=== PATIENT | female | born 1945 | race Caucasian/White ===

== ENCOUNTER 2017-03-15 13:25 | Inpatient (IN) | payer MEDICARE ==
[2017-03-15] MEDS ORDERED: Nitroglycerin 2% Ointment 1 INCH/1 GM Packet ONE (14:14)
[2017-03-15 14:21] LABS: #Basophils 0.1 thou/uL (0.0-0.2); #Eosinphils 0.1 thou/uL (0.0-0.7); #Lymphocytes 0.7 thou/uL (1.20-3.40); #Monocytes 0.4 thou/uL (0.11-0.59); %Basophils 0.6 % (0.0-1.0); %Eosinophils 0.8 % (0.0-10.0); %Lymphocytes 7.5 % (21.0-51.0); %Monocytes 4.7 % (0.0-10.0); Mean Platelet Volume 6.9 fL (7.4-10.4); Red Blood Cell (RBC) Count 4.78 mill/uL (4.20-5.40); White Blood Cell (WBC) Count 9.2 thou/uL (4.8-10.8)
--- NOTE | 2017-03-15 14:35 | RAD ---
PORTABLE CHEST ONE VIEW: 03/15/2017 2:24 p.m. HISTORY: Chest pain. Shortness of breath. COMPARISON: 06/27/2015 FINDINGS: The heart is enlarged. The aorta is tortuous. No confluent areas of consolidation, pneumothorax, f rank pulmonary edema, or pleural effusions are seen. IMPRESSION: No acute process. POS: [facility]
[2017-03-15 14:37] LABS: ALT (SGPT) 18 U/L (8-55); AST (SGOT) 21 U/L (5-34); Alkaline Phosphatase 69 U/L (40-150); Anion Gap 17 mmol/L (10-20); BUN (Urea Nitrogen) 24 mg/dL (9.8-20.1); Bilirubin, Total 0.5 mg/dL (0.2-1.2); Calc. Creatinine Clearance 0 mL/min (70-130); Calcium 10.5 mg/dL (7.8-10.44); Carbon Dioxide 23 mmol/L (23-31); Chloride 104 mmol/L (98-107); Estimated GFR-MDRD 56; Globulin 2.4 g/dL (2.4-3.5); Lipase 8 U/L (8-78); Protein, Total 5.9 g/dL (6.0-8.3)
[2017-03-15 14:38] LABS: Troponin I 0.015 ng/mL (< 0.028)
[2017-03-15 18:01] LABS: Oxyhemoglobin 95.1 % (94.0-97.0); Sodium 140 mmol/L (135-148)
[2017-03-15 18:02] LABS: Mode 4L NC; Modified Allen's Test POSITIVE; Vent NO
[2017-03-15 18:41] LABS: Troponin I 0.011 ng/mL (< 0.028)
[2017-03-15] MEDS ORDERED: Azithromycin 500 MG in Sodium Chloride 0.9% 250 ML 250 ML IVPB SCH (18:45)
[2017-03-15] MEDS ORDERED: cefTRIAXone\\ROCEPHIN 1 GM in Sodium Chloride 0.9% 100 ML IVPB SCH (18:45)
[2017-03-15] MEDS ORDERED: Acetaminophen 325 MG TAB PO PRN (18:48)
[2017-03-15] MEDS ORDERED: Ondansetron HCl/PF 4 MG/2 ML Vial IVP PRN (18:49)
[2017-03-15] MEDS ORDERED: Zolpidem Tartrate 5 MG TAB PO PRN (18:49)
[2017-03-15 19:26] VITALS: BMI 26.5
--- NOTE | 2017-03-15 20:40 | RAD ---
PA AND LATERAL CHEST: Date: 03-15-17 History: Acute respiratory failure. Comparison: 03-15-17 FINDINGS: Cardiac silhouette is enlarged. Pulmonary vasculature is within normal limits. There are increased b ibasilar interstitial densities as well as mild increased interstitial densities in the right midlun g zone. There is suggested blunting of the left lateral costophrenic angle which may represent a sma ll left pleural effusion and atelectasis. Vascular calcification seen in the thoracic aorta. There i s left glenohumeral osteoarthropathy. Right convex curvature of the thoracolumbar spine is present. No other interval change. IMPRESSION: 1. Bibasilar increased interstitial opacities which may be related to developing bibasilar infectiou s process. Follow up to complete resolution is recommended. 2. Mild cardiomegaly. POS: [facility]
[2017-03-15] MEDS ORDERED: Gabapentin 300 MG CAP PO SCH ×2 (21:00→21:30)
[2017-03-15] MEDS ORDERED: Folic Acid 1 MG TAB PO SCH ×2 (21:00→21:30)
--- NOTE | 2017-03-15 21:06 | HP ---
PRIMARY CARE PHYSICIAN: Stas Rain M.D. GRID CASTER: Dr. Shrestha The patient was referred to the [facility] from the Emergency Department after pro matthews was referred to the ER by Dr. Rain. HISTORY OF PRESENT ILLNESS: The patient states she is short of breath, has been unable to take a de ep breath for 7 days. She has marked dyspnea on exertion at a few steps, some tightness in her ches t with exertion that goes away with 10 minutes rest. She does not give any history of orthopnea or paroxysmal nocturnal dyspnea. Does not give any history of fever, sweats or chills. She does have a history of rheumatoid arthritis, vasculitis. PAST MEDICAL HISTORY: Rheumatoid arthritis, vasculitis in 2015, hypertension, dyslipidemia. CURRENT MEDICATIONS: Gabapentin 300 mg 3 times a day, Ziac 10 two tablets a day, hydrochlorothiazid e 12.5 one a day, Mobic 15 mg a day, folic acid 1 mg a day, prednisone 20 mg a day, Zocor 10 mg a da y, ramipril unknown dose daily, aspirin 81 mg a day. ALLERGIES: No known drug allergies. PAST MEDICAL HISTORY: Methotrexate by injection weekly, Rituxan by injection. PAST SURGICAL HISTORY: Right total hip replacement, bilateral carpal tunnel surgery, bilateral cynthia ract surgery with implants. FAMILY HISTORY: Mother with Alzheimer's and breast cancer. Father with prostate cancer, one sister alive and well. SOCIAL HISTORY: , is surrogate decision maker. Cigarettes, quit almost 2 years ago. Alcohol occasionally. CODE STATUS: FULL code status. REVIEW OF SYSTEMS: General: Some minimal ataxia, walks with a walker. No dizziness or fainting. Eyes: No double vis ion, blurred vision, flashing lights. ENT: No ear pain or drainage. No nasal bleeding. No troubl e swallowing. Cardiac: See present illness. Respirations: No history of asthma or wheezing. She has had a dry cough in the past. Gastrointestinal: No nausea, vomiting, diarrhea or constipation. No abdominal pain. Genitourinary: History of frequency, no dysuria or hematuria. Musculoskeleta l: Pain in her feet, she relates to her vasculitis. No swelling in her legs. No true muscle pains . Neurologic: No strokes, seizures or focal weakness. Psychiatric: No anxiety or depression. Sk in: She has had erosions on her legs, has seen Dr. Mitchell in Wound Care. Currently receiving home care for a residual wound on her left heel. Heme/Lymph: No tender or swollen lymph nodes in axill a, inguinal or cervical area. PHYSICAL EXAMINATION: GENERAL: She is alert, mildly short of breath, cooperative, pleasant lady. VITAL SIGNS: Blood pressure 145/79, pulse ox 80-85% on room air, has required 4 liters to get up to 92, respirations 18-22, pulse 60. HEENT: Pupils equal, round with implants. Extraocular movements are intact, sclerae white. Tympan ic membranes clear. Nose clear. Throat is clear. CHEST: Clear to percussion. Clear anteriorly. She has coarse rales over the bottom one-third of h er chest bilaterally posteriorly. HEART: Regular rate and rhythm, no murmurs, no gallops were appreciated. First and second heart so unds were clear. ABDOMEN: Soft, bowel sounds are normal. There is no hepatosplenomegaly, no mass, no rebound. EXTREMITIES: Reveal no cyanosis, clubbing or edema. PULSES: Carotid, radial, and femoral pulses intact. Right pedal pulse was brisk. Left pedal pulse was difficultly palpable. SKIN: Warm and dry. She has a bandaged erosion on her left heel. HEME/LYMPH: No tender or swollen lymph nodes were palpable in axilla, inguinal or cervical area. NEUROLOGICAL: Cranial nerves II-XII are intact. Moves all extremities. Deep tendon reflexes symme tric. LABORATORY AND X-RAY FINDINGS: Chest x-ray done in the emergency room is remarkably under penetrate d and inadequate. EKG: Regular sinus rhythm, ST-T depression in the lateral limb leads, T-wave rosey nges with ST abnormality in the inferior leads, in the lateral leads. Left axis deviation, possible left ventricular hypertrophy reviewed by me. The computer system is currently down and I cannot ge t into her laboratory. ASSESSMENT: 1. Acute respiratory failure with hypoxemia, chest pain, vasculitis, hypertension, dyslipidemia. PLAN: Stat PA and lateral chest x-ray for better view, stat arterial blood gases. As the computer is down now, I tended to get troponins x2 three hours apart. The patient does have pressure-like ch est pain; however, before ordering any other studies for chest pain, I need to make a definitive rolo gnosis for her acute respiratory failure which is in progress. Her care at this point is being hamp ered by the fact that our computer system is down.
[2017-03-15] MEDS ORDERED: Atorvastatin Calcium 10 MG TAB PO SCH (21:30)
[2017-03-15] MEDS: cefTRIAXone\\ROCEPHIN 1 GM in Sodium Chloride 0.9% 100 ML IVPB SCH (21:30)
[2017-03-15 21:33] LABS: Troponin I Less than 0.010 ng/mL (< 0.028)
[2017-03-15] MEDS: Azithromycin 500 MG in Sodium Chloride 0.9% 250 ML 250 ML IVPB SCH (22:04)
[2017-03-15] MEDS ORDERED: Nitroglycerin 2% Ointment 1 INCH/1 GM Packet TOP SCH (23:59)
--- NOTE | 2017-03-16 | PDOC.EVN ---
Event Note - Event Note Event Note: dX: CHEST PAIN,PROBABLE pna,VASCULITIS
[2017-03-16] MEDS ORDERED: predniSONE 20 MG TAB PO SCH (08:00)
--- NOTE | 2017-03-16 08:01 | PDOC.PN ---
- Subjective Encounter Start Date: 03/16/17 Encounter Start Time: 07:59 Subjective: SOB stable -: Pleuritic chest pain improving -: No fevers this AM - Objective MAR Reviewed: Yes Vital Signs & Weight: Vital Signs (12 hours) Temp Pulse Resp BP Pulse Ox 03/16/17 03:55 98.1 F 55 L 18 138/78 97 03/16/17 00:15 55 L 18 96/55 L 94 L 03/15/17 20:00 97.7 F 61 19 130/65 96 I&O: 03/15/17 03/16/17 03/17/17 06:59 06:59 06:59 Intake Total 590 Output Total 600 Balance -10 Result Diagrams: 03/15/17 14:14 03/15/17 14:14 Phys Exam - Physical Examination Constitutional: NAD HEENT: moist MMs, sclera anicteric Neck: no nodes, no JVD Respiratory: no wheezing, no rales bibasilar crackles Cardiovascular: no significant murmur, no rub Gastrointestinal: soft, non-tender, no distention, positive bowel sounds Neurological: non-focal, moves all 4 limbs Psychiatric: normal affect Skin: no rash, normal turgor Dx/Plan (1) Pneumonia Code(s): J18.9 - PNEUMONIA, UNSPECIFIED ORGANISM Status: Acute - Plan Bibasilar Community Acquired PNA * resulting in Fever (at home of 102), Pleuritic CP and SOB * serial cardiac enzymes normal, thus ACS ruled out * check ECHO to rule out sytolic/diastolic dysfunction in the setting of elevated BNP (will give 20mg IV lasix now) * Blood cxs: NGTD * Emperic Abx: Ceftriaxone and Azithromycin * O2 prn * monitor pulse ox * check labs in AM Dispo: Continue tele monitoring.
[2017-03-16] MEDS: Gabapentin 300 MG CAP PO SCH ×4 (08:48→21:43)
[2017-03-16] MEDS: predniSONE 20 MG TAB PO SCH (08:48)
[2017-03-16] MEDS: Meloxicam 15 MG TAB PO SCH (08:48)
[2017-03-16] MEDS ORDERED: Bisoprolol Fumarate/HCTZ 10 mg/6.25 mg Tablet PO SCH (09:00)
[2017-03-16] MEDS ORDERED: Meloxicam 15 MG TAB PO SCH (09:00)
[2017-03-16] MEDS: Bisoprolol Fumarate/HCTZ 10 mg/6.25 mg Tablet PO SCH (09:52)
[2017-03-16] MEDS ORDERED: Furosemide 20 MG/2 ML VIAL SLOW IVP SCH (11:30)
[2017-03-16] MEDS ORDERED: Atorvastatin Calcium 10 MG TAB PO SCH (21:00)
[2017-03-16] MEDS: Simvastatin 20 MG TAB PO SCH (21:43)
[2017-03-16] MEDS: Folic Acid 1 MG TAB PO SCH (21:43)
[2017-03-16] MEDS: cefTRIAXone\\ROCEPHIN 1 GM in Sodium Chloride 0.9% 100 ML IVPB SCH (21:43)
[2017-03-16] MEDS: Azithromycin 500 MG in Sodium Chloride 0.9% 250 ML 250 ML IVPB SCH (22:18)
[2017-03-17 06:55] LABS: #Eosinphils 0.2 thou/uL (0.0-0.7); #Lymphocytes 1.6 thou/uL (1.20-3.40); #Monocytes 0.7 thou/uL (0.11-0.59); %Basophils 0.4 % (0.0-1.0); %Eosinophils 2.5 % (0.0-10.0); %Monocytes 9.8 % (0.0-10.0); Hematocrit 42.5 % (36.0-47.0); Mean Platelet Volume 7.4 fL (7.4-10.4); Red Blood Cell (RBC) Count 4.57 mill/uL (4.20-5.40); White Blood Cell (WBC) Count 7.5 thou/uL (4.8-10.8)
[2017-03-17 07:16] LABS: Anion Gap 12 mmol/L (10-20); BUN (Urea Nitrogen) 26 mg/dL (9.8-20.1); Calc. Creatinine Clearance 55 mL/min (70-130); Calcium 9.7 mg/dL (7.8-10.44); Carbon Dioxide 30 mmol/L (23-31); Chloride 102 mmol/L (98-107); Estimated GFR-MDRD 53; Magnesium 1.8 mg/dL (1.6-2.6)
--- NOTE | 2017-03-17 09:38 | PDOC.PN ---
- Subjective Encounter Start Date: 03/17/17 Encounter Start Time: 09:36 Subjective: SOB stable -: no f/c -: no n/v - Objective MAR Reviewed: Yes Vital Signs & Weight: Vital Signs (12 hours) Temp Pulse Resp BP Pulse Ox 03/17/17 04:00 97.6 F 59 L 20 121/58 L 96 03/16/17 21:40 97.6 F 59 L 20 Weight Admit Weight 150 lb Weight 150 lb I&O: 03/16/17 03/17/17 03/18/17 06:59 06:59 06:59 Intake Total 590 1930 Output Total 600 2400 Balance -10 470 Result Diagrams: 03/17/17 06:40 03/17/17 06:40 Phys Exam - Physical Examination Constitutional: NAD HEENT: moist MMs, sclera anicteric Neck: no nodes, no JVD Respiratory: no wheezing, no rhonchi diminished at bases Gastrointestinal: soft, non-tender, positive bowel sounds Neurological: non-focal, moves all 4 limbs Psychiatric: normal affect Skin: no rash, normal turgor Dx/Plan (1) Pneumonia Code(s): J18.9 - PNEUMONIA, UNSPECIFIED ORGANISM Status: Acute - Plan Bibasilar Community Acquired PNA * resulting in Fever (at home of 102), Pleuritic CP and SOB * serial cardiac enzymes normal, thus ACS ruled out * s/p 1 dose of IV lasix on 03-16-17 * ECHO: EF 55-60% * Blood cxs: NGTD * Emperic Abx: Ceftriaxone and Azithromycin * O2 prn - wean as tolerated * monitor pulse ox * check labs in AM Dispo: Continue tele monitoring.
[2017-03-17] MEDS: predniSONE 20 MG TAB PO SCH (09:54)
[2017-03-17] MEDS: Gabapentin 300 MG CAP PO SCH ×4 (09:55→21:22)
[2017-03-17] MEDS: Bisoprolol Fumarate/HCTZ 10 mg/6.25 mg Tablet PO SCH (09:55)
[2017-03-17] MEDS: Meloxicam 15 MG TAB PO SCH (09:55)
[2017-03-17] MEDS: cefTRIAXone\\ROCEPHIN 1 GM in Sodium Chloride 0.9% 100 ML IVPB SCH (21:21)
[2017-03-17] MEDS: Simvastatin 20 MG TAB PO SCH (21:22)
[2017-03-17] MEDS: Folic Acid 1 MG TAB PO SCH (21:22)
[2017-03-17] MEDS: Azithromycin 500 MG in Sodium Chloride 0.9% 250 ML 250 ML IVPB SCH (21:40)
[2017-03-18 06:03] LABS: #Eosinphils 0.1 thou/uL (0.0-0.7); #Lymphocytes 1.8 thou/uL (1.20-3.40); #Monocytes 0.9 thou/uL (0.11-0.59); #Neutrophils 6.4 thou/uL (1.40-6.50); %Basophils 0.3 % (0.0-1.0); %Eosinophils 1.4 % (0.0-10.0); %Lymphocytes 19.5 % (21.0-51.0); %Monocytes 9.6 % (0.0-10.0); Mean Platelet Volume 7.3 fL (7.4-10.4); Red Blood Cell (RBC) Count 4.73 mill/uL (4.20-5.40); White Blood Cell (WBC) Count 9.3 thou/uL (4.8-10.8)
[2017-03-18 06:27] LABS: Anion Gap 13 mmol/L (10-20); BUN (Urea Nitrogen) 25 mg/dL (9.8-20.1); Calc. Creatinine Clearance 53 mL/min (70-130); Calcium 9.9 mg/dL (7.8-10.44); Carbon Dioxide 28 mmol/L (23-31); Chloride 106 mmol/L (98-107); Estimated GFR-MDRD 51
[2017-03-18 07:29] VITALS: BP 140/82; TEMP 98.2
[2017-03-18] MEDS: predniSONE 20 MG TAB PO SCH (07:33)
[2017-03-18] MEDS: Gabapentin 300 MG CAP PO SCH (07:34)
[2017-03-18] MEDS: Bisoprolol Fumarate/HCTZ 10 mg/6.25 mg Tablet PO SCH (07:34)
[2017-03-18] MEDS: Meloxicam 15 MG TAB PO SCH (07:35)
--- NOTE | 2017-03-18 08:25 | PDOC.PN ---
- Subjective Encounter Start Date: 03/18/17 Encounter Start Time: 08:25 Subjective: SOB improved again today -: No cp -: No chill/n/v - Objective MAR Reviewed: Yes Vital Signs & Weight: Vital Signs (12 hours) Temp Pulse Resp BP Pulse Ox 03/18/17 07:29 98.2 F 61 18 140/82 91 L 03/18/17 04:00 97.8 F 53 L 18 135/77 94 L 03/17/17 21:25 98.5 F 64 18 93 L 03/17/17 21:23 98.5 F 64 18 124/68 93 L Weight Admit Weight 150 lb Weight 150 lb I&O: 03/17/17 03/18/17 03/19/17 06:59 06:59 06:59 Intake Total 1930 1590 Output Total 2400 1500 Balance -470 90 Result Diagrams: 03/18/17 05:45 03/18/17 05:45 Phys Exam - Physical Examination Constitutional: NAD HEENT: moist MMs, sclera anicteric Neck: no nodes, no JVD Respiratory: no wheezing symmetric chest expansion Cardiovascular: no significant murmur, no rub Gastrointestinal: soft, non-tender, positive bowel sounds Neurological: non-focal Psychiatric: normal affect Skin: no rash, normal turgor Dx/Plan (1) Pneumonia Code(s): J18.9 - PNEUMONIA, UNSPECIFIED ORGANISM Status: Acute - Plan Bibasilar Community Acquired PNA * resulting in Fever (at home of 102), Pleuritic CP and SOB * serial cardiac enzymes normal, thus ACS ruled out * s/p 1 dose of IV lasix on 03-16-17 * ECHO: EF 55-60% * Blood cxs: NGTD * Emperic Abx: Ceftriaxone and Azithromycin - will discharge home on PO levaquin today. * O2 weaned off Discharge Home today. Discharge Summary: [id number]
--- NOTE | 2017-03-18 09:30 | DIS ---
DATE OF ADMISSION: 03/15/2017 DATE OF DISCHARGE: 03/18/2017 PRIMARY DISCHARGE DIAGNOSES: 1. Bibasilar community-acquired pneumonia. 2. Acute hypoxemic respiratory failure. HOSPITAL COURSE SUMMARY: This is a very pleasant 71-year-old female who presented with shortness of breath and initially some pleuritic chest pain. As a result of the pleuritic chest pain, the patie nt was initially admitted for chest pain rule out; however, given her chest x-ray with bibasilar inf iltrate, fever at home of 102 and pleurisy. She was diagnosed with bibasilar community-acquired p[facility] and treated with ceftriaxone and azithromycin. She was placed on oxygen and this has been no w weaned off. Her echocardiogram revealed an ejection fraction of 55%-60% and was checked as a resu lt of mild fluid overload on her chest x-ray and has responded well to single dose of IV Lasix on . Her shortness of breath had significantly wheezing improved and again she is off oxygen r equesting to go home today. For discharge physical examination, labs and imaging, please refer to my progress note from earlier today. DISCHARGE MEDICATIONS: Reviewed and reconciled. Please refer to chart for details. New medication includes Levaquin. DISCHARGE PLAN/DISPOSITION. 1. Discharged home today. 2. PCP followup in 1 week. 3. New medications will include Levaquin to complete a one-week course of antibiotics for community -acquired pneumonia. 4. Activity as tolerated. The patient has been told to avoid strenuous activity and if she feels s hort of breath or has pleuritic chest pain, she is to sit down or lie down immediately. I do not wa nt her over exerting herself, then she understands the significance of this. 5. Discharge diet, resume home diet.
== END 2017-03-18 10:51 | disposition home or self-care (01) | DRG 193 ==
LOC: SCSER 13:25 → 2SW 15:22 → OBSVTOIN 18:17 → 2NO 03-16 14:33
PROVIDERS: ADMIT Internal Medicine; ATTEND Internal Medicine
DX: J18.9 Pneumonia, unspecified organism (principal); J96.01 Acute respiratory failure with hypoxia; I10 Essential (primary) hypertension; E78.5 Hyperlipidemia, unspecified; Z87.891 Personal history of nicotine dependence; E87.70 Fluid overload, unspecified; M05.272 Rheumatoid vasculitis with rheumatoid arthritis of left ankle and foot; S91.302D Unspecified open wound, left foot, subsequent encounter
CPT/HCPCS: 36415; 71010; 71020; 80048; 80053; 82553; 82805; 83690; 83735; 83880; 84484; 85025; 87040; 93005; 93306; A4216; J0456; J0696; J1940; J7050; J7506

== ENCOUNTER 2017-06-23 12:46 | Outpatient (CLI) | payer MEDICARE ==
[~2017-06-23 12:46] MED LIST: Gadobenate Dimeglumine 529 MG/1 ML (20ML VIAL) ONE
--- NOTE | 2017-06-23 15:01 | MRI ---
MRI LEFT ANKLE WITH AND WITHOUT CONTRAST: HISTORY: L97.326 (nonpressure chronic ulcer). History of osteomyelitis. COMPARISON: Ankle MRI from 2016. FINDINGS: There is an open wound of the lateral malleolus, which extends to the cortex and medullary canal of t he distal fibula. There is abnormal loss of T1 signal osseous destruction, as well as a peripherally enhancing collection. The marrow signal of the talus and calcaneus is maintained. There is hindfoot varus. Chronic thickening of ATFL and syndesmotic ligaments. IMPRESSION: 1. Soft tissue defect of the lateral malleolus with fibular osteomyelitis. There is cortical and me dullary destruction with a sinus tract extending from the medullary canal to the skin. A peripherall y enhancing phlegmonous collection is present, likely representing intraosseous abscess formation. 2. Longitudinal split tear of peroneus brevis tendon, above and below the level of the lateral malle olus, with hindfoot varus. 3. Likely infectious myositis of the flexor and extensor muscles. 4. Severe superficial and deep soft tissue edema. 5. Tendinosis of the Achilles tendon with paratenonitis. POS: [facility]
== END 2017-06-23 12:47 | disposition home or self-care (01) ==
LOC: MRI 12:46
DX: L97.326 Non-pressure chronic ulcer of left ankle with bone involvement without evidence of necrosis (principal); M86.8X7 Other osteomyelitis, ankle and foot; S96.812A Strain of other specified muscles and tendons at ankle and foot level, left foot, initial encounter; M21.172 Varus deformity, not elsewhere classified, left ankle; M76.62 Achilles tendinitis, left leg
CPT/HCPCS: 82565; A9579

== ENCOUNTER 2018-06-30 11:20 | Outpatient (CLI) | payer MEDICARE ==
--- NOTE | 2018-06-30 15:17 | PRG ---
DATE OF SERVICE: 06/30/2018 HISTORY: Ms. Mary Kay Gannon is a very pleasant 73-year-old who presents to the Wound Center for evaluation of her left ewnhk-ubh-hslt amputation stump. The patient states that since she was last seen in the Wound Center on 11/11/2016, she was seen by Orthopedic Surgery and ultimately decided to proceed with left rnaad-xaj-udif amputation after several surgical procedures involving her ankle. Prior to undergoing encgd-mvt-mnfl amputation, the patient states that she was also found to have significant arterial insufficiency of the left lower extremity. The patient states she is presently receiving dressing changes of Santyl for the ulceration of her left rdfzx-wrw-ihfc amputation stump. She states she received dressing changes 3 times per week with the assistance of Home Health. PHYSICAL EXAMINATION: VITAL SIGNS: Temperature 97.8, pulse 46, respirations 16, blood pressure 179/83. EXTREMITIES: An ulceration of the left zernl-umf-glyn amputation stump is present, which measures approximately 3.5 x 6.3 cm. Hypergranulation is present within the wound margins. No purulent drainage is associated with the wound. No maceration of the skin of the periwound is noted. No significant edema of the left fodta-atz-hbqw amputation stump is present on exam today. Significant irritation of the skin surrounding the wound is present, which the patient attributes to adhesive from paper tape. ASSESSMENT AND PLAN: 1. Ulceration of left niwed-egv-fauk amputation stump as described above. Dressing changes of Santyl, 4x4s and Kerlix will be continued 3 times per week after cleansing and irrigation with the assistance of Home Health. The patient will also have Calmoseptine applied to the periwound at the time of dressing changes. I will see Ms. Gannon again in 2 weeks. 2. Hypertension. 3. Osteoarthritis. 4. History of broken fifth toe. Job ID: [id number]
[2018-06-30] MEDS ORDERED: Sodium Chloride 0.9% 15 ML NEB ONE (17:44)
== END 2018-06-30 11:21 | disposition home or self-care (01) ==
LOC: WCC 11:20
PROVIDERS: ATTEND Family Medicine
DX: T87.89 Other complications of amputation stump (principal); L97.929 Non-pressure chronic ulcer of unspecified part of left lower leg with unspecified severity; I10 Essential (primary) hypertension; M19.90 Unspecified osteoarthritis, unspecified site
CPT/HCPCS: A4218

== ENCOUNTER 2018-07-14 11:32 | Outpatient (CLI) | payer MEDICARE ==
--- NOTE | 2018-07-14 13:13 | PRG ---
DATE OF SERVICE: 07/14/2018 SUBJECTIVE: Ms. Mary Kay Gannon is a very pleasant 73-year-old, who presents to the Wound Center for evaluation of a wound of her left axalr-soa-fhye amputation stump. At the time of the patient's last visit, Ms. Gannon stated that after her visit to the Wound Center on 11/11/2016, she had been seen by Orthopedic Surgery and ultimately decided to proceed with left pacdy-dze-itby amputation after several surgical procedures involving her ankle. Prior to undergoing imewa-gcl-lqdl amputation, the patient states she was found to have significant arterial insufficiency of the left lower extremity. The patient is currently receiving dressing changes of Santyl for the ulceration of her left pakoj-fnh-muca amputation stump three times per week after cleansing and irrigation with the assistance of Home Health. PHYSICAL EXAMINATION: VITAL SIGNS: Temperature 97.4, pulse 51, respirations are 17, and blood pressure 181/82. EXTREMITIES: An ulceration of the left kobuf-cor-cngl amputation stump is present, which measures approximately 5.8 x 3.3 cm. The dimensions of the wound at the time of the patient's last visit were approximately 3.5 x 6.3 cm. Necrotic and nonviable tissue present within the wound margins was debrided with an excisional full-thickness debridement with the use of a curette. Hypergranulation at the periphery of the wound was treated with the application of silver nitrate. No purulent drainage is associated with the wound. No erythema of the skin surrounding the wound is present. No maceration of the skin of the periwound is noted. A popliteal pulse is palpable on the left. No significant edema of the left xxlmo-hxg-ycyh amputation stump is present on exam today. ASSESSMENT AND PLAN: 1. Ulceration of left fxhnz-vol-toqg amputation stump as described above. Dressing changes of Santyl, 4x4s, and Kerlix will be continued 3 times per week after cleansing and irrigation with the assistance of Home Health. The patient will also continue to have Calmoseptine applied to the periwound at the time of dressing changes. I will see Ms. Gannon again in 2 weeks. 2. Hypertension. 3. Osteoarthritis. Job ID: [id number]
[2018-07-14] MEDS ORDERED: Sodium Chloride 0.9% 15 ML NEB ONE ×2 (15:57→19:55)
== END 2018-07-14 11:33 | disposition home or self-care (01) ==
LOC: WCC 11:32
PROVIDERS: ATTEND Family Medicine
DX: T87.89 Other complications of amputation stump (principal); I10 Essential (primary) hypertension; M19.90 Unspecified osteoarthritis, unspecified site; Z89.512 Acquired absence of left leg below knee
CPT/HCPCS: A4218

== ENCOUNTER 2018-07-28 11:16 | Outpatient (CLI) | payer MEDICARE ==
[~2018-07-28 11:16] MED LIST changes: -Gadobenate Dimeglumine 529 MG/1 ML (20ML VIAL) ONE; +Lidocaine 2% PF 100 mg/5 ml Syringe ONE; +Sodium Chloride 0.9% 15 ML NEB ONE
--- NOTE | 2018-07-28 13:12 | PRG ---
DATE OF SERVICE: 07/28/2018 HISTORY: Ms. Mary Kay Gannon is a very pleasant 73-year-old, who presents to the Wound Center for evaluation of a wound of her left muxvy-vyh-ajij amputation stump. The patient previously stated that after her visit to the Wound Center on 11/11/2016, she had been seen by Orthopedic Surgery, and ultimately decided to proceed with left ejjdl-nua-fljp amputation after several surgical procedures involving her ankle. Prior to undergoing uqbtp-wwz-wlaq amputation, the patient states she was found to have significant arterial insufficiency of the left lower extremity. The patient is presently receiving dressing changes of Santyl for the ulceration of her left pnlpv-ibp-fqqe amputation stump 3 times per week after cleansing and irrigation with the assistance of Home Health. PHYSICAL EXAMINATION: VITAL SIGNS: Temperature 97.9, pulse 48, blood pressure 149/70. EXTREMITIES: An ulceration of the left ycasw-jch-vasn amputation stump is present, which measures approximately 4.8 x 2.7 cm. The dimensions of the wound at the time of the patient's last visit were approximately 5.8 x 3.3 cm. Necrotic and nonviable tissue present within the wound margins was debrided with an excisional full-thickness debridement with the use of a curette. Hypergranulation at the periphery of the wound was treated with the application of silver nitrate. No purulent drainage is associated with the wound. No erythema of the skin surrounding the wound is present. No maceration of the skin of the periwound is noted. No significant edema of the left ekyha-cfj-fuwg amputation stump is present on exam today. ASSESSMENT AND PLAN: 1. Ulceration of left twspv-eja-ddlx amputation stump as described above. Dressing changes of Santyl will be continued 3 times per week after cleansing and irrigation with the assistance of Home Health. The patient will also continue to have Calmoseptine applied to the periwound at the time of dressing changes. I will see Ms. Gannon again in 2 weeks. 2. Hypertension. 3. Osteoarthritis. Job ID: [id number]
== END 2018-07-28 11:17 | disposition home or self-care (01) ==
LOC: WCC 11:16
PROVIDERS: ATTEND Family Medicine
DX: T87.89 Other complications of amputation stump (principal); L97.829 Non-pressure chronic ulcer of other part of left lower leg with unspecified severity; I10 Essential (primary) hypertension; M19.90 Unspecified osteoarthritis, unspecified site
CPT/HCPCS: 11042; A4218; J2001

== ENCOUNTER 2018-08-11 11:27 | Outpatient (CLI) | payer MEDICARE ==
--- NOTE | 2018-08-11 12:53 | PRG ---
DATE OF SERVICE: 08/11/2018 HISTORY: Ms. Mary Kay Gannon is a very pleasant 73-year-old, who presents to the Wound Center for evaluation of a wound of her left isuez-aab-pcet amputation stump. The patient previously stated that after her visit to the Wound Center on 11/11/2016, she had been seen by Orthopedic Surgery and ultimately decided to proceed with a left jbqcf-fas-tojz amputation after several surgical procedures involving her ankle. Prior to undergoing snodx-bnt-hvxm amputation, the patient stated, she was found to have significant arterial insufficiency of the left lower extremity. The patient is currently receiving dressing changes of Santyl for the ulceration of her left krrxv-fjk-rcso amputation stump 3 times per week after cleansing and irrigation with the assistance of Home Health. PHYSICAL EXAMINATION: VITAL SIGNS: Temperature 97.8, pulse 45, blood pressure 177/79. EXTREMITIES: An ulceration of the left jromd-jbq-xebv amputation stump is present, which measures approximately 4.0 x 2.1 cm. The dimensions of the wound at the time of the patient's last visit were approximately 4.8 x 2.7 cm. Necrotic and nonviable tissue present within the wound margins was debrided with an excisional full-thickness debridement with the use of a curette. Hypergranulation within the wound margins was treated with the application of silver nitrate. No purulent drainage is associated with the wound. No erythema of the skin surrounding the wound is present. No maceration of the skin of the periwound is noted. No significant edema of the left tggav-hau-hakr amputation stump is present on exam today. ASSESSMENT AND PLAN: 1. Ulceration of left dmufn-ufb-yejf amputation stump as described above. Dressing changes of Santyl will be continued 3 times per week after cleansing and irrigation with the assistance of Home Health. The patient will also continue to have Calmoseptine applied to the periwound at the time of dressing changes. I will see Ms. Gannon again on 09/08/2018 at 10:00 a.m. At this time, she will also be seen by the water meter mechanic. The patient has been told that she may utilize Xeroform gauze or Medihoney in lieu of Santyl. 2. Hypertension. 3. Osteoarthritis. Job ID: [id number]
[2018-08-11] MEDS ORDERED: Sodium Chloride 0.9% 15 ML NEB ONE (19:04)
[2018-08-11] MEDS ORDERED: Lidocaine 2% 11 ML SYR ONE (19:04)
== END 2018-08-11 11:28 | disposition home or self-care (01) ==
LOC: WCC 11:27
PROVIDERS: ATTEND Family Medicine
DX: T87.89 Other complications of amputation stump (principal); L97.929 Non-pressure chronic ulcer of unspecified part of left lower leg with unspecified severity; I10 Essential (primary) hypertension; M19.90 Unspecified osteoarthritis, unspecified site
CPT/HCPCS: A4218

== ENCOUNTER 2018-09-08 10:20 | Outpatient (CLI) | payer MEDICARE ==
--- NOTE | 2018-09-08 12:06 | PRG ---
DATE OF SERVICE: 09/08/2018 HISTORY: Ms. Mary Kay Gannon is a very pleasant 73 years old, who presents to the Wound Center for evaluation of a wound of her left bxgip-esi-ekpc amputation stump. The patient previously stated that after her visit to the Wound Center on 11/11/2016, she had been seen by Orthopedic Surgery and ultimately decided to proceed with a left batnl-pew-mbwa amputation after several surgical procedures involving her ankle. Prior to undergoing qtlkr-crz-frwl amputation, the patient stated she was found to have significant arterial insufficiency of the left lower extremity. The patient is presently receiving dressing changes of Santyl for her ulceration of her left imycy-csx-kitb amputation stump 3 times per week after cleansing and irrigation with the assistance of Home Health. PHYSICAL EXAMINATION: VITAL SIGNS: Temperature 98.1, pulse 48, respirations 15, blood pressure 165/77. EXTREMITIES: An ulceration of the left vggqs-pbn-wcvk amputation stump is present, which measures approximately 4.0 x 1.8 cm. The dimensions of the wound at the time of the patient's last visit were approximately 4.0 x 2.1 cm. Necrotic and nonviable tissue present within the wound margins was debrided with an excisional full-thickness debridement. No purulent drainage is associated with the wound. No erythema of the skin surrounding the wound is present. No maceration of the skin of the periwound is noted. No significant edema of the left hleuu-vii-kuml amputation stump is present on exam today. ASSESSMENT AND PLAN: 1. Ulceration of left glvya-wqh-bcbx amputation stump as described above. Dressing changes of Santyl or Medihoney are to be performed 3 times per week after cleansing and irrigation with the assistance of Home Health. The patient will also continue to have Calmoseptine applied to the periwound at the time of dressing changes. I will see Ms. Gannon again in 3 weeks. The patient has been seen by the hydraulic lift driver today. The patient has also been told that she may utilize Xeroform gauze in lieu of Santyl or Medihoney. 2. Hypertension. 3. Osteoarthritis. Job ID: [id number]
[2018-09-08] MEDS ORDERED: Sodium Chloride 0.9% 15 ML NEB ONE (19:55)
== END 2018-09-08 10:21 | disposition home or self-care (01) ==
LOC: WCC 10:20
PROVIDERS: ATTEND Family Medicine
DX: T87.89 Other complications of amputation stump (principal); L97.829 Non-pressure chronic ulcer of other part of left lower leg with unspecified severity; I10 Essential (primary) hypertension; M19.90 Unspecified osteoarthritis, unspecified site
CPT/HCPCS: 11042; A4218

== ENCOUNTER 2018-10-03 11:29 | Outpatient (CLI) | payer MEDICARE ==
--- NOTE | 2018-10-03 12:20 | PRG ---
DATE OF SERVICE: 10/03/2018 HISTORY: Ms. Mary Kay Gannon is a very pleasant 73-year-old, who presents to the wound center for evaluation of a wound of her left unocy-rjy-dbky amputation stump. Previously, the patient stated that after her visit to the wound center on 11/11/2016 she had been seen by Orthopedic Surgery and ultimately decided to proceed with a left dygay-zio-pynx amputation after several surgical procedures involving her ankle. Prior to undergoing zkvuf-alm-trxu amputation, the patient stated she was found to have significant arterial insufficiency of the left lower extremity. The patient states that she continues to receive dressing changes with the assistance of Home Health. PHYSICAL EXAMINATION: VITAL SIGNS: Temperature 98.0, pulse 63, respirations 16, and blood pressure 183/105. EXTREMITIES: A full-thickness ulceration of the left jfmfl-tsu-sdrz amputation stump is present,which measures approximately 4.4 x 1.6 cm. The dimensions of the wound at the time of the patient's last visit were approximately 4.0 x 1.8 cm. Granulation tissue is present within the wound margins. Necrotic and nonviable tissue present within the wound margins was debrided with an excisional full-thickness debridement with the use of a curette. Moderate serous drainage is associated with the wound. No purulent drainage is associated with the wound. Erythema ofthe skin surrounding the wound is present and appears to be secondary to irritationfrom the secondary dressing. No maceration of the skin of the periwound is noted.No significant edema of the left jwaba-ofe-yhqm amputation stump is present on examtoday. Hypergranulation within the wound margins was treated with the application of silver nitrate. ASSESSMENT AND PLAN: 1. Ulceration of left chgsa-qau-mlrp amputation stump as described above. Dressing changes of Xeroform gauze and Mepilex Border are to be performed 3 times per week after cleansing and irrigation. Home Health will be discontinued as per the patient's request. The patient will also continue to have Calmoseptine applied to the periwound at the time of dressing changes. I will see Ms. Gannon again in 2 weeks. 2. Hypertension. 3. Osteoarthritis. Job ID: [id number] MTDD
[2018-10-03] MEDS ORDERED: Lidocaine 2% 11 ML SYR ONE (21:51)
[2018-10-03] MEDS ORDERED: Sodium Chloride 0.9% 15 ML NEB ONE (21:51)
== END 2018-10-03 11:30 | disposition home or self-care (01) ==
LOC: WCC 11:29
PROVIDERS: ATTEND Family Medicine
DX: T87.89 Other complications of amputation stump (principal); L97.929 Non-pressure chronic ulcer of unspecified part of left lower leg with unspecified severity; I10 Essential (primary) hypertension; M19.90 Unspecified osteoarthritis, unspecified site
CPT/HCPCS: 11042; A4218

== ENCOUNTER 2018-10-17 14:00 | Outpatient (CLI) | payer MEDICARE ==
--- NOTE | 2018-10-17 14:23 | PRG ---
DATE OF SERVICE: 10/17/2018 HISTORY: Ms. Mary Kay Gannon is a very pleasant 73-year-old, who presents to the Wound Center for evaluation of a wound of her left gdljr-ynz-wdmc amputation stump. The patient previously stated that after her visit to the Wound Center on 11/11/2016, she had been seen by Orthopedic Surgery and ultimately decided to proceed with a left wppvl-ehp-drll amputation after several surgical procedures involving her ankle. Prior to undergoing qbpka-kns-oxzy amputation, the patient stated she was found to have significant arterial insufficiency of the left lower extremity. Since the patient's last visit, Ms. Gannon has been receiving dressing changes of Xeroform and bordered gauze 3 times per week after cleansing and irrigation. PHYSICAL EXAMINATION: VITAL SIGNS: Temperature 97.6, pulse 47, respirations 18, blood pressure 165/80. EXTREMITIES: An ulceration of the left yigsw-hdr-xeoz amputation stump is present, which measures approximately 3.7 x 1.4 cm. The dimensions of the wound at the time of the patient's last visit were approximately 4.4 x 1.6 cm. Granulation tissue is present within the wound margins. Necrotic and nonviable tissue present within the wound margins was debrided with an excisional full-thickness debridement with the use of a curette. No purulent drainage is associated with the wound. Erythema of the skin surrounding the wound is still present and appears to be secondary to irritation from the secondary dressing. No maceration of the skin of the periwound is noted. No significant edema of the left nfige-txr-pnpg amputation stump is present on exam today. Hypergranulation within the wound margins was treated with the application of silver nitrate. ASSESSMENT AND PLAN: 1. Ulceration of left wzavy-dea-nwmx amputation stump as described above. Dressing changes of Xeroform gauze and Mepilex Border are to be performed 3 times per week after cleansing and irrigation. The patient will continue to have Calmoseptine applied to the periwound at the time of dressing changes. I will see Ms. Gannon again in 2 weeks. 2. Hypertension. 3. Osteoarthritis. Job ID: [id number]
[2018-10-17] MEDS ORDERED: Lidocaine 2% 11 ML SYR ONE (19:08)
[2018-10-17] MEDS ORDERED: Sodium Chloride 0.9% 15 ML NEB ONE (19:08)
== END 2018-10-17 14:01 | disposition home or self-care (01) ==
LOC: WCC 14:00
PROVIDERS: ATTEND Family Medicine
DX: T87.89 Other complications of amputation stump (principal); I10 Essential (primary) hypertension; M19.90 Unspecified osteoarthritis, unspecified site
CPT/HCPCS: 11042; A4218

== ENCOUNTER 2018-10-31 15:00 | Outpatient (CLI) | payer MEDICARE ==
--- NOTE | 2018-10-31 15:03 | PRG ---
DATE OF SERVICE: 10/31/2018 SUBJECTIVE: Mary Kay Urban is a very pleasant 73-year-old, who presents to the Wound Center for evaluation of a wound of her left wwtgm-rir-htus amputation stump. Previously, the patient stated that after her visit to the Wound Center on 11/11/2016, she had been seen by Orthopedic Surgery and ultimately decided to proceed with a left youiw-rmv-krnd amputation after several surgical procedures involving her ankle. Prior to undergoing dzagf-wzc-leiq amputation, the patient stated she was found to have significant arterial insufficiency of the left lower extremity. Since the patient's last visit, Ms. Gannon has been receiving dressing changes of Xeroform gauze and Mepilex Border 3 times per week after cleansing and irrigation. PHYSICAL EXAMINATION: VITAL SIGNS: Temperature 97.9, pulse 80, respirations 18, blood pressure 166/85. EXTREMITIES: An ulceration of the left hemal-swg-hhuv amputation stump is present, which measures approximately 3.5 x 1.4 x 0.1 cm. The dimensions of the wound at the time of the patient's last visit were approximately 3.7 x 1.4 cm. Granulation tissue was present within the wound margins. Hypergranulation within the wound margins was treated with the application of silver nitrate. Moderate drainage is associated with the wound, serosanguineous. Erythema of the skin surrounding the wound is still present and again appears to be secondary to irritation from the secondary dressing. No maceration of the skin of the periwound is noted. No significant edema of the left ivwgg-uvb-oxou amputation stump is present on exam today. ASSESSMENT AND PLAN: 1. Ulceration of left rbiyc-tmi-bmzj amputation stump as described above. Dressing changes of Xeroform gauze and ABD followed by the patient's compression garment are to be performed on a daily basis after cleansing and irrigation. The patient will continue to have Calmoseptine applied to the periwound at the time of dressing changes. I will see Ms. Gannon again in 2 weeks. 2. Hypertension. 3. Osteoarthritis. Job ID: [id number]
[2018-10-31] MEDS ORDERED: Sodium Chloride 0.9% 15 ML NEB ONE (18:00)
== END 2018-10-31 15:01 | disposition home or self-care (01) ==
LOC: WCC 15:00
PROVIDERS: ATTEND Family Medicine
DX: T87.89 Other complications of amputation stump (principal); I10 Essential (primary) hypertension; M19.90 Unspecified osteoarthritis, unspecified site; Z89.512 Acquired absence of left leg below knee
CPT/HCPCS: A4218

== ENCOUNTER 2018-11-16 16:27 | Outpatient (CLI) | payer MEDICARE ==
--- NOTE | 2018-11-16 14:18 | PRG ---
DATE OF SERVICE: 11/16/2018 HISTORY: Ms. Mary Kay Gannon is a very pleasant 73-year-old, who presents to the Wound Center for evaluation of a wound of her left xhzwm-xxl-vlmu amputation stump. The patient previously stated that after her visit to the Wound Center on 11/11/2017, she had been seen by Orthopedic Surgery and ultimately decided to proceed with a left dakfs-nay-ydtb amputation after several surgical procedures involving her ankle. Prior to undergoing zlxiz-zpy-xkhd amputation, the patient stated she was found to have significant arterial insufficiency of the left lower extremity. Since the patient's last visit, Ms. Gannon has been receiving dressing changes of Xeroform gauze for her left hnelz-gdo-gely amputation stump wound. PHYSICAL EXAMINATION: VITAL SIGNS: Temperature 97.5, pulse 43, respirations 18, blood pressure 151/93. EXTREMITIES: An ulceration of the left wliwb-prp-nzym amputation stump is present, which measures approximately 1.0 x 3.0 cm. Granulation tissue is present within the wound margins. No purulent drainage is associated with the wound. Erythema of the skin surrounding the wound is present and again appears to be secondary to irritation from a secondary dressing. No maceration of the skin of the periwound is noted. No significant edema of the left jovgj-qhe-fcsz amputation stump is present on exam today. ASSESSMENT AND PLAN: 1. Ulceration of left rsdvg-wtz-tbiz amputation stump as described above. Dressing changes of Xeroform gauze will be continued on a daily basis after cleansing and irrigation. The patient will continue to have Calmoseptine applied to the periwound as needed at the time of dressing changes. I will see Ms. Gannon again in 3 weeks. The patient is now being seen by a rubber compounder formulator. 2. Hypertension. 3. Osteoarthritis. Job ID: [id number]
[2018-11-16] MEDS ORDERED: Sodium Chloride 0.9% 15 ML NEB ONE (18:00)
== END 2018-11-16 16:28 | disposition home or self-care (01) ==
LOC: WCC 16:27
PROVIDERS: ATTEND Family Medicine
DX: T87.89 Other complications of amputation stump (principal); L97.829 Non-pressure chronic ulcer of other part of left lower leg with unspecified severity; I10 Essential (primary) hypertension; M19.90 Unspecified osteoarthritis, unspecified site
CPT/HCPCS: 97602; A4218

== ENCOUNTER 2018-11-30 12:53 | Outpatient (CLI) | payer MEDICARE ==
--- NOTE | 2018-11-30 13:53 | BD ---
DEXA BONE SCAN: HISTORY: Age-related osteoporosis. DEXA bone scan was performed using H[employer] bone mineral density unit. Comparison made to previous exam from 04/01/2017. Lumbar spine:. L1 0.86 T score -1.2 Z score 0.8 L2 0.88 T score -1.3 Z score 0.8 L3 1.12 T score 0.3 Z score 2.6 L4 1.12 T score 0.5 Z score 2.9 Composite 1.01 T score -0.4 Z score 1.8 Findings compatible with normal bone mineral density. Left hip: Femoral neck 0.62 T score -2.1 Z score -0.2 Composite 0.74 T score -1.7 Z score -0.1 Findings compatible with osteopenia. IMPRESSION: Findings suggesting osteopenia. The patient has mild increased risk of osteoporotic fractures. Transcribed Date/Time: 11/30/2018 2:12 PM
--- NOTE | 2018-11-30 14:26 | MMO ---
Bilateral MAMMO Bilat Screen [facility]. CLINICAL HISTORY: Patient is 73 years old and is seen for screening. The patient has the following family history of breast cancer: mother, at age 80. The patient has no personal history of cancer. VIEWS: The views performed were: bilateral craniocaudal with tomosynthesis and bilateral mediolateral oblique with tomosynthesis. FILMS COMPARED: The present examination has been compared to a prior imaging study performed at [facility] on 02/11/2017. MAMMOGRAM FINDINGS: The breasts are heterogeneously dense, which could obscure a lesion on mammography. There are stable benign appearing calcifications seen in both breasts. There are no suspicious masses, suspicious calcifications, or new areas of architectural distortion. IMPRESSION: THERE IS NO MAMMOGRAPHIC EVIDENCE OF MALIGNANCY. A ROUTINE FOLLOW-UP MAMMOGRAM IN 1 YEAR IS RECOMMENDED. THE RESULTS OF THIS EXAM WERE SENT TO THE PATIENT. ACR BI-RADS Category 2 - Benign finding MAMMOGRAPHY NOTE: 1. A negative mammogram report should not delay a biopsy if a dominant of clinically suspicious mass is present. 2. Approximately 10% to 15% of breast cancers are not detected by mammography. 3. Adenosis and dense breasts may obscure an underlying neoplasm.
== END 2018-11-30 12:54 | disposition home or self-care (01) ==
LOC: BICMAMMO 12:53
PROVIDERS: ATTEND Family Medicine
DX: Z12.31 Encounter for screening mammogram for malignant neoplasm of breast (principal); Z13.820 Encounter for screening for osteoporosis; Z78.0 Asymptomatic menopausal state; Z80.3 Family history of malignant neoplasm of breast
CPT/HCPCS: 77063; 77067; 77080

== ENCOUNTER 2018-12-07 13:20 | Outpatient (CLI) | payer MEDICARE ==
--- NOTE | 2018-12-07 14:21 | PRG ---
DATE OF SERVICE: 12/07/2018 HISTORY: Ms. Mary Kay Gannon is a very pleasant 73-year-old, who presents to the Wound Center for evaluation of a wound of her left dnjud-zsu-nowy amputation stump. The patient previously stated that after her visit to the Wound Center on 11/11/2017, she had been seen by Orthopedic Surgery and ultimately decided to proceed with a left lmaae-kla-xues amputation after several surgical procedures involving her ankle. Prior to undergoing left kaskf-yne-yxaw amputation, the patient stated she was found to have significant arterial insufficiency of the left lower extremity. Since the patient's last visit, Ms. Gannon has been receiving dressing changes of Xeroform gauze for her left eyixo-kij-jzaa amputation stump wound. Calmoseptine is applied to the periwound at the time of dressing changes. PHYSICAL EXAMINATION: VITAL SIGNS: Temperature 97.7, pulse 49, respirations 17, and blood pressure 137/87. EXTREMITIES: An ulceration of the left sisyw-qrd-zxie amputation stump is present, which measures approximately 2.5 x 0.9 cm. The dimensions of the wound at the time of the patient's visit on 11/16/2018 were approximately 1.0 x 3.0 cm. Granulation tissue is present within the wound margins. No purulent drainage is associated with the wound. No cellulitis of the left mhbbj-ykz-mohl amputation stump is appreciated. No maceration of the skin of the periwound is noted. No significant edema of the left jkuau-rcn-ikph amputation stump is present on today's exam. ASSESSMENT AND PLAN: 1. Ulceration of left dwtkk-smv-cqfu amputation stump as described above. Dressing changes of Xeroform gauze will be continued 3 times per week after cleansing and irrigation. Calmoseptine to the periwound will be continued as needed at the time of dressing changes. I will see Ms. Gannon again in 3 weeks. 2. Hypertension. 3. Osteoarthritis. Job ID: [id number]
[2018-12-07] MEDS ORDERED: Sodium Chloride 0.9% 15 ML NEB ONE (15:00)
[2018-12-07] MEDS ORDERED: Lidocaine 2% PF 100 mg/5 ml Syringe ONE (15:00)
== END 2018-12-07 13:21 | disposition home or self-care (01) ==
LOC: WCC 13:20
PROVIDERS: ATTEND Family Medicine
DX: T87.89 Other complications of amputation stump (principal); L97.929 Non-pressure chronic ulcer of unspecified part of left lower leg with unspecified severity; I10 Essential (primary) hypertension; M19.90 Unspecified osteoarthritis, unspecified site
CPT/HCPCS: 97602; A4218; J2001

== ENCOUNTER 2018-12-28 13:27 | Outpatient (CLI) | payer MEDICARE ==
--- NOTE | 2018-12-28 12:00 | PRG ---
DATE OF SERVICE: 12/28/2018 SUBJECTIVE: Ms. Rosa Gannon is a very pleasant 73-year-old, who presents to the Wound Center for evaluation of a wound of her left ijkgh-ooi-rzyy amputation stump. The patient previously stated that after her visit to the Wound Center on 11/11/2017, she had been seen by Orthopedic Surgery and ultimately decided to proceed with a left hfaya-uqb-lfci amputation after several surgical procedures involving her ankle. Prior to undergoing left zavar-erw-wawe amputation, the patient stated she was found to have significant arterial insufficiency of the left lower extremity. Since the patient's last visit, Ms. Gannon has been receiving dressing changes of Xeroform gauze for her left ejibu-hqe-wvdz amputation stump wound. Calmoseptine is applied to the periwound at the time of dressing changes. PHYSICAL EXAMINATION: VITAL SIGNS: Temperature 98.0, pulse 55, respirations 18, blood pressure 149/78. EXTREMITIES: An ulceration of the left qwfuu-cfz-aiss amputation stump is present, which measures approximately 2.2 x 0.8 cm. The dimensions of the wound at the time of the patient's visit on 12/07/2018 were approximately 2.5 x 0.9 cm. Granulation tissue is present within the wound margins. No purulent drainage is associated with the wound. No cellulitis of the left wfaax-blm-vsoi amputation stump is appreciated. No maceration of the skin of the periwound is noted. No significant edema of the left iqeoj-qob-fuyl amputation stump is present on today's exam. ASSESSMENT AND PLAN: 1. Ulceration of left iqlux-lfo-jgum amputation stump as described above. Dressing changes of Xeroform gauze will be continued 3 times per week after cleansing and irrigation. Calmoseptine to the periwound will be continued as needed at the time of dressing changes. I have asked the patient to return to clinic in 2 weeks. 2. Hypertension. 3. Osteoarthritis. Job ID: [id number]
[2018-12-28] MEDS ORDERED: Sodium Chloride 0.9% 15 ML NEB ONE (18:00)
== END 2018-12-28 13:28 | disposition home or self-care (01) ==
LOC: WCC 13:27
PROVIDERS: ATTEND Family Medicine
DX: T81.89XD Other complications of procedures, not elsewhere classified, subsequent encounter (principal); I10 Essential (primary) hypertension; M19.90 Unspecified osteoarthritis, unspecified site; Z89.512 Acquired absence of left leg below knee
CPT/HCPCS: 97602; A4218

== ENCOUNTER 2019-03-30 10:07 | Inpatient (IN) | payer MEDICARE ==
[2019-03-30 11:26] LABS: Bilirubin Negative (Negative); Blood, Urine Large (Negative); Glucose, Urine (Dipstick) Negative (Negative); Leukocyte Negative (Negative); Nitrite Negative (Negative); Protein, Urine (Dipstick) 100 mg/dL (Neg-Trace); Urobilinogen 0.2 mg/dL (Less than 2)
[2019-03-30 11:28] LABS: Clarity Clear (Clear)
--- NOTE | 2019-03-30 11:31 | RAD ---
Exam: Chest one view HISTORY:Decreased appetite x2 weeks Comparison: 03/15/1970 FINDINGS: Cardiac silhouette: Normal Aorta: Atherosclerosis of the aortic knob Pulmonary vessels: Normal Costophrenic angles: Clear LUNGS: Patchy interstitial opacities in the lung bases may represent atelectasis, aspiration or infil trate. Pneumothorax: None Osseous abnormalities: None IMPRESSION: 1. Patchy interstitial opacities lung bases may represent atelectasis, pneumonia or aspiration. 2. Atherosclerosis of the aortic knob
[2019-03-30 11:32] LABS: Bacteria/HPF 2+ HPF (None Seen); RBC/HPF Greater than 50 HPF (0-3); Squamous Epithelial 0-3 HPF (0-3); WBC/HPF 0-3 HPF (0-3)
--- NOTE | 2019-03-30 11:45 | CT ---
CT BRAIN WITHOUT CONTRAST: Date: 03/30/19 HISTORY: Fall, headache. FINDINGS: There are changes of cortical atrophy and chronic small vessel ischemic disease. The ventricular size is appropriate and the basilar cisterns are patent. No evidence of acute infarct, hemorrhage, midlin e shift, or abnormal extra-axial fluid collections are seen. The bony calvarium is intact. The visual ized paranasal sinuses and mastoid air cells are well aerated. IMPRESSION: No CT evidence of acute intracranial process. POS: OFF
[2019-03-30 12:15] LABS: #Eosinphils 0.3 thou/uL (0.0-0.7); #Lymphocytes 0.9 thou/uL (1.20-3.40); #Monocytes 0.6 thou/uL (0.11-0.59); %Basophils 0.3 % (0.0-1.0); %Eosinophils 2.1 % (0.0-10.0); %Lymphocytes 6.7 % (21.0-51.0); %Monocytes 4.3 % (0.0-10.0); %Neutrophils 86.7 % (42.0-75.0); Hemoglobin 10.1 g/dL (12.0-16.0); Mean Corpuscular HGB CONC 33.4 g/dL (32.0-36.0); Mean Corpuscular Hemoglobin 27.1 pg (27.0-31.0); Mean Platelet Volume 7.3 fL (7.4-10.4); Platelet Count 326 thou/uL (130-400); RBC Distribution Width 14.1 % (11.5-14.5); Red Blood Cell (RBC) Count 3.72 mill/uL (4.20-5.40); White Blood Cell (WBC) Count 13.9 thou/uL (4.8-10.8)
[2019-03-30 12:36] LABS: ALT (SGPT) 9 U/L (8-55); AST (SGOT) 11 U/L (5-34); Alkaline Phosphatase 140 U/L (40-110); Anion Gap 15 mmol/L (10-20); BUN (Urea Nitrogen) 69 mg/dL (9.8-20.1); Bilirubin, Total 0.5 mg/dL (0.2-1.2); Calc. Creatinine Clearance 0 mL/min (70-130); Calcium 11.1 mg/dL (7.8-10.44); Carbon Dioxide 25 mmol/L (23-31); Chloride 94 mmol/L (98-107); Estimated GFR-MDRD 19; Glucose 124 mg/dL (83-110); Lipase 6 U/L (8-78); Sodium 131 mmol/L (136-145)
[2019-03-30 12:58] LABS: CKMB 0.9 ng/mL (0-6.6)
--- NOTE | 2019-03-30 13:27 | PDOC.FPRHP ---
- History of Present Illness Chief Complaint: decreased appetite and food tolerance History of Present Illness: Historians include patient, , son, and caregiver. Patient is oriented to person ([facility]), place ([facility]), unsure of date or year. Patient's reports progressive confusion over the past few weeks (steep decline that has been evaluated by PCP). Gets worse throughout the day. Decreased appetite with vomiting of solid food and difficulty swallowing solids. Tolerates liquid. Has lost between 10 to 25 lbs. Patient fell 1 month ago which appears to have triggered the decline per family. Trauma to head at that time. Evaluated in [place] at that time. Reports weakness and fatigue. Voice has weakened. Not completing sentences. Difficulty with focusing. Not able to live independently now. Last Wednesday after endoscopy, which diagnosed a gastric ulcer and upper esophagitis, she experienced dark stools and on Wednesday as well. Patient reports occasional abdominal pain. Has Urinary incontinence at baseline but this has worsened. 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 She is usually sharp of mind, finishes sentences without difficulty, and oriented x4. PCP: Briseyda GI: David ED Course: In ED pt received supportive care and workup. Fluids given. - Allergies/Adverse Reactions Allergies Allergy/AdvReac Type Severity Reaction Status Date / Time No Known Allergies Allergy Verified 03/15/17 18:35 - Home Medications Medication Instructions Recorded Confirmed Type Hydrochlorothiazide 12.5 mg PO DAILY 06/11/15 03/30/19 History Meloxicam [Mobic] 15 mg PO DAILY 06/11/15 03/30/19 History Simvastatin [Zocor] 20 mg PO HS 06/11/15 03/30/19 History Bisoprolol Fumarate/HCTZ [Ziac] 2 tab PO DAILY 05/15/16 03/30/19 History Folic Acid 1 mg PO DAILY 05/15/16 03/31/19 History Megestrol Acetate 400 mg PO BID 03/31/19 03/31/19 History - History PMHx: - RA - HTN - HLD - CKD - Vasculitis, dx in 2014 - Gastric ulcer, GERD - Urinary incontinence - Normocytic anemia PSHx: - 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 Mother: Breast cancer. Dementia. Uncle: DM. Social: Tobacco: 50 pack-years (stopped in 2016), social alcohol use, no drug use Retired. Lives with in [place]. Caregiver 5 days per week. Has 2 healthy sons that are . - Review of Systems ROS unobtainable: other (patient distractable, family gave ROS) General: reports: weight/appetite/sleep changes, fatigue. denies: fever/chills , night sweats Eyes: denies: vision changes ENT: denies: nasal congestion Respiratory: denies: cough, congestion, shortness of breath Cardiovascular: denies: chest pain, edema Gastrointestinal: reports: vomiting (no hematemesis), abdominal pain (minimal), GI bleeding (melena), other (no bowel incontinence). denies: diarrhea, constipation Genitourinary: reports: incontinence (worse than at baseline). denies: dysuria , polyuria, discharge Skin: denies: rashes, lesions, itching Musculoskeletal: reports: arthritis/arthralgias. denies: pain, swelling Neurological: reports: weakness. denies: seizure Psychological: denies: anxiety, depression - Vital signs BP: 100/71 HR: 79 RR: 16 Tmax: _ Pox: 95% on RA - Physical Exam Constitutional: NAD, awake, alert and oriented (oriented to person and place, not to time), other (thin body habitus) HEENT: normocephalic and atraumatic, PERRLA, EOMI (distracted and had to be prompted to keep following w/ her eyes), conjunctiva clear, no scleral icterus, grossly normal vision, TM's clear and intact, grossly normal hearing, oropharynx clear -HEENT: mucous membranes dry Neck: supple, trachea midline, no LAD, no thyromegaly Chest: no-tender to palpation, no lesions Heart: RRR, normal S1/S2, no murmurs/rubs/gallops, pulses present, no edema Lungs: CTAB, no respiratory distress, no retractions Abdomen: soft, non-tender, bowel sounds present, no masses/distention, no hernias Musculoskeletal: normal structure, normal tone (L leg amputated below knee, well healed scar over stump, no dehiscence or evidence of infection) Neurological: CN II-XII intact (although had trouble obeying commands) -Neurological: strength 4/5 in hands b/l, strength 3/5 in lower extremities, could not follow commands to assess for pronator drift or asterixis, did not finish sentences, could form words that were logical and made sense Skin: no rash/lesions, no jaundice Heme/Lymphatic: no unusual bruising or bleeding, no purpura, no petechia Psychiatric: intact recent and remote memory FMR H&P: Results - Labs Result Diagrams: 04/02/19 03:53 04/02/19 03:53 Lab results: WBC 13.9 thou/uL (4.8-10.8) H 03/30/19 11:58 Hgb 10.1 g/dL (12.0-16.0) L 03/30/19 11:58 Hct 30.1 % (36.0-47.0) L 03/30/19 11:58 MCV 81.0 fL (78.0-98.0) 03/30/19 11:58 Plt Count 326 thou/uL (130-400) 03/30/19 11:58 Neutrophils % 86.7 % (42.0-75.0) H 03/30/19 11:58 Sodium 131 mmol/L (136-145) L 03/30/19 11:58 Potassium 3.0 mmol/L (3.5-5.1) L 03/30/19 11:58 Chloride 94 mmol/L (98-107) L 03/30/19 11:58 Carbon Dioxide 25 mmol/L (23-31) 03/30/19 11:58 BUN 69 mg/dL (9.8-20.1) H 03/30/19 11:58 Creatinine 2.51 mg/dL (0.6-1.1) H 03/30/19 11:58 Glucose 124 mg/dL (83-110) H 03/30/19 11:58 Calcium 11.1 mg/dL (7.8-10.44) H 03/30/19 11:58 Total Bilirubin 0.5 mg/dL (0.2-1.2) 03/30/19 11:58 AST 11 U/L (5-34) 03/30/19 11:58 ALT 9 U/L (8-55) 03/30/19 11:58 Alkaline Phosphatase 140 U/L (40-110) H 03/30/19 11:58 CK-MB (CK-2) 0.9 ng/mL (0-6.6) 03/30/19 11:58 Serum Total Protein 6.0 g/dL (6.0-8.3) 03/30/19 11:58 Albumin 3.0 g/dL (3.4-4.8) L 03/30/19 11:58 Lipase 6 U/L (8-78) L 03/30/19 11:58 Urine Ketones Negative mg/dL (Negative) 03/30/19 11:08 Urine Blood Large (Negative) A 03/30/19 11:08 Urine Nitrite Negative (Negative) 03/30/19 11:08 Ur Leukocyte Esterase Negative (Negative) 03/30/19 11:08 Urine RBC Greater than 50 HPF (0-3) A 03/30/19 11:08 Urine WBC 0-3 HPF (0-3) 03/30/19 11:08 Ur Squamous Epith Cells 0-3 HPF (0-3) 03/30/19 11:08 Urine Bacteria 2+ HPF (None Seen) A 03/30/19 11:08 - Radiology Interpretation Chest x-ray Status: report reviewed by me (patchy interstitial opacities) CT scan - head Status: report reviewed by me (chronic changes) FMR H&P: A/P - Problem List (1) Acute kidney injury superimposed on chronic kidney disease Current Visit: Yes Status: Acute Code(s): N17.9 - ACUTE KIDNEY FAILURE, UNSPECIFIED; N18.9 - CHRONIC KIDNEY DISEASE, UNSPECIFIED (2) Acute encephalopathy Current Visit: Yes Status: Acute Code(s): G93.40 - ENCEPHALOPATHY, UNSPECIFIED (3) Dyslipidemia Current Visit: No Status: Chronic Code(s): E78.5 - HYPERLIPIDEMIA, UNSPECIFIED (4) Hypertension Current Visit: No Status: Chronic Code(s): I10 - ESSENTIAL (PRIMARY) HYPERTENSION (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 Code(s): M05.20 - RHEUMATOID VASCULITIS WITH RHEUMATOID ARTHRITIS OF [facility] SITE (6) Hypokalemia Current Visit: Yes Status: Acute Code(s): E87.6 - HYPOKALEMIA - Plan 73-year-old relatively healthy female previously, admitted for acute decompensation: Acute encephalopathy S/P fall w/ head trauma - DDx of Etiology includes: UTI, volume depletion, metabolic changes such as Uremia since BUN is high or thyroid problems, hydrocephalus given worsening urinary incontinence, vascular dementia, stroke, neoplasm although not within the brain as head CT was negative for intraparenchymal lesions. Of particular concern are GI cancers given melena. - CT head showing chronic changes - Neuro consulted, appreciate recs - Routine neuro checks UTI CXR indicative of PNA, aspiration vs. infiltrate, vs. atelectasis - treating w/ rocephin, day 1. Will cover common UTI and PNA pathogens - PT/OT/Speech eval and treat - WBC elevated w/ left shift - UA w/ large amounts of blood, >50 per hpf RBC, 100 protein, and 2+ bacteria - urine culture pending. GI bleeding in setting of known gastric ulcer Normocytic anemia - Hgb appears decreased from baseline - FOBT collected and pending - Consulted GI, appreciate recs - May consider repeat colonoscopy as outpatient. Do not believe pt is acutely and actively bleeding at this time. - Consider uremic bleeding, which can present cutaneously or as GI bleeding, in pt's suffering from uremia. - CT scan of abd/pelvis w/ and w/o oral and IV contrast Hypokalemia Hypochloremia - replaced orally, monitor - check Magnesium, phosphorus in AM. FELICIANO on CKD, with Uremia - Cr 2.51 on admission. Baseline appears to be ~1.0. - BUN 69. BUN/Cr = 27. Points more towards prerenal azotemia vs. ATN. Also could be related to the GI bleed of this patient. - Fluid resuscitate w/ NS. - If BUN does not improve with respiratory measures, we will possibly need to consider dialysis. Difficult to assess asterixis in this pt as she was weak and not really able to lift her arms to follow commands. Rheumatoid vasculitis - hold meloxicam - hold other home nephrotoxic medications: ramipril, HCTZ HTN HLD - Give statin - hold HCTZ, give bisoprolol-hctz Code: FULL VTE PPx: heparin 5000 SC TID GI PPx: famotidine bid Fluids: NS 125mL/hr Paula Robert MD PGY1 Disposition/LOS: Admit to stroke inpatient. LOS > 48H anticipated FMR H&P: Upper Level - Plan Date/Time: 03/30/19 1314 PCP: Briseyda HPI: This 72 yo F comes in with 2-3 weeks of overall global decline. She has a PMH including RA, HTN, HLD, and vasculitis resulting in L BKA. The , son, and caregiver are available at the bedside. The patient has not been eating anything but liquids for the last 2-3 weeks, was sent to ED by PCP for evaluation for weight loss and global decline. Patient is AxOx2, she is speaking in short phrases and family says she usually is sharp and speaks in complete sentences. She did have an EGD 6 days days ago which revealed gastric ulcer. Has been having dark stools last 4 days, had colonoscopy 6 years ago which revealed a polyp, she is currently due for repeat. Family does report a fall 1 mo ago but denies hitting head or LOC. Spoke with patients PCP who states patient is usually quite active and this is quite different from her baseline Vitals: T: 98.1 R: 19 BP: 121/75 P:73 Sat: 96% on RA PHYSICAL EXAMINATION: General: NAD, alert and oriented x2, speaking in short phrases, no slurring HEENT: PERRLA, EOMI, normal sclera, oropharynx without erythema or exudate Neck: Supple. Full ROM. Heart/Cardiovascular System: RRR, Cap refill < 3 seconds, no rub, no murmur Lungs/Respiratory System: clear to auscultation bilaterally. No increased work of breathing. Room air. Abdomen/Gastro-Intestinal System: no abdominal tenderness, normal bowel sounds, no masses, no organomegaly Extremities: L BKA. No cyanosis or edema. Neuro: Global weakness appreciated, unable to lift R leg off of the bed. CN 2- 12 grossly intact Psychiatry: Awake, Alert and cooperative with exam Skin: No lesions, rashes, or ulcers Musculoskeletal: Full ROM A/P: # Weight loss r/o cancer source - Hx of smoking, dark stools, r/o cancer - Recent EGD, no reported stricture, small gastric ulcer - CT abd/pelvis to eval for cancerous source - ST consulted, ESR pending # UTI, possible aspiration - Ucx, rocephin - Thickened liquid diet until ST eval # RA - Not reporting pain at the moment, no biologics at this time # FELICIANO - IVF Trend trops, replete K Addendum - Attending - Attending Attestation Date/Time: 03/30/19 7338 I personally evaluated the patient and discussed the management with Dr. Robert and Dr. Hansen I agree with the History, Examination, Assessment and Plan documented above with any addition or exceptions noted below. Admit for workup due to evidence of mild encephalopathy and failure to thrive that has been progressive. Will follow up with PCP to see if previous workup performed. Due to GI symptoms will consult GI inpatient. Hold renal toxic meds to see if renal function will recover. Continue IVFs. Chris
[2019-03-30] MEDS ORDERED: Ondansetron PF 4 MG/2 ML Vial IVP PRN (13:55)
[2019-03-30] MEDS ORDERED: Ondansetron ODT 4 MG TAB PO PRN (13:55)
[2019-03-30] MEDS ORDERED: cefTRIAXone\\ROCEPHIN 1 GM VIAL ONE (14:56)
[2019-03-30 15:50] LABS: Troponin I 0.059 ng/mL (< 0.028)
[2019-03-30 16:34] VITALS: BMI 21.5
[2019-03-30] MEDS: Sodium Chloride 0.9% 1,000 ML IV SCH (16:38)
[2019-03-30] MEDS ORDERED: Potassium Chloride 20 MEQ TAB PO SCH (17:00)
[2019-03-30] MEDS ORDERED: Bisacodyl 5 MG TAB PO PRN (18:00)
[2019-03-30 18:24] LABS: Troponin I 0.047 ng/mL (< 0.028)
[2019-03-30] MEDS ORDERED: Famotidine/PF 20 mg/2ml Vial SLOW IVP SCH (21:00)
--- NOTE | 2019-03-30 21:25 | CON ---
DATE OF CONSULTATION: 03/30/2019 CONSULT PHYSICIAN: [facility]. IMPRESSION: Mild uremic encephalopathy. PLAN: Hydration and nutrition. HISTORY OF PRESENT ILLNESS: Ms. Gannon is a 73-year-old white female, who lives at home with her . She has not been doing very well lately. She has lost her appetite due to chronic nausea when she tried to eat solid food. She was seen by Dr. Hernandez about a week ago. She had an endoscopy done and was found to have a small peptic ulcer. They did see one black stool last week, have not noticed any bleeding since then. She has been on medication for the ulcer. She has continued to have a poor appetite. She reportedly is drinking 3 cans of Ensure a day along with 5 bottles of water. Her noticed that she started having trouble completing sentences. She was losing her train of thought and brought her into the hospital for evaluation. She was noted to be a bit anemic with an H and H of 10 and 30. She is uremic with a BUN of 65 and creatinine of 2.55. She has not run any fever. Her urine was a bit suspicious for an infection. She has not been hallucinating or having any delusional thoughts. She has not been sleeping soundly through the night, but does not have any agitated behavior. PAST MEDICAL HISTORY: Hypertension, hyperlipidemia. MEDICATIONS: Medication list was reviewed. ALLERGIES: NONE REPORTED. SOCIAL HISTORY: No tobacco or alcohol. FAMILY HISTORY: Noncontributory. REVIEW OF SYSTEMS: Ten-system review of systems is otherwise negative. PHYSICAL EXAMINATION: GENERAL: She is a reasonably well-nourished appearing elderly lady, lying in bed, in no distress. VITAL SIGNS: She has been afebrile since admission according to the nurse. HEENT: Pupils are equal and reactive. Conjunctivae are clear. Oropharynx is clear. Cranium, normocephalic and atraumatic. NECK: Supple. No lymphadenopathy. EXTREMITIES: She has a BKA of the right leg. NEUROLOGIC: She is alert and cooperative. She is oriented other than she got the month wrong. She follows commands appropriately. She is a little slow in her response time. Her speech is fluent and clear. Cranial nerves are intact. Motor exam shows good freight forwarder strength bilaterally. There is no tremor or asterixis present. Gait is not tested. Sensation is intact to light touch. IMAGING: CT scan of the brain showed just some age-related changes. SUMMARY: This is an elderly lady with poor intake over the last few weeks with secondary weight loss. She came in uremic. She is a bit anemic as well. CAT scan does not show any acute abnormalities. She has nothing focal on exam. She would appear to have a probable toxic metabolic encephalopathy. Job ID: [id number]
[2019-03-30] MEDS: Heparin 5,000 UNITS/ML VIAL SC SCH (21:27)
[2019-03-30] MEDS: Simvastatin 20 MG TAB PO SCH (21:27)
[2019-03-31] MEDS: Sodium Chloride 0.9% 1,000 ML IV SCH ×4 (00:21→20:43)
--- NOTE | 2019-03-31 06:01 | PDOC.FM ---
- Subjective Subjective: Pt Ax0 x2 today. Somnolent. Denies having any pain. She has been stable. Denies needs or questions. - Objective MAR Reviewed: Yes Vital Signs & Weight: Vital Signs (12 hours) Temp Pulse Resp BP Pulse Ox 03/31/19 04:31 98.1 F 84 16 117/73 95 03/30/19 23:54 98.3 F 86 18 121/84 94 L 03/30/19 20:20 98.1 F 83 16 118/74 95 03/30/19 20:00 93 L Weight Weight 55.111 kg Result Diagrams: 03/31/19 05:36 03/31/19 05:36 Phys Exam - Physical Examination Constitutional: NAD Respiratory: no wheezing, clear to auscultation bilateral Cardiovascular: RRR (possible 2/6 murmur), no rub Gastrointestinal: soft, non-tender, no distention Musculoskeletal: no edema Skin: no rash Dx/Plan (1) Acute kidney injury superimposed on chronic kidney disease Code(s): N17.9 - ACUTE KIDNEY FAILURE, UNSPECIFIED; N18.9 - CHRONIC KIDNEY DISEASE, UNSPECIFIED Status: Acute (2) Acute encephalopathy Code(s): G93.40 - ENCEPHALOPATHY, UNSPECIFIED Status: Acute (3) Dyslipidemia Code(s): E78.5 - HYPERLIPIDEMIA, UNSPECIFIED Status: Chronic (4) Hypertension Code(s): I10 - ESSENTIAL (PRIMARY) HYPERTENSION Status: Chronic (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 - RHEUMATOID VASCULITIS WITH RHEUMATOID ARTHRITIS OF [facility] SITE Status: Chronic (6) Hypokalemia Code(s): E87.6 - HYPOKALEMIA Status: Acute - Plan Plan: 73-year-old relatively healthy female previously, admitted for acute decompensation and rapid decline: Acute encephalopathy S/P fall w/ head trauma 1 month ago - DDx of Etiology includes: UTI, volume depletion, metabolic changes such as Uremia since BUN is high or thyroid problems, hydrocephalus given worsening urinary incontinence, vascular dementia, stroke, neoplasm although not within the brain as head CT was negative for intraparenchymal lesions. Of particular concern are GI cancers given melena. - CT head showing chronic changes - Neuro consulted, appreciate recs - Routine neuro checks FELICIANO on CKD, with Uremia - Cr 2.51 on admission. Baseline appears to be ~1.0. - BUN 69. BUN/Cr = 27. Points more towards prerenal azotemia vs. ATN. Also could be related to the GI bleed of this patient. - Fluid resuscitate w/ NS. - If BUN does not improve with respiratory measures, we will possibly need to consider dialysis. Difficult to assess asterixis in this pt as she was weak and not really able to lift her arms to follow commands. - Nephro consulted, Dr. Ferrer, appreciate recs. UTI CXR indicative of PNA, aspiration vs. infiltrate, vs. atelectasis - treating w/ rocephin, day 2. Will cover common UTI and PNA pathogens - PT/OT/Speech eval and treat - WBC elevated w/ left shift - UA w/ large amounts of blood, >50 per hpf RBC, 100 protein, and 2+ bacteria - urine culture pending. GI bleeding in setting of known gastric ulcer Normocytic anemia - Hgb appears decreased from baseline - FOBT collected and pending - Consulted GI, appreciate recs - May consider repeat colonoscopy as outpatient. Do not believe pt is acutely and actively bleeding at this time. - Consider uremic bleeding, which can present cutaneously or as GI bleeding, in pt's suffering from uremia. - Originially considered obtaining CT scan of abd/pelvis w/ and w/o oral and IV contrast to look for malignancy, however we will wait on nephro recs regarding the uremia Hypokalemia Hypochloremia - replaced orally and IV, monitor - Magnesium, phosphorus WNL Rheumatoid vasculitis - hold meloxicam - hold other home nephrotoxic medications: ramipril, HCTZ HTN HLD - Give statin - hold HCTZ, give bisoprolol-hctz Code: FULL VTE PPx: heparin 5000 SC TID GI PPx: famotidine bid Fluids: NS 125mL/hr Paula Robert MD PGY1 Disposition/LOS: Admit to stroke inpatient. LOS > 48H anticipated
[2019-03-31 06:03] LABS: #Basophils 0.1 thou/uL (0.0-0.2); #Eosinphils 0.4 thou/uL (0.0-0.7); #Monocytes 0.5 thou/uL (0.11-0.59); #Neutrophils 10.2 thou/uL (1.40-6.50); %Basophils 0.4 % (0.0-1.0); %Eosinophils 3.4 % (0.0-10.0); %Lymphocytes 8.3 % (21.0-51.0); %Monocytes 4.4 % (0.0-10.0); %Neutrophils 83.5 % (42.0-75.0); Hemoglobin 8.8 g/dL (12.0-16.0); Mean Corpuscular HGB CONC 33.3 g/dL (32.0-36.0); Mean Corpuscular Hemoglobin 27.2 pg (27.0-31.0); Mean Corpuscular Volume 81.8 fL (78.0-98.0); Mean Platelet Volume 7.4 fL (7.4-10.4); Platelet Count 325 thou/uL (130-400); RBC Distribution Width 14.3 % (11.5-14.5); Red Blood Cell (RBC) Count 3.25 mill/uL (4.20-5.40); White Blood Cell (WBC) Count 12.2 thou/uL (4.8-10.8)
[2019-03-31 06:25] LABS: Anion Gap 13 mmol/L (10-20); BUN (Urea Nitrogen) 66 mg/dL (9.8-20.1); Calc. Creatinine Clearance 18 mL/min (70-130); Calcium 10.5 mg/dL (7.8-10.44); Carbon Dioxide 21 mmol/L (23-31); Chloride 101 mmol/L (98-107); Estimated GFR-MDRD 20; Glucose 98 mg/dL (83-110); Sodium 132 mmol/L (136-145)
[2019-03-31 06:30] LABS: Potassium 2.9 mmol/L (3.5-5.1)
[2019-03-31] MEDS ORDERED: Potassium Chloride 20 MEQ in Premix Bag 1 BAG IVPB SCH (07:45)
[2019-03-31] MEDS ORDERED: Potassium Chloride 20 MEQ TAB PO SCH (08:00)
[2019-03-31] MEDS: Bisoprolol Fumarate/HCTZ 10 mg/6.25 mg Tablet PO SCH (08:39)
[2019-03-31] MEDS: Megestrol Acetate 800 MG/20 ML UDCUP PO SCH (08:40)
[2019-03-31] MEDS: Potassium Chloride 20 MEQ TAB PO SCH ×2 (08:41→16:07)
[2019-03-31] MEDS: Heparin 5,000 UNITS/ML VIAL SC SCH ×3 (08:57→20:45)
[2019-03-31] MEDS ORDERED: Enoxaparin Sodium 30 MG/0.3 ML SYRINGE SC SCH (09:00)
[2019-03-31 11:23] LABS: Creatinine, Urine 62.21 mg/dL (47-110)
--- NOTE | 2019-03-31 11:23 | CON ---
DATE OF CONSULTATION: HISTORY OF PRESENT ILLNESS: Ms. Gannon is a 73-year-old white female, who was admitted due to failure to thrive. She has been having a decreased appetite and food intolerance for the last several days. Initial evaluations showed that she had an acute kidney injury. Empiric volume repletion is currently being given. Of interest, this patient has history of intake of meloxicam. We are now being consulted for her acute kidney injury. REVIEW OF SYSTEMS: The patient is positive for confusion. Positive for decreased appetite and decreased p.o. level. No chest pain. No shortness of breath. No gross hematuria. No dysuria. No frequency. No abdominal pain. Positive for joint pains. No syncopal episode. No fever or chills. MEDICATIONS: The patient is currently on the following medications. She is on: 1. Megestrol 400 mg p.o. daily. 2. Heparin 5000 units subcu t.i.d. 3. Famotidine 20 mg IV q.p.m. 4. Potassium chloride 40 mEq b.i.d. PAST MEDICAL HISTORY: 1. ? of recent GI bleed. 2. She has DJD, hyperlipidemia, and peripheral vascular disease. 3. History of rheumatoid arthritis. 4. Chronic kidney disease. 5. History of vasculitis. PAST SURGICAL HISTORY: Status post upper GI endoscopy, status post left BKA. Colonoscopy, bilateral tubal ligation, bilateral cataract surgery, and right total hip arthroplasty. SOCIAL HISTORY: The patient is , several children. Sedentary lifestyle. No smoking. No alcohol intake. FAMILY HISTORY: No family history of ESRD. ALLERGIES: NO KNOWN DRUG ALLERGIES. TRAUMA: None. IMMUNIZATIONS: Up-to-date. HOSPITALIZATIONS: Please see past medical history. PHYSICAL EXAMINATION: VITAL SIGNS: Blood pressure 128/72, heart rate 82, respiratory rate 18, temperature 98.6, and pulse ox 94%. GENERAL: Awake, alert, and comfortable. SKIN: Adequate turgor. HEENT: She has a slightly pale conjunctivae. Anicteric sclerae. NECK: No neck mass. No carotid bruits. No JVD. CHEST: No deformities. LUNGS: Clear breath sounds. HEART: Normal sinus rhythm. No murmurs. No gallops. No rubs. ABDOMEN: Globular, soft, and nontender. No masses. EXTREMITIES: No edema. Status post leg amputation, left BKA. LABORATORY DATA: Laboratories of March 31, 2019; white count 12.2, hemoglobin 8.8. Basic metabolic of March 31, 2019, was reviewed with a creatinine of 2.44, potassium 2.9. Sodium 132, BUN 66, calcium 10.5. Further review of this serum creatinine showed that on March 21, 2019; creatinine was 2.11. On December 29, 2018, creatinine was 1.1. Urinalysis of March 30, 2019; specific gravity 1.015, protein is 100, no pigmented granular cast, red cells greater than 50, and wbc is 0 to 3. ASSESSMENT AND PLAN: Acute kidney injury - consider hemodynamically-mediated renal dysfunction. The patient was on meloxicam as well as on hydrochlorothiazide. Initial urine sediment did not suggest acute tubular necrosis, but this does not rule out acute tubular necrosis, but I would suggest we continue empiric volume repletion with this patient. If no improvement, then we have considered a diagnosis of acute tubular necrosis. There is no indication for any dialytic intervention. I did suggest that we proceed with a urine sodium and urine creatinine. Renal imaging will be done if no significant improvement in the renal function. Thank you for the consult. We will continue to follow. Job ID: [id number]
[2019-03-31] MEDS: Sodium Chloride 0.9% 500 ML IV SCH ×2 (13:17→13:19)
[2019-03-31] MEDS: cefTRIAXone\\ROCEPHIN 1 GM in Sodium Chloride 0.9% 100 ML IVPB SCH (16:06)
[2019-03-31] MEDS: Simvastatin 20 MG TAB PO SCH (20:46)
[2019-03-31] MEDS: Pantoprazole 40 MG VIAL IVP SCH (20:47)
[2019-04-01] MEDS: Sodium Chloride 0.9% 1,000 ML IV SCH ×2 (02:57→08:48)
[2019-04-01 04:39] LABS: #Eosinphils 0.4 thou/uL (0.0-0.7); #Lymphocytes 0.9 thou/uL (1.20-3.40); #Monocytes 0.5 thou/uL (0.11-0.59); #Neutrophils 9.6 thou/uL (1.40-6.50); %Basophils 0.3 % (0.0-1.0); %Eosinophils 3.2 % (0.0-10.0); %Lymphocytes 7.7 % (21.0-51.0); %Neutrophils 84.9 % (42.0-75.0); Hemoglobin 7.7 g/dL (12.0-16.0); Mean Corpuscular HGB CONC 33.3 g/dL (32.0-36.0); Mean Corpuscular Hemoglobin 26.8 pg (27.0-31.0); Mean Corpuscular Volume 80.7 fL (78.0-98.0); Mean Platelet Volume 7.3 fL (7.4-10.4); Platelet Count 282 thou/uL (130-400); RBC Distribution Width 14.4 % (11.5-14.5); Red Blood Cell (RBC) Count 2.86 mill/uL (4.20-5.40); White Blood Cell (WBC) Count 11.3 thou/uL (4.8-10.8)
[2019-04-01 05:11] LABS: ALT (SGPT) 12 U/L (8-55); AST (SGOT) 15 U/L (5-34); Albumin 2.4 g/dL (3.4-4.8); Alkaline Phosphatase 141 U/L (40-110); Anion Gap 11 mmol/L (10-20); BUN (Urea Nitrogen) 54 mg/dL (9.8-20.1); Bilirubin, Total 0.3 mg/dL (0.2-1.2); Calc. Creatinine Clearance 20 mL/min (70-130); Calcium 9.5 mg/dL (7.8-10.44); Carbon Dioxide 17 mmol/L (23-31); Chloride 111 mmol/L (98-107); Estimated GFR-MDRD 22; Globulin 2.8 g/dL (2.4-3.5); Glucose 107 mg/dL (83-110); Iron 22 ug/dL (50-170); Iron Binding Capacity, Total 109 mcg/dL (265-497); Magnesium 1.7 mg/dL (1.6-2.6); Phosphorus 2.5 mg/dL (2.3-4.7); Protein, Total 5.2 g/dL (6.0-8.3); Sodium 135 mmol/L (136-145)
--- NOTE | 2019-04-01 05:55 | PDOC.FM ---
- Subjective Subjective: Pt is sleepy this morning. She is wanting to sleep and not talk too much. Denies pain. VSS. No acute events overnight. - Objective MAR Reviewed: Yes Vital Signs & Weight: Vital Signs (12 hours) Temp Pulse Resp BP Pulse Ox 04/01/19 03:15 99.2 F 82 16 131/74 95 03/31/19 23:20 98.6 F 88 16 140/67 99 03/31/19 20:00 98.2 F 76 14 128/72 94 L Weight Admit Weight 55.111 kg Weight 55.111 kg I&O: 03/30/19 03/31/19 04/01/19 06:59 06:59 06:59 Intake Total 1550 Output Total 510 Balance 1040 Result Diagrams: 04/01/19 04:19 04/01/19 04:19 Phys Exam - Physical Examination Constitutional: NAD (appears pale) Respiratory: no wheezing, clear to auscultation bilateral Cardiovascular: RRR, no significant murmur Gastrointestinal: soft (guarding), positive bowel sounds Musculoskeletal: no edema, pulses present Skin: no rash Dx/Plan (1) Acute kidney injury superimposed on chronic kidney disease Code(s): N17.9 - ACUTE KIDNEY FAILURE, UNSPECIFIED; N18.9 - CHRONIC KIDNEY DISEASE, UNSPECIFIED Status: Acute (2) Acute encephalopathy Code(s): G93.40 - ENCEPHALOPATHY, UNSPECIFIED Status: Acute (3) Dyslipidemia Code(s): E78.5 - HYPERLIPIDEMIA, UNSPECIFIED Status: Chronic (4) Hypertension Code(s): I10 - ESSENTIAL (PRIMARY) HYPERTENSION Status: Chronic (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 - RHEUMATOID VASCULITIS WITH RHEUMATOID ARTHRITIS OF [facility] SITE Status: Chronic (6) Hypokalemia Code(s): E87.6 - HYPOKALEMIA Status: Acute - Plan Plan: 73-year-old relatively healthy female previously, admitted for acute decompensation and rapid decline: Acute toxic metabolic encephalopathy S/P fall w/ head trauma 1 month ago - DDx of Etiology includes: UTI, volume depletion, metabolic changes such as Uremia since BUN is high or thyroid problems, hydrocephalus given worsening urinary incontinence, vascular dementia, stroke, neoplasm although not within the brain as head CT was negative for intraparenchymal lesions. Of particular concern are GI cancers given melena. - CT head showing chronic changes - Neuro consulted, appreciate recs - Routine neuro checks FLEICIANO on CKD, with Uremia Intrinsic renal disease, possibly ATN vs other etiology - Cr 2.51 on admission. Baseline appears to be ~1.0. - BUN 69. BUN/Cr = 27. may indicate pre-renal,. Also could be related to the GI bleed of this patient. - FeNa 1.6%, this points towards intrinsic etiology so ATN is favored. - Fluid resuscitate w/ NS. - FeNa 1.6% pointing towards intrinsic renal etiology. - B/L renal U/S ordered this AM. - Nephro consulted, Dr. Ferrer, appreciate recs. UTI CXR indicative of PNA, aspiration vs. infiltrate, vs. atelectasis - treating w/ rocephin, day 3. Will cover common UTI and PNA pathogens - PT/OT/Speech eval and treat - UA w/ large amounts of blood, >50 per hpf RBC, 100 protein, and 2+ bacteria - urine culture pending. GI bleeding in setting of known gastric ulcer Normocytic anemia - FOBT negative - Hgb has worsened. Will type and screen. Could be secondary to rehydrating pt, will transfuse if below 7.0. - Consulted GI, appreciate recs - May consider repeat colonoscopy as outpatient. - Consider uremic bleeding, which can present cutaneously or as GI bleeding - Originially considered obtaining CT scan of abd/pelvis w/ and w/o oral and IV contrast to look for malignancy, however we will wait on kidney function improvement. Occult malignancy is not ruled out Hypokalemia Hypochloremia - replaced orally and IV, monitor - Magnesium, phosphorus WNL Rheumatoid vasculitis - hold meloxicam - hold other home nephrotoxic medications: ramipril, HCTZ HTN HLD - Give statin - hold HCTZ, give bisoprolol-hctz Code: FULL VTE PPx: HELD heparin 5000 SC TID in setting of decreased hgb GI PPx: pantoprazole bid Fluids: NS 175 mL/hr Paula Robert MD PGY1 Disposition/LOS: Admit to stroke inpatient. LOS > 48H anticipated Addendum - Attending - Attending Attestation Date/Time: 04/01/19 [id number] I personally evaluated the patient and discussed the management with Dr. Robert I agree with the History, Examination, Assessment and Plan documented above with any addition or exceptions noted below - Patient denies any complaints. Per family still confused. Afebrile VSS A/P: 1) Failure to thrive- uncertain etiology; continue PPI for gastric ulcer. 2) FELICIANO- appreciate nephrology assistance; fluids changed to isotonic bicarb; GALDINO/ANCA pending.
[2019-04-01] MEDS: Potassium Chloride 20 MEQ TAB PO SCH ×2 (08:46→17:50)
[2019-04-01] MEDS: Megestrol Acetate 800 MG/20 ML UDCUP PO SCH (08:46)
--- NOTE | 2019-04-01 08:46 | ULT ---
Renal sonogram HISTORY: Acute renal failure. FINDINGS: Right kidney measures up to 10.3 cm length and the left 11.3 cm. Each has a normal sonograp hic appearance without evidence of mass, stone, or hydronephrosis. Urinary bladder is unremarkable. IMPRESSION: Normal renal sonogram. No evidence of obstruction.
[2019-04-01] MEDS: Bisoprolol Fumarate/HCTZ 10 mg/6.25 mg Tablet PO SCH (08:47)
[2019-04-01] MEDS: Pantoprazole 40 MG VIAL IVP SCH ×2 (08:48→21:10)
[2019-04-01] MEDS: SODIUM CHLORIDE IV SCH ×2 (10:58→21:34)
[2019-04-01] MEDS: SODIUM BICARBONATE IV SCH ×2 (10:58→21:34)
[2019-04-01] MEDS: STERILE WATER IV SCH ×2 (10:58→21:34)
--- NOTE | 2019-04-01 11:04 | PRG ---
DATE OF SERVICE: 04/01/2019 SERVICE: Renal Medicine. SUBJECTIVE: Ms. Gannon is a 73-year-old white female, who was admitted due to failure to thrive. She has had decreased appetite, has not been eating. Initially, we evaluated the patient and had also an acute kidney injury. Due to the decreased p.o. intake and because of the intake of meloxicam and hydrochlorothiazide, we felt that this may simply be a hemodynamically-mediated renal dysfunction. I did review her urinalysis, it did show protein and red cells. My concern is that whether this patient may have underlying vasculitis. There was an old note that suggested she may have some rheumatoid vasculitis to explain those nonhealing wounds. An GALDINO and ANCA will be done today. We are continuing her IV hydration. There is slight improvement in the renal dysfunction. No new complaints today. She is mentating better today. OBJECTIVE: VITAL SIGNS: Blood pressure is noted at 155/82 with a heart rate of 82, respiratory rate 18, temperature 98.2, and pulse ox 94%. GENERAL: Awake, alert, comfortable, not in distress. SKIN: Adequate turgor. HEENT: She has a slightly pale conjunctivae. Anicteric sclerae. NECK: No neck mass. No carotid bruits. No JVD. CHEST: No deformities. LUNGS: Clear breath sounds. HEART: Normal sinus rhythm. No murmur. No gallops. No rubs. ABDOMEN: Globular, soft, nontender. No masses. EXTREMITIES: No edema. No deformities. MEDICATIONS: Medications of April 01, 2019, were reviewed. LABORATORY DATA: Laboratories of April 01, 2019; white count 12.2, hemoglobin 7.7. Sodium 135, potassium 4, chloride 111, carbon dioxide 17, BUN 54, creatinine 2.24, glucose 107, ALT 12, AST 15, alkaline phosphatase 141, albumin is 2.4. Further review of her serum creatinine shows the following: March 31, 2019, creatinine was 2.44; March 30, 2019, creatinine 2.51; December 29, 2018, creatinine was 1.1. ASSESSMENT AND PLAN: 1. Acute kidney injury, consider hemodynamically-mediated renal dysfunction. Continue to hold off hydrochlorothiazide and meloxicam. Continue IV hydration. Due to the metabolic acidosis, we will change current IVF to an isotonic bicarbonate. We will run this at 125 mL an hour. 2. Microscopic hematuria/proteinuria. We will check for GALDINO and ANCA. We need to rule out possibility of a vasculitis with this patient. Overall, agree with current management. 3. We will recheck basic metabolic panel and CBC in a.m. Job ID: [id number]
--- NOTE | 2019-04-01 13:34 | CON ---
DATE OF CONSULTATION: 03/31/2019 REASON FOR CONSULTATION: Failure to thrive. HISTORY OF PRESENT ILLNESS: Ms. Gannon is a 73-year-old female, who was admitted to the hospital yesterday from the emergency room. Apparently, she came in, brought by her spouse because she has not been eating for about 2 weeks and they talked to her physician Dr. Mazariegos who recommended she should probably come in. Apparently , she had a fall about a month ago, and complains of headache since that fall. CAT scan in the emergency room showed no evidence of subdural hematoma or acute intracranial processes. The patient really has not been eating very well either. Apparently, she saw Dr. Hernandez about a week ago and had an upper endoscopy that was not at this facility, She and the records reprot she was diagnosed with a gastric ulcer. There are some reports that she was taking heavy doses of NSAIDs including meloxicam before that, may still be taking that now. The patient is unsure of her medications. She has been admitted to the hospital. She had a white count of 13, hemoglobin at 10. These have come down to 12.2 and 8.8 with hydration. There have been no overt signs of bleeding. Her BUN and creatinine are 66 and 2.4. They were 69 and 2.5 yesterday. She is receiving some hydration. The nurse reports to me she has had a Hemoccult, which was negative. She is presently receiving an H2 peggy. She denies dysuria, frequency, urgency, or nausea or vomiting. She states she just does not have an appetite. She asks if she can go home to see her dog. She has been seen by Neurology, does not feel that she has any acute neurologic process. REVIEW OF SYSTEMS: She denies any dysphagia or odynophagia. She denies any hematemesis or hematochezia. She is not aware of prior ulcers. She has been taking NSAIDs for history of arthritis. She has also been seen by Dr. Ferrer for renal failure as he thinks this is prerenal. The patient reports that she has lost between 10 to 25 pounds. Admission H and P notes the family has noticed difficulty with focusing and difficulty completing sentences. Apparently, she had a dark stool this past week. Again here, the nurses report no overt bleeding. PAST MEDICAL HISTORY: rheumatoid disease, p anca vasculitis , hypertension, chronic kidney disease, gastric ulcer, recently diagnosed urinary incontinence, chronic anemia. Apparently, she has had a colonoscopy 6 or 7 years ago. 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 Recent EGD FAMILY HISTORY: Father had prostate cancer. Mother had breast cancer, dementia. Uncle had diabetes. MEDICATIONS: At home; 1. Hydrochlorothiazide. 2. Mobic. 3. Simvastatin. 4. Ambien. 5. Benadryl. 6. Bisoprolol. 7. Folic acid. 8. Prednisone 9. Gabapentin. I have talked with Dr. Hernandez. He states he prescribed her PPI after the ulcer was found, but that is not apparent in her list of medicines. Medications presently; 1. Tylenol. 2. Dulcolax. 3. Bisoprolol/hydrochlorothiazide. 4. Ceftriaxone. 5. Pepcid. 6. Heparin subcu t.i.d. 7. Megace. 8. Zofran. 9. K-Dur. 10. Sodium chloride 175/hour. SOCIAL HISTORY: No alcohol, drugs, or tobacco. ALLERGIES: NONE KNOWN. PHYSICAL EXAMINATION: GENERAL: The patient is very pale. She has a flat affect. She is resting comfortably in bed. HEENT: She is nonicteric. Oropharynx was without lesions. NECK: Supple. No adenopathy. LUNGS: Clear. HEART: Regular rate and rhythm without clicks or murmurs. ABDOMEN: Soft and nontender. There is no palpable hepatosplenomegaly. EXTREMITIES: No clubbing, cyanosis, or edema. No adenopathy is palpated in the axillary area or inguinal regions. VITAL SIGNS: Temperature is 97.5, pulse 79, blood pressure 166/82. LABORATORY STUDIES: Stool is Hemoccult negative. CBC as per admit note. Sodium 132, potassium 2.9, BUN and creatinine are 66 and 2.44. ASSESSMENT: 1. Failure to thrive, unclear etiology. 2. Recent finding of ulcer in the stomach. It is probably NSAID related, although I have no records. Her admission medications indicates she still has an NSAID and her admission medications do not indicate she has been taking a PPI. The patient is unsure what she has been taking. Dr. Hernandez notes he prescribed her a PPI when the ulcer was found. 3. History of some black stools, possibly on Wednesday. The patient is on a heparin subcu and she is on an H2 peggy. This is probably inadequate. She needs to be on a PPI. 4. Renal failure. It is unclear if this is from prerenal azotemia or her vasculitis. 5. History of rheumatoid disease. 6. History of colonoscopy 6 to 7 years ago. She does not need another colonoscopy at this time. She is too ill for that. RECOMMENDATIONS: 1. Change to a PPI IV q.12. 2. Adequately resuscitate with fluids and replace potassium. 3. If she shows any signs of bleeding, I would stop the heparin and move to more of a PlexiPulse for DVT prophylaxis. 4. When her renal function improves consider a CAT scan of the abdomen and pelvis to rule out other underlying malignancy if she is not better. She does appear quite ill. 5. Dr. Hernandez can follow up with the patient in outpatient on Wednesday when he returns. If I can be of further assistance over the weekend, please do not hesitate to contact me. 6. She has a history of Rheumatoid disease and P-ANCA vasculitis, a flair in either condition could cause "failure to thrive". Job ID: [id number] MTDD
[2019-04-01] MEDS: cefTRIAXone\\ROCEPHIN 1 GM in Sodium Chloride 0.9% 100 ML IVPB SCH (15:09)
[2019-04-01] MEDS: Ferrous Sulfate 325 MG TAB PO SCH (17:50)
[2019-04-01] MEDS: Simvastatin 20 MG TAB PO SCH (21:09)
[2019-04-02 04:38] LABS: Anion Gap 12 mmol/L (10-20); BUN (Urea Nitrogen) 43 mg/dL (9.8-20.1); Calc. Creatinine Clearance 21 mL/min (70-130); Calcium 9.4 mg/dL (7.8-10.44); Carbon Dioxide 21 mmol/L (23-31); Chloride 107 mmol/L (98-107); Estimated GFR-MDRD 22; Glucose 97 mg/dL (83-110); Potassium 4.2 mmol/L (3.5-5.1); Sodium 136 mmol/L (136-145)
[2019-04-02 04:46] LABS: #Eosinphils 0.4 thou/uL (0.0-0.7); #Monocytes 0.5 thou/uL (0.11-0.59); #Neutrophils 10.1 thou/uL (1.40-6.50); %Basophils 0.2 % (0.0-1.0); %Eosinophils 3.7 % (0.0-10.0); %Lymphocytes 8.2 % (21.0-51.0); %Monocytes 3.7 % (0.0-10.0); %Neutrophils 84.2 % (42.0-75.0); Mean Corpuscular HGB CONC 32.5 g/dL (32.0-36.0); Mean Corpuscular Hemoglobin 27.1 pg (27.0-31.0); Mean Corpuscular Volume 83.5 fL (78.0-98.0); Mean Platelet Volume 7.2 fL (7.4-10.4); Platelet Count 291 thou/uL (130-400); RBC Distribution Width 14.9 % (11.5-14.5); Red Blood Cell (RBC) Count 2.95 mill/uL (4.20-5.40)
--- NOTE | 2019-04-02 05:47 | PDOC.FM ---
- Subjective Subjective: Pt confused this AM. Responses to questions logical for some questions. Denies pain. Distracted and follows commands with much prompting. AxO x1, below baseline. Per nursing was refusing medications last night. - Objective MAR Reviewed: Yes Vital Signs & Weight: Vital Signs (12 hours) Temp Pulse Resp BP 04/02/19 04:00 98.6 F 80 20 140/74 04/02/19 00:00 97.9 F 79 14 163/87 H 04/01/19 20:00 97.7 F 78 14 136/69 Weight Admit Weight 55.111 kg Weight 55.111 kg I&O: 03/31/19 04/01/19 04/02/19 06:59 06:59 06:59 Intake Total 1550 884 Output Total 510 425 Balance 1040 459 Result Diagrams: 04/02/19 03:53 04/02/19 03:53 Phys Exam - Physical Examination Constitutional: NAD Respiratory: no wheezing, clear to auscultation bilateral Cardiovascular: RRR, no significant murmur Gastrointestinal: soft, non-tender, positive bowel sounds (involuntary guarding , flexes w/ palpation) Musculoskeletal: no edema Skin: no rash Dx/Plan (1) Acute kidney injury superimposed on chronic kidney disease Code(s): N17.9 - ACUTE KIDNEY FAILURE, UNSPECIFIED; N18.9 - CHRONIC KIDNEY DISEASE, UNSPECIFIED Status: Acute (2) Acute encephalopathy Code(s): G93.40 - ENCEPHALOPATHY, UNSPECIFIED Status: Acute (3) Dyslipidemia Code(s): E78.5 - HYPERLIPIDEMIA, UNSPECIFIED Status: Chronic (4) Hypertension Code(s): I10 - ESSENTIAL (PRIMARY) HYPERTENSION Status: Chronic (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 However, pt is also anemic and has hx of rheumatoid vasculitis. - CT head showing chronic changes - Neuro consulted, appreciate recs - Routine neuro checks FELICIANO on CKD, with Uremia Intrinsic renal disease, possibly ATN vs other etiology - Slowly improving. Baseline appears to be ~1.0. - FeNa 1.6%, this points towards intrinsic etiology so ATN is favored. - Fluid resuscitate w/ Bicarb per nephro. - B/L renal U/S negative. GALDINO, ANCA pending. - Nephro consulted, Dr. Ferrer, appreciate recs. UTI CXR indicative of PNA, aspiration vs. infiltrate, vs. atelectasis - treating w/ rocephin, day 4. Will cover common UTI and PNA pathogens - PT/OT/Speech eval and treat - Urine culture negative at 48 hours. - Consider repeat CXR today. GI bleeding in setting of known gastric ulcer Normocytic anemia - FOBT negative - Hgb stable - Consulted GI, appreciate recs - May consider repeat colonoscopy as outpatient. - Consider uremic bleeding, which can present cutaneously or as GI bleeding - Originially considered obtaining CT scan of abd/pelvis w/ and w/o oral and IV contrast to look for malignancy, however we will wait on kidney function improvement. Occult malignancy is not ruled out Hypokalemia Hypochloremia - replaced orally and IV, monitor - Magnesium, phosphorus WNL Rheumatoid vasculitis - hold meloxicam - hold other home nephrotoxic medications: ramipril, HCTZ HTN HLD - Give statin - hold HCTZ, give bisoprolol-hctz Code: FULL VTE PPx: HELD heparin 5000 SC TID in setting of decreased hgb GI PPx: pantoprazole bid Fluids: Bicarb @ 125 ml/hr Diet: regular, dietary consulted for decreased PO intake, continue mechanical soft and supplementation with megace Paula Robert MD PGY1 Disposition/LOS: Admit to stroke inpatient. LOS > 48H anticipated Addendum - Attending - Attending Attestation Date/Time: 04/02/19 1048 I personally evaluated the patient and discussed the management with Dr. Robert I agree with the History, Examination, Assessment and Plan documented above with any addition or exceptions noted below - Patinet A&O x1; Continued poor po intake. Afebrile VSS. A/P: 1) FELICIANO on CKD- slowly trending downward; continue IVF and continue to monitor, 2) Anorexia/FTT- uncertain etiology; unable to CT scan abdomen due to Cr. 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
[2019-04-02] MEDS: SODIUM BICARBONATE IV SCH ×3 (06:02→22:26)
[2019-04-02] MEDS: SODIUM CHLORIDE IV SCH ×3 (06:02→22:26)
[2019-04-02] MEDS: STERILE WATER IV SCH ×3 (06:02→22:26)
[2019-04-02] MEDS: Megestrol Acetate 800 MG/20 ML UDCUP PO SCH (09:32)
[2019-04-02] MEDS: Potassium Chloride 20 MEQ TAB PO SCH ×2 (09:33→17:00)
[2019-04-02] MEDS: Pantoprazole 40 MG VIAL IVP SCH ×3 (09:33→21:52)
[2019-04-02] MEDS: Bisoprolol Fumarate/HCTZ 10 mg/6.25 mg Tablet PO SCH (09:33)
[2019-04-02] MEDS: Ferrous Sulfate 325 MG TAB PO SCH ×2 (09:34→17:00)
--- NOTE | 2019-04-02 10:39 | PRG ---
DATE OF SERVICE: 04/02/2019 SUBJECTIVE: Ms. Gannon is a 73-year-old white female, followed up for her acute kidney injury. She was taking meloxicam at one time, and hydrochlorothiazide has been discontinued. Empiric volume repletion is being given. The patient is still unchanged. She still remains lethargic. A vasculitis workup has been done. GALDINO and ANCA have been sent. No other new complaints. The patient still has decreased p.o. intake and decreased appetite. OBJECTIVE: VITAL SIGNS: Blood pressure 150/86, heart rate 80, respiratory rate 16, temperature 99.2, and pulse ox 96%. GENERAL: Noted to be awake, lethargic. Can follow simple commands. SKIN: Decreased turgor. HEENT: Slightly pale conjunctivae. Anicteric sclerae. No neck mass. No carotid bruits. No JVD. CHEST: No deformities. LUNGS: Clear breath sounds. HEART: Normal sinus rhythm. No murmur. No gallops. No rubs. ABDOMEN: Globular, soft, nontender. No masses. EXTREMITIES: No edema. No deformities. MEDICATIONS: Medications of April 02, 2019, were reviewed. LABORATORY DATA: On April 02, 2019, white count 12, hemoglobin 8, sodium 136, potassium 4.2, chloride 107, carbon dioxide 21, BUN 43, creatinine 2.17, calcium 9.4. Vitamin B12 greater than 2000. GALDINO and ANCA are currently pending. ASSESSMENT AND PLAN: Acute kidney injury, presumptive hemodynamically mediated dysfunction. Her meloxicam and diuretics have been discontinued. She was recently taking bisoprolol with hydrochlorothiazide. The bisoprolol will now be converted to a pure bisoprolol without hydrochlorothiazide. Continue current IV hydration. Continue normal saline at 125 mL/hour. We are awaiting the results of GALDINO and ANCA. If the ANCA is positive, this patient will entail a renal biopsy. For the moment, continue supportive care. Recheck basic metabolic panel and CBC in a.m. Job ID: [id number]
--- NOTE | 2019-04-02 18:42 | PRG ---
DATE OF SERVICE: 04/02/2019 SUBJECTIVE: Ms. Gannon is without complaints. She has a very flat affect. Two family members are with her, confirmed that she was found to have an ulcer. She was taking her medicines, but only has had medicines for one or two days before she coming to the hospital here. She is eating a little bit, but not much. According to the nurses, she has been sleeping a lot during the day. PHYSICAL EXAMINATION: VITAL SIGNS: Temperature 98.6, pulse 78, blood pressure 152/86. GENERAL: She has a sallow appearing colored skin. She has a very flat affect. LUNGS: Clear. ABDOMEN: Soft, nontender. EXTREMITIES: Reveal no edema. LABORATORY DATA: White count 12, hemoglobin 8, platelet count 291. Iron 28, TIBC 109. Liver function tests normal except for alkaline phosphatase 141, globulin 2.8, albumin 2.4, total protein 5.2. B12 and folate normal. Today creatinine has come down to 217 from 251 on admission. ASSESSMENT: Failure to thrive, unclear etiology. Sedimentation rate of 94. Reasonable to consider further evaluation with CAT scan abdomen and pelvis if her renal function improve. She has had a negative chest x-ray. Normal screening mammogram in 2019. TSH normal, 12/29/2018. She is undergoing evaluation to vasculitis. She has a very high sedimentation rate. Hx of gastric ulcer biopsies, no malignancy and H pylori. RECOMMENDATIONS: Continue PPI. Await further rheumatologic workup as Dr. Ferrer has not started. Dr. Hernandez will return tomorrow to resume GI care. Job ID: [id number] MTDD
[2019-04-02] MEDS: Heparin 5,000 UNITS/ML VIAL SC SCH ×2 (21:37→21:48)
[2019-04-02] MEDS: Simvastatin 20 MG TAB PO SCH ×2 (21:37→21:48)
[2019-04-03 05:18] LABS: #Eosinphils 0.5 thou/uL (0.0-0.7); #Lymphocytes 1.2 thou/uL (1.20-3.40); #Monocytes 0.6 thou/uL (0.11-0.59); #Neutrophils 10.3 thou/uL (1.40-6.50); %Basophils 0.2 % (0.0-1.0); %Eosinophils 4.1 % (0.0-10.0); %Lymphocytes 9.6 % (21.0-51.0); %Monocytes 4.4 % (0.0-10.0); %Neutrophils 81.7 % (42.0-75.0); Hemoglobin 7.7 g/dL (12.0-16.0); Mean Corpuscular HGB CONC 32.9 g/dL (32.0-36.0); Mean Corpuscular Hemoglobin 26.7 pg (27.0-31.0); Mean Corpuscular Volume 81.3 fL (78.0-98.0); Mean Platelet Volume 7.3 fL (7.4-10.4); Platelet Count 292 thou/uL (130-400); RBC Distribution Width 14.9 % (11.5-14.5); Red Blood Cell (RBC) Count 2.86 mill/uL (4.20-5.40); White Blood Cell (WBC) Count 12.6 thou/uL (4.8-10.8)
[2019-04-03 05:44] LABS: Anion Gap 12 mmol/L (10-20); BUN (Urea Nitrogen) 38 mg/dL (9.8-20.1); Calc. Creatinine Clearance 20 mL/min (70-130); Calcium 8.8 mg/dL (7.8-10.44); Carbon Dioxide 25 mmol/L (23-31); Chloride 103 mmol/L (98-107); Estimated GFR-MDRD 21; Glucose 83 mg/dL (83-110); Potassium 4.3 mmol/L (3.5-5.1); Sodium 136 mmol/L (136-145)
[2019-04-03] MEDS: SODIUM CHLORIDE IV SCH ×3 (05:55→16:51)
[2019-04-03] MEDS: STERILE WATER IV SCH ×3 (05:55→16:51)
[2019-04-03] MEDS: SODIUM BICARBONATE IV SCH ×3 (05:55→16:51)
--- NOTE | 2019-04-03 06:32 | PDOC.FM ---
- Subjective Subjective: Pt is speaking in full fluent sentences this AM and responding appropriately to questions, which is improved from yesterday. Unfortunately, she is AxO x1. She thinks she is in [facility] in [place] and that the year is 1968. Overnight nursing reports pt was refusing her medications and was more confused than her usual self. Otherwise, pt denies pain. Reports her appetite is better. Denies nausea. - Objective MAR Reviewed: Yes Vital Signs & Weight: Vital Signs (12 hours) Temp Pulse Resp BP Pulse Ox 04/03/19 03:03 99.0 F 88 20 152/86 H 93 L 04/02/19 23:29 98.9 F 85 22 H 156/82 H 95 04/02/19 19:23 98.2 F 84 24 H 142/80 H 95 Weight Admit Weight 55.111 kg Weight 55.111 kg I&O: 04/01/19 04/02/19 04/03/19 06:59 06:59 06:59 Intake Total 1550 1948 2285 Output Total 510 1375 1475 Balance 1040 573 810 Result Diagrams: 04/03/19 04:43 04/03/19 04:43 Phys Exam - Physical Examination Constitutional: NAD HEENT: PERRLA Respiratory: no wheezing, clear to auscultation bilateral Cardiovascular: RRR, no significant murmur Gastrointestinal: soft, non-tender, no distention, positive bowel sounds Musculoskeletal: no edema Skin: no rash Dx/Plan (1) Acute kidney injury superimposed on chronic kidney disease Code(s): N17.9 - ACUTE KIDNEY FAILURE, UNSPECIFIED; N18.9 - CHRONIC KIDNEY DISEASE, UNSPECIFIED Status: Acute (2) Acute encephalopathy Code(s): G93.40 - ENCEPHALOPATHY, UNSPECIFIED Status: Acute (3) Dyslipidemia Code(s): E78.5 - HYPERLIPIDEMIA, UNSPECIFIED Status: Chronic (4) Hypertension Code(s): I10 - ESSENTIAL (PRIMARY) HYPERTENSION Status: Chronic (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 Hx of rheumatoid vasculitis. - CT head showing chronic changes - Neuro consulted, appreciate recs - Routine neuro checks FELICIANO on CKD, with Uremia Intrinsic renal disease, possibly ATN vs other etiology - Slowly improving. Baseline appears to be ~1.0. - FeNa 1.6%, this points towards intrinsic etiology so ATN is favored. - Fluid resuscitate w/ Bicarb per nephro. - B/L renal U/S negative. GALDINO, ANCA, RF pending. - Nephro consulted, Dr. Ferrer, appreciate recs. Presumptive UTI w/ negative urine culture CXR indicative of PNA, aspiration vs. infiltrate, vs. atelectasis - Rocephin x3 days, discontinued. Urine culture neg at 48 hours - PT/OT/Speech eval and treat GI bleeding in setting of known gastric ulcer Normocytic anemia - FOBT negative - Hgb stable - Consulted GI, appreciate recs - May consider repeat colonoscopy as outpatient. - Consider uremic bleeding, which can present cutaneously or as GI bleeding - Originially considered obtaining CT scan of abd/pelvis w/ and w/o oral and IV contrast to look for malignancy, however we will wait on kidney function improvement. Occult malignancy is not ruled out Hypokalemia Hypochloremia Hypomagnesemia - replaced. Monitor Rheumatoid vasculitis - hold meloxicam - hold other home nephrotoxic medications: ramipril, HCTZ HTN HLD - Give statin - hold HCTZ, give bisoprolol only Code: FULL VTE PPx: heparin 5000 SC TID in setting of decreased hgb GI PPx: pantoprazole bid Fluids: Bicarb @ 125 ml/hr Diet: regular, dietary consulted for decreased PO intake, continue mechanical soft and supplementation with megace Paula Robert MD PGY1 Disposition/LOS: Admit to stroke inpatient. LOS > 48H anticipated
[2019-04-03] MEDS ORDERED: Magnesium 2 GM/50 ML 2 GM in Premix Bag 1 BAG IVPB SCH (08:45)
--- NOTE | 2019-04-03 09:49 | PRG ---
DATE OF SERVICE: 04/03/2019 SUBJECTIVE: Ms. Gannon is a 73-year-old white female, seen by the Renal Service for acute kidney injury. Initially, we felt that she may have a hemodynamically-mediated renal dysfunction. Despite IV hydration, creatinine has not gone back to a near normal level. Urinalysis showed protein and red cells. The possibility of underlying chronic glomerulonephritis remains with this patient. GALDINO and ANCA have been done but results are pending. No new complaints today. The patient still has decreased p.o. intake. OBJECTIVE: VITAL SIGNS: Blood pressure is 144/84, heart rate 86, respiratory rate 20, temperature 98.4, and pulse ox 93%. GENERAL: The patient is awake, confused, not in overt distress. SKIN: Adequate turgor. HEENT: She has slightly pale conjunctivae. Anicteric sclerae. NECK: No neck mass. No carotid bruits. No JVD. CHEST: No deformities. LUNGS: Clear breath sounds. HEART: Normal sinus rhythm. No murmur. No gallops. No rubs. ABDOMEN: Globular. Soft. Nontender. No masses. EXTREMITIES: No edema. No deformities. MEDICATIONS: Medications of April 03, 2019, was reviewed. LABORATORY DATA: April 03, 2019; white count 12.6, hemoglobin 7.7, sodium 136, potassium 4.3, chloride 103, carbon dioxide 25, BUN 38, creatinine 2.28, GFR 21 mL/minute, magnesium is 1.5, calcium 8.8. ASSESSMENT AND PLAN: 1. Acute kidney injury/chronic renal failure, superimposed prerenal azotemia. With underlying intrinsic renal problem, it could be underlying glomerulonephritis. Awaiting for results of GALDINO and ANCA. For the moment, continue supportive care. I do not see any indication for an emergent hemodialysis with this patient. 2. Anemia. P.r.n. blood transfusion. 3. I would suggest, we recheck basic metabolic panel and CBC in a.m. Job ID: [id number]
[2019-04-03] MEDS: Bisoprolol Fumarate 5 MG TAB PO SCH (10:20)
[2019-04-03] MEDS: Pantoprazole 40 MG VIAL IVP SCH ×2 (10:21→20:52)
[2019-04-03] MEDS: Potassium Chloride 20 MEQ TAB PO SCH ×2 (10:21→18:34)
[2019-04-03] MEDS: Heparin 5,000 UNITS/ML VIAL SC SCH ×2 (10:21→20:52)
[2019-04-03] MEDS: Ferrous Sulfate 325 MG TAB PO SCH ×2 (10:21→18:33)
[2019-04-03] MEDS: Megestrol Acetate 800 MG/20 ML UDCUP PO SCH (10:30)
--- NOTE | 2019-04-03 12:39 | PQF ---
CLINICAL DOCUMENTATION IMPROVEMENT CLARIFICATION FORM: ICD-10 Updated PLEASE DO AN ADDENDUM TO THE PROGRESS NOTE WITH ANY DOCUMENTATION UPDATES OR ADDITIONS AND CARRY THROUGH TO DC SUMMARY. THANK YOU. DATE: 04/03/19 ATTN: DR. HOUSE Please exercise your independent, professional judgment in responding to the clarification form. Clinical indicators are provided on the bottom of this form for your review Please check appropriate box(s): [ ] Encephalopathy: Type: [ ] Acute [ ] Subacute [ ] Chronic Etiology: [ ] Hypertensive [ ] Metabolic [ ] Toxic [ ] Hepatic with Coma [ ] Hepatic w/o Coma [ ] Hypoxic [ ] Septic [ ] Drug induced: [ ] Unspecified [ ] in the setting of underlying dementia [ ] Other (please specify) [ ] Transient Alteration of Awareness [ ] Other diagnosis [ ] Unable to determine In addition, please specify: Present on Admission (POA): [ ] Yes [ ] No [ ] Unable to determine For continuity of documentation, please document condition throughout progress notes and discharge summary. Thank You. CLINICAL INDICATORS - SIGNS / SYMPTOMS / LABS / RESULTS AND LOCATION IN EMR ER NOTE: "CONFUSION" H&P 03/30: "ACUTE ENCEPHALOPATHY" RISKS: UTI (H&P 03/30) RECENT HEAD TRAUMA (H&P 03/30) GI BLEEDING (H&P 03/30) TREATMENT: IV ROCEPHIN (ER 03/30) IV FLUIDS (04/01) BRAIN CT 03/30 [employer] Winform Viewer (This form is maintained as a part of the permanent medical record) 2014 [email or web address]. All Rights Reserved [email or web address] Office: [phone] [facility]
--- NOTE | 2019-04-03 13:11 | PQF ---
CLINICAL DOCUMENTATION IMPROVEMENT CLARIFICATION FORM: ICD-10 Updated PLEASE DO AN ADDENDUM TO THE PROGRESS NOTE WITH ANY DOCUMENTATION UPDATES OR ADDITIONS AND CARRY THROUGH TO DC SUMMARY. THANK YOU. Date: 04/03/19 ATTN: DR. HOUSE Please exercise your independent, professional judgment in responding to the clarification form. Clinical indicators are provided on the bottom of this form for your review Please check appropriate box(s): [X] Protein Calorie Malnutrition: [ ] Mild [ ] Moderate [X] Severe [ ] Other Malnutrition (please specify) __ [ ] Underweight without malnutrition [ ] Cachexia [ ] Other diagnosis [ ] Unable to determine In addition, please specify: Present on Admission (POA): [X] Yes [ ] No [ ] Unable to determine CLINICAL INDICATORS - SIGNS / SYMPTOMS / LABS DIETARY ASSESSMENT 03/31: "INABILITY TO HOLD FOOD DOWN AFTER SWALLOWING" "9.7% WEIGHT LOSS IN 6 WEEKS ALONGSIDE INABILITY TO CONSUME PO TO MEET NEEDS IN 6 WEEKS" PT NOTE 03/31: "FAILURE TO THRIVE" "MUSCLE ATROPHY" BMI 21.5 ALBUMIN 04/01: 2.4 RISKS: "ACUTE DECOMPENSATION AND RAPID DECLINE" (PROGRESS NOTE 04/03) FELICIANO (PROGRESS NOTE 04/03) TOXIC METABOLIC ENCEPHALOPATHY (PROGRESS NOTE 04/03) TREATMENT: MAXIMUM ASSISTANCE PER NURSING ASSESSMENT 04/03 NUTRITIONAL SUPPLEMENTS (ORDERED 03/31) MEGACE (03/31-PRESENT) Moderate Malnutrition (in acute illness) Energy Intake: <75% of estimated energy requirement for > 7 days Weight Loss: 1-2%/1 week; 5%/ 1 month; 7.5%/3 months Other: mild body fat loss; mild muscle mass loss; mild fluid accumulation; Severe Malnutrition (in acute illness) Energy Intake: < 50% of estimated energy requirement for > 5 days Weight Loss: >1-2%/1 week; >5%/1 month; >7.5%/3 months Other: moderate body fat loss; moderate muscle mass loss; moderate- severe fluid accumulation; measurably reduced skidder runner strength Moderate Malnutrition (in chronic illness) Energy Intake: <75% of estimated energy requirement for >1 month Weight Loss: 5%/1 month; 7.5%/3 months; 10%/6 months; 20%/1 year Other: mild body fat loss; mild muscle mass loss; mild fluid accumulation Severe Malnutrition (in chronic illness) Energy Intake: <75% of estimated energy requirement for >1 month Weight Loss: >5%/1 month; >7.5%/3 months; >10%/6 months; >20%/1 year Other: severe body fat loss; severe muscle mass loss; severe fluid accumulation ; measurably reduced skidder runner strength (This form is maintained as a part of the permanent medical record) 2014 [employer]. All Rights Reserved [email or web address] Office: [phone] [facility]
--- NOTE | 2019-04-03 17:45 | PRG ---
DATE OF SERVICE: 04/03/2019 ADDENDUM: Please add it to the dictation of Dr. Paula Robert. Ms. Gannon is improved this morning from her FELICIANO, superimposed on CKD. She likely has a rheumatoid process causing many of her symptoms and we are awaiting input from Dr. Ferrer regarding a possible renal biopsy to proceed with further management. Job ID: [id number]
[2019-04-03] MEDS: Simvastatin 20 MG TAB PO SCH (20:52)
[2019-04-04] MEDS: SODIUM BICARBONATE IV SCH ×2 (00:12→13:14)
[2019-04-04] MEDS: SODIUM CHLORIDE IV SCH ×2 (00:12→13:14)
[2019-04-04] MEDS: STERILE WATER IV SCH ×2 (00:12→13:14)
[2019-04-04 04:58] LABS: #Eosinphils 0.4 thou/uL (0.0-0.7); #Lymphocytes 1.1 thou/uL (1.20-3.40); #Monocytes 0.6 thou/uL (0.11-0.59); #Neutrophils 10.5 thou/uL (1.40-6.50); %Basophils 0.2 % (0.0-1.0); %Eosinophils 3.3 % (0.0-10.0); %Lymphocytes 8.5 % (21.0-51.0); %Monocytes 4.5 % (0.0-10.0); %Neutrophils 83.6 % (42.0-75.0); Hemoglobin 7.1 g/dL (12.0-16.0); Mean Corpuscular HGB CONC 33.8 g/dL (32.0-36.0); Mean Corpuscular Hemoglobin 27.8 pg (27.0-31.0); Mean Corpuscular Volume 82.2 fL (78.0-98.0); Mean Platelet Volume 7.5 fL (7.4-10.4); Platelet Count 306 thou/uL (130-400); RBC Distribution Width 14.9 % (11.5-14.5); Red Blood Cell (RBC) Count 2.54 mill/uL (4.20-5.40); White Blood Cell (WBC) Count 12.6 thou/uL (4.8-10.8)
[2019-04-04 05:16] LABS: Anion Gap 15 mmol/L (10-20); BUN (Urea Nitrogen) 33 mg/dL (9.8-20.1); Calc. Creatinine Clearance 19 mL/min (70-130); Calcium 8.5 mg/dL (7.8-10.44); Carbon Dioxide 26 mmol/L (23-31); Chloride 98 mmol/L (98-107); Estimated GFR-MDRD 21; Glucose 83 mg/dL (83-110); Potassium 3.8 mmol/L (3.5-5.1); Sodium 135 mmol/L (136-145)
--- NOTE | 2019-04-04 06:09 | PDOC.FM ---
- Subjective Subjective: Pt remains confused today. She is AxO to self only. Thinks it is 1943, states she was born in 1945. She was having discussion with someone who is not in the room. She thinks she is at the [facility]. Denies pain. Feels like she could eat this AM. - Objective MAR Reviewed: Yes Vital Signs & Weight: Vital Signs (12 hours) Temp Pulse Resp BP Pulse Ox 04/04/19 03:35 98.3 F 85 16 140/76 91 L 04/03/19 23:23 99.1 F 85 20 163/97 H 92 L 04/03/19 20:00 92 L 04/03/19 19:17 98.6 F 78 22 H 151/83 H 92 L Weight Admit Weight 55.111 kg Weight 55.111 kg I&O: 04/02/19 04/03/19 04/04/19 06:59 06:59 06:59 Intake Total 1948 2285 250 Output Total 1375 2325 1400 Balance 180 -03 -7019 Result Diagrams: 04/04/19 04:15 04/04/19 04:15 Phys Exam - Physical Examination Constitutional: NAD Respiratory: no wheezing, clear to auscultation bilateral Cardiovascular: RRR, no significant murmur Gastrointestinal: soft, non-tender, no distention, positive bowel sounds Musculoskeletal: no edema, pulses present Deviation from normal: axO x1 Dx/Plan (1) Acute kidney injury superimposed on chronic kidney disease Code(s): N17.9 - ACUTE KIDNEY FAILURE, UNSPECIFIED; N18.9 - CHRONIC KIDNEY DISEASE, UNSPECIFIED Status: Acute (2) Acute encephalopathy Code(s): G93.40 - ENCEPHALOPATHY, UNSPECIFIED Status: Acute (3) Dyslipidemia Code(s): E78.5 - HYPERLIPIDEMIA, UNSPECIFIED Status: Chronic (4) Hypertension Code(s): I10 - ESSENTIAL (PRIMARY) HYPERTENSION Status: Chronic (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 Hx of rheumatoid vasculitis. - CT head showing chronic changes - Neuro consulted, appreciate recs - Routine neuro checks FELICIANO on CKD, with Uremia Intrinsic renal disease, possibly ATN vs other etiology - No change from yesterday, Cr remains above baseline. Baseline appears to be ~ 1.0. - FeNa 1.6%, this points towards intrinsic etiology so ATN is favored. - Fluid resuscitate w/ Bicarb per nephro. - B/L renal U/S negative. GALDINO, ANCA, RF pending. - Nephro consulted, Dr. Ferrer, appreciate recs. Presumptive UTI w/ negative urine culture CXR indicative of PNA, aspiration vs. infiltrate, vs. atelectasis - Rocephin x3 days, discontinued. Urine culture neg at 48 hours - PT/OT/Speech eval and treat GI bleeding in setting of known gastric ulcer Normocytic anemia - FOBT negative - Hgb at 7.1 this AM. Will consider transfusion. - Consulted GI, appreciate recs - May consider repeat colonoscopy as outpatient. - Consider uremic bleeding, which can present cutaneously or as GI bleeding - Originially considered obtaining CT scan of abd/pelvis w/ and w/o oral and IV contrast to look for malignancy, however we will wait on kidney function improvement. Occult malignancy is not ruled out. Hypokalemia Hypochloremia Hypomagnesemia - replaced. Monitor Rheumatoid vasculitis - hold meloxicam - hold other home nephrotoxic medications: ramipril, HCTZ HTN HLD - Give statin - hold HCTZ, give bisoprolol only Code: FULL VTE PPx: heparin 5000 SC TID GI PPx: pantoprazole bid Fluids: Bicarb @ 125 ml/hr Diet: regular, dietary consulted for decreased PO intake, continue mechanical soft and supplementation with megace Paula Robert MD PGY1 Disposition/LOS: Admit to stroke inpatient. Pt has been accepted at [facility]. While waiting for results, we may consider placement there for the time being.
[2019-04-04] MEDS: Acetaminophen 325 MG TAB PO PRN ×2 (09:10→17:19)
[2019-04-04] MEDS: Potassium Chloride 20 MEQ TAB PO SCH ×2 (09:11→17:18)
[2019-04-04] MEDS: Heparin 5,000 UNITS/ML VIAL SC SCH (09:11)
[2019-04-04] MEDS: Ferrous Sulfate 325 MG TAB PO SCH ×2 (09:11→17:19)
[2019-04-04] MEDS: Bisoprolol Fumarate 5 MG TAB PO SCH (09:11)
[2019-04-04] MEDS: Megestrol Acetate 800 MG/20 ML UDCUP PO SCH (09:11)
[2019-04-04] MEDS: Pantoprazole 40 MG VIAL IVP SCH (09:12)
--- NOTE | 2019-04-04 09:59 | PRG ---
DATE OF SERVICE: 04/04/2019 SERVICE: Renal Medicine. SUBJECTIVE: Ms. Gannon is a 73-year-old white female, initially admitted due to failure to thrive and decreased p.o. intake. She was seen by the Renal Service for an acute kidney injury on top of a possible chronic renal failure. Superimposed prerenal azotemia was suspected. Empiric volume repletion has been given. Recently, she has been placed on isotonic bicarbonate due to the metabolic acidosis. No other complaints today. She is feeling better today. Due to the protein and hematuria in the urine, an GALDINO and ANCA were sent. They are also pending. The patient voices no new complaints today. OBJECTIVE: VITAL SIGNS: Blood pressure is 140/76, heart rate 85, respiratory rate 16, temperature 98.3, and pulse ox 91%. GENERAL: Awake, alert, comfortable, not in distress. SKIN: Adequate turgor. HEENT: She has pale conjunctivae. Anicteric sclerae. NECK: No neck mass. No carotid bruits. No JVD. CHEST: No deformities. LUNGS: Clear breath sounds. No wheezing. No crackles. HEART: Normal sinus rhythm. No murmurs, gallops, or rubs. ABDOMEN: Globular, soft, nontender. No masses. EXTREMITIES: No edema. No deformities. Status post left BKA. MEDICATIONS: Medications of April 04, 2019, were reviewed. LABORATORY DATA: Laboratories of April 04, 2019; white count 12.6, hemoglobin 7.1, platelet count 306,000, sodium 135, potassium 3.8, chloride 98, carbon dioxide 26, BUN 33, creatinine 2.31, calcium 8.5, magnesium 2.0. ASSESSMENT AND PLAN: 1. Anemia. Consider blood transfusion 1 unit of packed RBC. This is to optimize hemodynamics. 2. Acute kidney injury on top of her chronic renal failure-creatinine relatively stable. No indication for any dialytic intervention. Continue IV hydration. 3. Proteinuria/hematuria. GALDINO and ANCA have been sent. Awaiting results. Continue supportive care. 4. Recheck basic metabolic panel and CBC in a.m. Job ID: [id number]
--- NOTE | 2019-04-04 12:04 | PRG ---
DATE OF SERVICE: 04/04/2019 Ms. Gannon is sitting quietly in bed, in no distress. She is not eating and this could become an issue going forward. We are still awaiting some rheumatoid studies, but otherwise she is ready for discharge to a nearer her home. We will try to get more records from Dr. Rain regarding the nature of her rheumatoid disease. We appreciate Dr. Ferrer's input as well. Job ID: [id number]
[2019-04-04 14:58] LABS: ANA Symphony (Qualitative) Negative (Negative); ANA Symphony (Quantitative) 0.2 Ratio (< 0.7 Negative); dsDNA IgG Antibody 0.9 IU/mL (<10 Negative)
[2019-04-04 15:25] LABS: CCP IgG Antibody 1.1 EliAU/mL (<7 Negative); EliA RAS New Method **** NEW METHOD ****
[2019-04-04 16:08] VITALS: BP 131/77; TEMP 98.3
[2019-04-05 16:09] LABS: Myeloperoxidase AutoAbs <9.0 U/mL (0.0-9.0); Perinuclear (P-ANCA) <1:20 titer (Neg:<1:20); Proteinase-3 AutoAbs Greater than 100.0 U/mL (0.0-3.5)
== END 2019-04-04 17:43 | disposition swing bed (61) | DRG 682 ==
LOC: ERS 10:07 → ERHOLD 13:02 → 2SE 15:57
PROVIDERS: ADMIT Student in an Organized Health Care Education/Training Program; ATTEND Student in an Organized Health Care Education/Training Program
DX: N17.9 Acute kidney failure, unspecified (principal); G92 Toxic encephalopathy; E43 Unspecified severe protein-calorie malnutrition; K25.4 Chronic or unspecified gastric ulcer with hemorrhage; N39.0 Urinary tract infection, site not specified; M06.9 Rheumatoid arthritis, unspecified; I12.9 Hypertensive chronic kidney disease with stage 1 through stage 4 chronic kidney disease, or unspecified chronic kidney disease; N18.9 Chronic kidney disease, unspecified; K21.9 Gastro-esophageal reflux disease without esophagitis; D63.1 Anemia in chronic kidney disease; M05.20 Rheumatoid vasculitis with rheumatoid arthritis of unspecified site; E87.6 Hypokalemia; W18.30XA Fall on same level, unspecified, initial encounter; R32 Unspecified urinary incontinence; Z96.642 Presence of left artificial hip joint; E78.5 Hyperlipidemia, unspecified; Z87.891 Personal history of nicotine dependence; Z89.512 Acquired absence of left leg below knee; Z98.51 Tubal ligation status; Z98.42 Cataract extraction status, left eye; Z98.41 Cataract extraction status, right eye; Z68.21 Body mass index [BMI] 21.0-21.9, adult; E83.42 Hypomagnesemia; E87.8 Other disorders of electrolyte and fluid balance, not elsewhere classified
CPT/HCPCS: 36415; 36430; 51701; 70450; 71045; 76770; 80048; 80053; 81003; 81015; 82274; 82553; 82570; 82607; 82746; 83520; 83540; 83550; 83690; 83735; 83880; 84100; 84134; 84145; 84300; 84484; 85025; 85652; 86038; 86140; 86200; 86225; 86256; 86850; 86900; 86901; 87077; 87086; 87186; 93005; 96374; A4217; A4353; C9113; J0696; J1644; J3475; J3480; J3490; P9016; S0028

== ENCOUNTER 2019-04-09 20:58 | Inpatient (IN) | payer MEDICARE ==
[2019-04-09 22:28] VITALS: BMI 25.4
[2019-04-09 22:54] LABS: Base Excess (BEa) -8.9 mEq/L (-2.0 to +3.0); Calcium, Ionized 1.36 mmol/L (1.12-1.30); Carboxyhemoglobin (COHb) 1.6 gm% (0.0-3.0); O2 Tension (PaO2) 78.4 mmHg (> 70.0); Potassium - ABG Lab 4.43 mmol/L (3.70-5.30); pH, Arterial 7.44 (7.35-7.45)
[2019-04-09 22:59] LABS: CO2 Tension 21.2 mmHg (35.0-45.0)
--- NOTE | 2019-04-09 23:09 | PDOC.FPRHP ---
- History of Present Illness Chief Complaint: difficulty swallowing foods and liquids History of Present Illness: 73 y/o F with a PMHx of P-ANCA vasculitis, CKD, BKA of LLE, HTN, RA and gastric ulcer, presents via transfer from [place] swing bed back to [facility] to CCU. Pt was discharged from [facility] on 04/04. Dr. Ferrer was seeing the patient for acute on chronic kidney disease, and P-ANCA vasculitis flare. She showed improvement in her renal function before discharge. Pt reports she has been unable to swallow her food well, spitting her chewed food back up or regurgitating. She is also having trouble swallowing fluids since leaving the hospital. Pt's labs slowly started to show deterioration in renal function while in [place], non-responsive to IVF's. Cr reached 3.37, and is 2.93 today. She also began to show signs of aspiration pneumonia with SOB, increased WBC and dysphagia. CXR showed RUL pneumonia with increased opacity in all lung kuhn, and cardiomegaly. Pt lost IV access, and there was no success in [place] at restarting an IV access for antibiotic therapy. Pt was diagnosed with aspiration pneumonia and transferred back to [facility] for higher level of care. - Allergies/Adverse Reactions Allergies Allergy/AdvReac Type Severity Reaction Status Date / Time No Known Allergies Allergy Verified 04/09/19 22:33 - Home Medications Medication Instructions Recorded Confirmed Type Folic Acid 1 mg PO DAILY 05/15/16 04/10/19 History Megestrol Acetate 400 mg PO BID 03/31/19 04/10/19 History Acetaminophen [Tylenol Regular 650 mg PO Q4H PRN tab 04/04/19 04/10/19 Rx Strength] Bisacodyl [Dulcolax] 5 mg PO DAILYPRN PRN tab 04/04/19 04/10/19 Rx Bisoprolol Fumarate [Zebeta] 10 mg PO DAILY tab 04/04/19 04/10/19 Rx Ferrous Sulfate [Feosol] 325 mg PO BID-WM tab 04/04/19 04/10/19 Rx Mirtazapine [Remeron] 30 mg PO HS #30 tab 04/04/19 04/10/19 Rx Amlodipine [Norvasc] 5 mg PO DAILY tab 04/09/19 04/10/19 Rx Heparin 5,000 units SC BID vial 04/09/19 04/10/19 Rx Pantoprazole [Protonix] 40 mg PO DAILY tab 04/09/19 04/10/19 Rx Simvastatin [Zocor] 20 mg PO HS tab 04/09/19 04/10/19 Rx Ondansetron [Zofran ODT] 4 mg PO Q6H PRN 04/10/19 04/10/19 History - History PMHx: RA, P-ANCA vasculitis, RA, HTN, CKD, Gastric Ulcer, MDD, Lumbosacral stenosis, HLD, Normocytic anemia, urinary incontinence PSHx: - L BKA s/p non-healing ulcer / vasculitis - EGD 03/2019 - Colonoscopy 6-7 years ago, 1 polyp removed - R total hip arthroplasty - Tubal ligation - Bilateral carpal tunnel surgeries - Bilateral cataract surgeries FHx: Father: Prostate cancer. Mother: Breast cancer. Dementia. Uncle: DM. Social: Tobacco: 50 pack-years (stopped in 2015), social alcohol use, no drug use Retired. Lives with in [place]. Caregiver 5 days per week. Has 2 healthy sons that are . - Review of Systems ROS unobtainable: due to mental status (A&O X2. Pt does not report having any pain, SOB, Cough, FOSTER, or CP.) Respiratory: denies: cough, shortness of breath Cardiovascular: denies: chest pain Gastrointestinal: reports: vomiting - Vital signs BP: 152/91 HR: 102 RR: 34 Tmax: 100.3 Pox: 94% on 2L NC Wt: 63.2 kg - Physical Exam Constitutional: NAD -Constitutional: cachectic appearance. A&O X2 to person and place. Disoriented to situation and time. HEENT: normocephalic and atraumatic, PERRLA, EOMI, conjunctiva clear, no scleral icterus, MMM Neck: supple, trachea midline, no JVD Heart: normal S1/S2, no murmurs/rubs/gallops, pulses present, no edema, other ( Tachycardic, with reguar rhythm.) Lungs: good air movement -Lungs: Diffuse expiratory wheezing and coarse crackles Abdomen: soft, non-tender, bowel sounds present -Musculoskeletal: Left BKA No pitting edema Skin: no rash/lesions, good turgor, no jaundice Heme/Lymphatic: no unusual bruising or bleeding, no purpura, no petechia -Psychiatric: A&O X2 FMR H&P: Results - Labs Result Diagrams: 04/10/19 19:46 04/10/19 19:46 Lab results: ABG pH 7.44 (7.35-7.45) 04/09/19 22:47 ABG pCO2 21.2 mmHg (35.0-45.0) L* 04/09/19 22:47 ABG pO2 78.4 mmHg (> 70.0) H 04/09/19 22:47 Laboratory Tests 04/09/19 04/09/19 04/09/19 19:44 19:44 22:47 WBC 16.9 H Hgb 8.8 L Hct 28.4 L Neutrophils % 86.0 H Bicarbonate Actual 14.0 L ABG pH 7.44 ABG pCO2 21.2 L* ABG pO2 78.4 H Creatinine 2.93 H Estimated GFR (MDRD) 16 - Radiology Interpretation Chest x-ray Status: image reviewed by me, report reviewed by me (RUL PNA, cardiomegaly) FMR H&P: A/P - Problem List (1) Aspiration pneumonia due to food (regurgitated) Current Visit: Yes Status: Acute Code(s): J69.0 - PNEUMONITIS DUE TO INHALATION OF FOOD AND VOMIT (2) Dysphagia Current Visit: Yes Status: Acute Code(s): R13.10 - DYSPHAGIA, UNSPECIFIED (3) Cardiomegaly Current Visit: Yes Status: Acute Code(s): I51.7 - CARDIOMEGALY (4) Vasculitis, ANCA positive Current Visit: Yes Status: Chronic Code(s): I77.6 - ARTERITIS, UNSPECIFIED (5) Leukocytosis Current Visit: Yes Status: Acute Code(s): D72.829 - ELEVATED WHITE BLOOD CELL COUNT, UNSPECIFIED (6) Acute kidney injury superimposed on chronic kidney disease Current Visit: Yes Status: Acute Code(s): N17.9 - ACUTE KIDNEY FAILURE, UNSPECIFIED; N18.9 - CHRONIC KIDNEY DISEASE, UNSPECIFIED (7) Dyslipidemia Current Visit: Yes Status: Chronic Code(s): E78.5 - HYPERLIPIDEMIA, UNSPECIFIED (8) Hypertension Current Visit: Yes Status: Chronic Code(s): I10 - ESSENTIAL (PRIMARY) HYPERTENSION (9) Peripheral neuropathy Current Visit: Yes Status: Chronic Code(s): G62.9 - POLYNEUROPATHY, UNSPECIFIED (10) Rheumatoid vasculitis Current Visit: Yes Status: Chronic Code(s): M05.20 - RHEUMATOID VASCULITIS WITH RHEUMATOID ARTHRITIS OF [facility] SITE (11) Protein-calorie malnutrition, severe Current Visit: Yes Status: Acute Code(s): E43 - UNSPECIFIED SEVERE PROTEIN- CALORIE MALNUTRITION (12) Acute respiratory failure with hypoxia Current Visit: Yes Status: Acute Code(s): J96.01 - ACUTE RESPIRATORY FAILURE WITH HYPOXIA - Plan 73 y/o F admitted to CCU for further workup and treatment of Acute Hypoxic Respiratory Failure 2/2 Aspiration Pneumonia. 1. Acute Hypoxic Respiratory Failure 2/2 Aspiration Pneumonia - NPO - Speech eval and treat - O2 PRN - Consult Pulmonology in the AM. - ABG: pH 7.43, CO2 21, O2 78, Bicarb 14 - CXR RUL Pneumonia and Cardiomegaly - Ordered Procal, BNP 2. Aspiration Pneumonia - Started Vanc and Zosyn, renally dosed, pharm to dose - NPO until speech eval complete - CXR RUL pneumonia, cardiomegaly - ED physician consulted for Central Line Placement 3. Dysphagia - Regurgitating foods and difficulty swallowing with even liquids. - Speech eval 4. Severe Protein Calorie Malnutrition - Failure to thrive - Wt loss of 9.7% total body weight over last 6 weeks - Will restart TID Suplena once speech eval and recommendations complete - Linen Sorter consulted, appreciate recs - Ordered Prealbumin and TSH 5. Acute on Chronic Kidney Disease - Cr. 2.93, GFR 16 - Consult nephrology, Dr. Ferrer. Appreciate recs. - IVF D5W with 100 meq bicarb @ 100 mL/hr - Given 250 mL NS bolus. - Will monitor daily - Ordered Urine creatinine and urine sodium for FENa. 6. P-ANCA Vasculitis - Appreciate Nephrology Recs 7. Hx of RA 8. Hx of HTN - Holding home HTN medications - BP stable 9. Hx of PUD - Restarted Protonix IV 10. Normocytic Anemia - Hg 8.0, Hct 24.0 - Most likely etiology from CKD, anemia of chronic disease. Code Status: full code Diet: NPO until speech eval DVT ppx: heparin Dispo: Stable, admitted to CCU for further evaluation and treatment of acute hypoxic respiratory failure 2/2 aspiration pneumonia. FMR H&P: Upper Level - Pertinent history 73 y/o F PMHx RA, HTN, HLD, and vasculitis resulting in L BKA with recent admission to [facility] and subsequent Swing Bed in [place] presents as transfer from [place] due to failure to thrive, concern for aspiration pneumonia and inability to obtain IV access. The patient is AOx2 to person and place. She was not very communicative despite being able to speak. She was coughing on exam , but did not answer many ROS questions. Pt was recently admitted and evaluated by Speech therapy and dietary due to decreased appetite, failure to thrive, and concern for aspiration. At that time she was found to have a 9.7% weight loss in the past 6 weeks, but she was given a liquid diet and said she could tolerate this. She has a h/o vasculitis and was also worked up with autoimmune studies due to worsened FELICIANO on CKD. She was found to be uremic and suspect uremic encephalopathy. She was noted to have had an EGD a week prior to admission with a gastric ulcer by Dr. Hernandez. - Pertinent findings Vitals: Temp 100.3, HR 102, RR 33, O2 sat 94% on 2L, BP 152/91 PE: Gen alert, Oriented x2, tachypneic on 2L O2 by NC HEENT MMM CV tachycardic, regular rhythm, no murmurs Lungs coarse breath sounds with end expiratory wheezes and scattered crackles Abd soft, NTTP Ext L BKA, RLE with no edema Labs from [place] on 04/09: Hb 8.8, WBC 16.9, Platelet 472, Cl 115, CO2 13, BUN 32, Cr 2.93, GFR 16, Lactic acid 1.4 CXR RUL PNA, questionable RLL, LLL, L perihilar infiltrates, cardiomegaly - Plan Date/Time: 04/09/19 [id number] I, Rufina Schmidt MD, PGY-3, have evaluated this patient and agree with findings/ plan as outlined by international controller resident. Pertinent changes/additions are listed here. 1. Acute Hypoxic Respiratory Failure 2/2 Aspiration Pneumonia Pt with RUL infiltrate and possible other infiltrates in RLL, LLL, and perihilar regions concerning for aspiration pneumonia. -Admit to CCU -Consult ED physician for central line due to inability to obtain peripheral access -Vanc, Zosyn -Procalcitonin -Consult pulm in AM -O2 prn -ABG -Speech consult -Barium swallow 2. Severe protein calorie malnutrition with failure to thrive Pt with 9.7% weight loss in past 6 weeks. Had been on ensure enlive and then suplena was added during last hospitalization -Dietary consult -Restart suplena TID once cleared for PO -Abdominal x-ray and US due to inability to obtain abd CT for concern for GI source. Consider GI source. -TSH -Prealbumin 3. FELICIANO on CKD Pt remains above baseline, but not as uremic as past hospitalization. There was concern for intrinsic cause with h/o ANCA vasculitis. -Consult Dr. Ferrer in AM -Repeat FeNa -Will get UA -Renally dose medications 4. h/o Vasculitis -Consult Dr. Ferrer as above 5. PUD -Continue protonix Restart home meds once tolerating PO Dispo: Admit to CCU Addendum - Attending - Attending Attestation Date/Time: 04/10/19 [id number] I personally evaluated the patient and discussed the management with Dr. Zimmerman on 04/09/2019 I agree with the History, Examination, Assessment and Plan documented above with any addition or exceptions noted below- 73 y/o F with a PMHx of vasculitis , CKD, BKA of LLE, HTN, RA and gastric ulcer sent from [facility] back to [facility] due to worsening renal function, continued weakness and poor appetite. Pt was discharged from [facility] on 04/04. Pt reports she has been unable to swallow her food well, spitting her chewed food back up or regurgitating. She is also having trouble swallowing fluids since leaving the hospital. Therefore, also concern for possible aspiration. PMH/PSH/Meds/SH reviewed and agree with residnet's documentation. P102 BP 136/78 RR29 100% on 2LNC Exam repeated by me and agree with resident's findings. Labs: Pf=270, K= 4.9, Fp=610, CO2=13, BUN/Cr=32/2.93, Gluc=96, lactic acid=1.4, H/H=8.8/28.4, Plt =472, ABG=7.438/21.2/78.4/14 CXR- increased opacities A/P: 1) Possible aspiration pneumonia- continue current abx, 2) FELICIANO on CKD- continue IVF; recheck in am and consult nephrology. 3) FTT - uncertain etiology; continue PPI due to recent gastric ulcer; dietary consult. 4) Vasculitis ?flare causing renal function decline and GI issues- continue to monitor
[2019-04-09] MEDS ORDERED: WATER IV SCH (23:30)
[2019-04-09] MEDS ORDERED: SODIUM BICARBONATE IV SCH (23:30)
[2019-04-09] MEDS ORDERED: DEXTROSE 5% IV SCH (23:30)
[2019-04-09] MEDS ORDERED: Vancomycin HCl 1 GM in Sodium Chloride 0.9% 250 ML 300 ML IVPB SCH (23:45)
[2019-04-09] MEDS ORDERED: Sodium Chloride 0.9% 250 ML IV SCH (23:45)
[2019-04-10] MEDS ORDERED: Vancomycin HCl 1.25 GM in Sodium Chloride 0.9% 250 ML 250 ML IVPB SCH (00:15)
[2019-04-10] MEDS: Sodium Chloride 38.44 MEQ, Sodium Bicarbonate 100 MEQ in Sterile Water Injection 990.39 ML IV SCH ×3 (01:31→22:53)
[2019-04-10] MEDS: Piperacillin/Tazobactam 2.25 GM in Sodium Chloride 0.9% 100 ML IVPB SCH ×3 (01:47→17:30)
[2019-04-10 03:53] LABS: #Eosinphils 0.1 thou/uL (0.0-0.7); #Lymphocytes 1.2 thou/uL (1.20-3.40); #Monocytes 0.8 thou/uL (0.11-0.59); #Neutrophils 14.3 thou/uL (1.40-6.50); %Basophils 0.1 % (0.0-1.0); %Eosinophils 0.8 % (0.0-10.0); %Lymphocytes 7.1 % (21.0-51.0); %Monocytes 5.1 % (0.0-10.0); %Neutrophils 86.9 % (42.0-75.0); Hemoglobin 6.5 g/dL (12.0-16.0); Mean Corpuscular HGB CONC 32.3 g/dL (32.0-36.0); Mean Corpuscular Hemoglobin 27.4 pg (27.0-31.0); Mean Platelet Volume 6.8 fL (7.4-10.4); Platelet Count 416 thou/uL (130-400); Red Blood Cell (RBC) Count 2.36 mill/uL (4.20-5.40); White Blood Cell (WBC) Count 16.4 thou/uL (4.8-10.8)
[2019-04-10 03:55] LABS: Bacteria/HPF None Seen HPF (None Seen); Bilirubin Negative (Negative); Blood, Urine 2+ (Negative); Clarity Clear (Clear); Glucose, Urine (Dipstick) Normal (Negative); Leukocyte Negative Leu/uL (Negative); Nitrite Negative (Negative); Protein, Urine (Dipstick) 100 mg/dL (Neg-Trace); Squamous Epithelial 0-3 HPF (0-3); Urobilinogen Normal mg/dL (Less than 2); WBC/HPF 0-3 HPF (0-3)
[2019-04-10 03:56] LABS: Urine Culture Reflex No No
[2019-04-10 04:11] LABS: Creatinine, Urine 35.36 mg/dL (47-110)
[2019-04-10 04:11] LABS: ALT (SGPT) 24 U/L (8-55); AST (SGOT) 16 U/L (5-34); Albumin 2.4 g/dL (3.4-4.8); Alkaline Phosphatase 147 U/L (40-110); Anion Gap 14 mmol/L (10-20); BUN (Urea Nitrogen) 34 mg/dL (9.8-20.1); Bilirubin, Total 0.6 mg/dL (0.2-1.2); Calc. Creatinine Clearance 18 mL/min (70-130); Calcium 9.1 mg/dL (7.8-10.44); Carbon Dioxide 14 mmol/L (23-31); Chloride 115 mmol/L (98-107); Estimated GFR-MDRD 16; Globulin 3.1 g/dL (2.4-3.5); Glucose 111 mg/dL (83-110); Potassium 4.6 mmol/L (3.5-5.1); Protein, Total 5.5 g/dL (6.0-8.3); Sodium 138 mmol/L (136-145)
--- NOTE | 2019-04-10 06:03 | PDOC.FM ---
- Subjective Subjective: Patient complains of feeling "lousy." States she has diffuse abdominal tenderness. She is AOx1. Pt continues to cough, has had bloody sputum overnight. Afebrile, but temperature up to 100.3. Hemoglobin has dropped from 8.8 to 6.5, pt is receiving 1 unit of PRBCs this AM. - Objective Vital Signs & Weight: Vital Signs (12 hours) Temp 04/10/19 04:00 99.7 F H 04/10/19 01:00 98.1 F 04/09/19 22:00 100.3 F H Weight Weight 63.2 kg Most Recent Monitor Data Heart Rate from ECG 98 NIBP 136/88 NIBP BP-Mean 104 Respiration from ECG 36 SpO2 94 I&O: 04/08/19 04/09/19 04/10/19 06:59 06:59 06:59 Intake Total 600 Output Total 300 Balance 300 Result Diagrams: 04/11/19 04:25 04/11/19 04:25 Phys Exam - Physical Examination Tachypneic. Coughing, appears uncomfortable. HEENT: PERRLA Very dry MM with hemoptysis, blood dried to mouth Neck: supple Tenderness over L side neck where CL attempted Diffuse rhales, crackles; inspiratory and expiratory wheezing on exam in LL Gastrointestinal: soft distention, decreased bowel sounds, minimally diffusely TTP Musculoskeletal: no edema, pulses present cap refill <2 seconds Neurological: non-focal, moves all 4 limbs Psychiatric: normal affect Deviation from normal: AO to person only Skin: no rash, normal turgor, cap refill <2 seconds Dx/Plan (1) Elevated brain natriuretic peptide (BNP) level Code(s): R79.89 - OTHER SPECIFIED ABNORMAL FINDINGS OF BLOOD CHEMISTRY Status : Acute (2) PUD (peptic ulcer disease) Code(s): K27.9 - PEPTIC ULC, SITE UNSP, UNSP AC OR CHR, W/O HEMOR OR PERF Status: Chronic (3) Acute kidney injury superimposed on chronic kidney disease Code(s): N17.9 - ACUTE KIDNEY FAILURE, UNSPECIFIED; N18.9 - CHRONIC KIDNEY DISEASE, UNSPECIFIED Status: Acute (4) Acute respiratory failure with hypoxia Code(s): J96.01 - ACUTE RESPIRATORY FAILURE WITH HYPOXIA Status: Acute (5) Aspiration pneumonia due to food (regurgitated) Code(s): J69.0 - PNEUMONITIS DUE TO INHALATION OF FOOD AND VOMIT Status: Acute (6) Cardiomegaly Code(s): I51.7 - CARDIOMEGALY Status: Acute (7) Dysphagia Code(s): R13.10 - DYSPHAGIA, UNSPECIFIED Status: Acute (8) Leukocytosis Code(s): D72.829 - ELEVATED WHITE BLOOD CELL COUNT, UNSPECIFIED Status: Acute (9) Metabolic acidosis Code(s): E87.2 - ACIDOSIS Status: Acute (10) Protein-calorie malnutrition, severe Code(s): E43 - UNSPECIFIED SEVERE PROTEIN-CALORIE MALNUTRITION Status: Acute (11) Dyslipidemia Code(s): E78.5 - HYPERLIPIDEMIA, UNSPECIFIED Status: Chronic (12) Hypertension Code(s): I10 - ESSENTIAL (PRIMARY) HYPERTENSION Status: Chronic (13) Rheumatoid vasculitis Code(s): M05.20 - RHEUMATOID VASCULITIS WITH [facility]AT[facility]ITIS OF [facility] Status: Chronic (14) Vasculitis, ANCA positive Code(s): I77.6 - ARTERITIS, UNSPECIFIED Status: Chronic (15) Pneumonia Code(s): J18.9 - PNEUMONIA, UNSPECIFIED ORGANISM Status: Acute - Plan Plan: 73 y/o F admitted to CCU for further workup and treatment of Acute Hypoxic Respiratory Failure 2/2 Aspiration Pneumonia. # Acute Hypoxic Respiratory Failure 2/2 Aspiration Pneumonia Pt with RUL infiltrate and possible other infiltrates in RLL, LLL, and perihilar regions concerning for aspiration pneumonia. - NPO until speech eval and treat - O2 PRN, currently at 3L [facility] - Continue vanc and zosyn, renally dose - Consult Pulmonology this AM. - ABG: pH 7.43, CO2 21, O2 78, Bicarb 14 - Procal indeterminate range at 0.76 # Acute on chronic normocytic Anemia, concern for blood loss anemia Hgb dropped from 8.8 to 6.5 -1 u PRBCs ordered - small amount of hemoptysis, RBC in UA as well - Known hx of gastric ulcers. Protonix BID. Consider GI consult. Unable to do CT abdomen w/ contrast 2/2 renal function. - Monitor H/H - Abd XR pending. US abdomen showed no acute abnormality, Rt mild renal cortical thinning. - FOBT pending #Elevated BNP - BNP elevated at 800, crackles on lung auscultation, no edema BLE. Cardiomegaly on CXR - Last echo 02/2017 EF 55-60% - Repeat Echo pending # Dysphagia - Regurgitating foods and difficulty swallowing with even liquids. - Speech eval # Severe Protein Calorie Malnutrition - Failure to thrive - Wt loss of 9.7% total body weight over last 6 weeks - Will restart TID Suplena once speech eval and recommendations complete - Weathercaster consulted, appreciate recs - Prealbumin low at 8.0, TSH wnl - Abdominal x-ray and US due to inability to obtain abd CT for concern for GI source. Consider GI source. US abdomen showed no acute abnormality, Rt mild renal cortical thinning. # Acute on Chronic Kidney Disease Pt remains above baseline, but not as uremic as past hospitalization. There was concern for intrinsic cause with h/o ANCA vasculitis. - Cr. 2.93, GFR 16. UOP adequate @ 40 ml/hr - Consult nephrology, Dr. Ferrer. Appreciate recs. - continue IVF D5W with 100 meq bicarb @ 100 mL/hr - Given 250 mL NS bolus. - Calculated FeNA 5.9%, Post-renal/obstructive - UA shows RBCs no gross hematuria, hx of glomerulonephritis - renally dose medications # P-ANCA Vasculitis - Appreciate Nephrology Recs # Hx of RA # Hx of HTN - Holding home HTN medications - BP stable # Hx of PUD - Continue Protonix IV Code Status: full code Diet: NPO until speech eval DVT ppx: hold heparin due to acute drop in hgb Addendum - Attending - Attending Attestation Date/Time: 04/10/19 7877 I personally evaluated the patient and discussed the management with Dr. Hansen I agree with the History, Examination, Assessment and Plan documented above with any addition or exceptions noted below. Patient with failure to thrive and continues to decline. Still no appetite. Remains anemia but improved after 2 units. GI to evaluate for possible GI cause. Remains dependant on BiPAP. Possibly related to vasculititis. Does not appear to have had biopsies before. Will follow up with pulm and nephro. Continue high dose IV steroids. Consider other immunosuppressants as needed. Chris
--- NOTE | 2019-04-10 08:03 | ULT ---
ABDOMINAL ULTRASOUND: Date: 04/10/19 COMPARISON: None. HISTORY: Suspected malignancy. TECHNIQUE: Multiplanar Wilson scale sonographic imaging of the abdomen provided. FINDINGS: The imaged pancreas is unremarkable. No focal liver lesion or intrahepatic biliary dilatation. Imaged IVC and aorta appear grossly unremarkable. There is no gallbladder wall thickening or pericholecysti c fluid. No gallstones are noted. Right kidney demonstrates mild cortical thinning and increased echogenicity measuring 10.4 cm in cran iocaudal dimension. No right renal mass, hydronephrosis, or stone noted. Left kidney measures 11.3 cm in craniocaudal dimension and demonstrates no evidence for stone, hydron ephrosis, or mass. Spleen measures up to 9.6 cm, within normal limits. IMPRESSION: No acute findings. Right kidney demonstrates mild increased echogenicity and cortical thinning which may signify renal medical disease in the proper clinical setting. POS: [facility]
[2019-04-10] MEDS ORDERED: Heparin 5,000 UNITS/ML VIAL SC SCH (09:00)
[2019-04-10] MEDS ORDERED: Famotidine 20 MG TAB PO SCH (09:00)
[2019-04-10] MEDS ORDERED: FLU VACC TS2019-20(65YR UP)/PF 180 MCG/0.5 ML SYRINGE IM ONE (09:00)
[2019-04-10] MEDS ORDERED: Prevnar 13-Val Conj/PF 0.5 ML SYRINGE IM ONE (09:00)
--- NOTE | 2019-04-10 09:42 | RAD ---
EXAM: Single view of the chest HISTORY: Dyspnea COMPARISON: 04/09/2019 FINDINGS: Single view of the chest shows a normal sized cardiomediastinal silhouette. There is stabl e consolidation in the inferior aspect of the right upper lobe. Consolidation is also seen in the left lower lobe. The bones are unremarkable. IMPRESSION: Stable multifocal pneumonia
--- NOTE | 2019-04-10 09:46 | RAD ---
FRONTAL RADIOGRAPH CHEST: DATE: 04/10/2019. COMPARISON: 04/09/2019. HISTORY: Evaluate for pneumothorax, attempted central line placement. FINDINGS: There is no pneumothorax evident on either side. There is interstitial and alveolar opacity in bilateral perihilar regions as well as the suprahilar r egion, the lateral left base, and throughout the right upper lobe, similar when compared to the prior exam. Stable prominence of the cardiac silhouette. IMPRESSION: Multifocal interstitial and alveolar opacity. Findings may signify multifocal infectious pneumonitis , aspiration, or asymmetric edema. Followup to resolution advised. POS: [facility]
--- NOTE | 2019-04-10 09:58 | PRG ---
DATE OF SERVICE: 04/10/2019 SUBJECTIVE: Ms. Gannon is a 73-year-old white female, being followed by the Renal Service for acute kidney injury on top of her chronic renal failure. She was admitted due to a possible diagnosis of aspiration pneumonia. She was also noted to be anemic on admission. A previous workup in the past showed she had a positive ANCA. Concern is that she have underlying ANCA vasculitis affecting the kidney since the urinalysis showed proteinuria and hematuria. She is currently receiving IV hydration-bicarbonate drip and blood transfusion. OBJECTIVE: VITAL SIGNS: Blood pressure is 132/86, heart rate 91, respiratory rate 26, pulse ox 100%. GENERAL: The patient is awake, comfortable, not in overt distress. SKIN: Adequate turgor. HEENT: Pale conjunctivae, anicteric sclerae. NECK: No neck mass. No carotid bruits. No JVD. CHEST: No deformities. LUNGS: Decreased breath sounds. HEART: Normal sinus rhythm. No murmur. No gallops. No rubs. ABDOMEN: Globular, soft, nontender, no masses. EXTREMITIES: No edema, no deformities. NEUROLOGIC: Awake, oriented to 3 spheres. Moving all extremities. No tremors. No asterixis. No ataxia. IMAGING STUDIES: Chest x-ray of April 10, 2019, pending. Chest x-ray of April 09, 2019, showed right upper lobe pneumonia with questionable additional infiltrate at the right lower lobe and left lower lobe. LABORATORY DATA: White count on April 10, 2019, was 16.4, hemoglobin was 6.5. Sodium was 138, potassium 4.6, chloride 115, carbon dioxide 14, BUN 34, creatinine 2.93. Further review of the serum creatinine shows the following 1. April 09, 2019, creatinine 2.99. 2. April 08, 2019, creatinine was 3.37. 3. April 05, 2019, creatinine was 2.63. Urinalysis of April 10, 2019, shows protein 100, RBC 11 to 20, urine sodium was 98, urine creatinine 35.36. No evidence of pigmented granular casts. White count 16.4, hemoglobin 6.5, platelet count 416,000. ASSESSMENT AND PLAN: 1. Acute kidney injury on top of chronic renal failure. A superimposed hemodynamically-mediated dysfunction, slowly improving with gentle volume repletion. Continue to optimize hemodynamics. 2. I also noted that albumin was 2.4, and for this reason, we will proceed with albumin infusion with this patient. We will give 25 g IV q.6 for 4 doses. 3. Anemia. P.r.n. blood transfusion. Currently, receiving 1 unit packed RBC. 4. Chronic renal failure. I suspect underlying chronic glomerulonephritis. She did have a positive ANCA of 1:80. In addition, her antiproteinase 3 was greater than 100. My concern is that this patient may have glomerulonephritis secondary to an ANCA vasculitis. I did mention about renal biopsy. They will think about it. Once the patient is more stable with her aspiration pneumonia, consider proceeding with a CT scan-guided renal biopsy. 5. Aspiration pneumonia. Continue supportive care. 6. Overall prognosis remains guarded. Job ID: [id number]
[2019-04-10] MEDS: Sodium Chloride 0.9% (PF) 10 ML VIAL FS PRN (10:01)
[2019-04-10] MEDS: Pantoprazole 40 MG VIAL IVP SCH ×2 (10:01→20:08)
[2019-04-10] MEDS: Albuterol Sulfate 2.5 mg/3 ml Neb NEB SCH ×3 (10:47→18:42)
--- NOTE | 2019-04-10 11:05 | RAD ---
KUB: Date: 04/10/19 COMPARISON: None. HISTORY: Suspected malignancy. FINDINGS: Supine and decubitus radiographs of the abdomen and pelvis provided. No free intraperitoneal air. No evidence for bowel obstruction. There is levoscoliosis of the lumbar spine. There is a hip arthroplas ty on the right. Bowel gas pattern appears nonobstructed. IMPRESSION: Nonobstructed bowel gas pattern. POS: [facility]
[2019-04-10 12:33] LABS: Hemoglobin 7.7 g/dL (12.0-16.0)
[2019-04-10 12:52] LABS: Fibrinogen 659 mg/dL (253-463)
[2019-04-10 12:53] LABS: INR-International Normal Ratio 1.6; PTT 43.6 SEC (22.9-36.1); Prothrombin Time 18.7 SEC (12.0-14.7)
[2019-04-10 13:04] LABS: FSP-Qualitative ABNORMAL (Normal); FSP-Semiquantitative >=5 & <20 mcg/mL (Less than 5)
[2019-04-10 13:20] LABS: Creatinine, Urine 34.42 mg/dL (47-110)
[2019-04-10 16:41] LABS: #Eosinphils 0.1 thou/uL (0.0-0.7); #Lymphocytes 1.3 thou/uL (1.20-3.40); #Monocytes 0.8 thou/uL (0.11-0.59); #Neutrophils 10.5 thou/uL (1.40-6.50); %Basophils 0.4 % (0.0-1.0); %Eosinophils 0.7 % (0.0-10.0); %Lymphocytes 9.9 % (21.0-51.0); %Monocytes 6.5 % (0.0-10.0); %Neutrophils 82.5 % (42.0-75.0); Hemoglobin 7.1 g/dL (12.0-16.0); Mean Corpuscular HGB CONC 33.2 g/dL (32.0-36.0); Mean Corpuscular Hemoglobin 28.1 pg (27.0-31.0); Mean Corpuscular Volume 84.6 fL (78.0-98.0); Platelet Count 405 thou/uL (130-400); RBC Distribution Width 15.8 % (11.5-14.5); Red Blood Cell (RBC) Count 2.53 mill/uL (4.20-5.40); White Blood Cell (WBC) Count 12.8 thou/uL (4.8-10.8)
[2019-04-10 17:01] LABS: Anion Gap 14 mmol/L (10-20); BUN (Urea Nitrogen) 37 mg/dL (9.8-20.1); Calc. Creatinine Clearance 19 mL/min (70-130); Calcium 8.7 mg/dL (7.8-10.44); Carbon Dioxide 17 mmol/L (23-31); Chloride 112 mmol/L (98-107); Estimated GFR-MDRD 17; Glucose 101 mg/dL (83-110); Potassium 4.1 mmol/L (3.5-5.1); Sodium 139 mmol/L (136-145)
[2019-04-10 19:36] LABS: Actual Bicarbonate (HCO3a) 17.1 mEq/L (22-28); Base Excess (BEa) -6.3 mEq/L (-2.0 to +3.0); Calcium, Ionized 1.24 mmol/L (1.12-1.30); Carboxyhemoglobin (COHb) 0.7 gm% (0.0-3.0); O2 Tension (PaO2) 69.2 mmHg (> 70.0); Potassium - ABG Lab 3.88 mmol/L (3.70-5.30); pH, Arterial 7.44 (7.35-7.45)
[2019-04-10 19:40] LABS: Puncture Site RRA
[2019-04-10 19:56] LABS: Hemoglobin 7.6 g/dL (12.0-16.0); Mean Corpuscular HGB CONC 33.3 g/dL (32.0-36.0); Mean Corpuscular Hemoglobin 28.2 pg (27.0-31.0); Mean Corpuscular Volume 84.6 fL (78.0-98.0); Platelet Count 491 thou/uL (130-400); RBC Distribution Width 15.9 % (11.5-14.5); Red Blood Cell (RBC) Count 2.69 mill/uL (4.20-5.40); White Blood Cell (WBC) Count 15.5 thou/uL (4.8-10.8)
[2019-04-10] MEDS ORDERED: Lorazepam 2 MG/ML VIAL SLOW IVP SCH (20:00)
--- NOTE | 2019-04-10 20:10 | PDOC.BPN ---
<Rufina Schmidt - Last Filed: 04/10/19 20:07> - Brief Progress Note Received call that patient more SOB, tachypneic, and tachycardic. Went to evaluate and pt was tachypneic on BiPAP to 30s-40s. Satting 99%. Tachycardic to 100s. Ordered stat ABG, CXR, trop, CBC, CMP. CXR showed more fluid overload ABG showed she is hyperventilating About to receive another unit PRBC -Will give 0.5mg ativan as pt agitated and pulling at things -Will give 20mg IV lasix Reassess in 30 minutes for improvement. <Paulette Moran - Last Filed: 04/11/19 00:13> Addendum - Attending - Attending Attestation Date/Time: 04/11/19 0011 I personally evaluated the patient and discussed the management with Dr. Schmidt I agree with the History, Examination, Assessment and Plan documented above with any addition or exceptions noted below - Patient less agitated and at times sleeping. RR33 BP 141/102, p110. Nurse reports transfusion completed now and about to receive lasix. Continue close monitoring.
[2019-04-10 20:15] LABS: ALT (SGPT) 17 U/L (8-55); AST (SGOT) 11 U/L (5-34); Albumin 2.5 g/dL (3.4-4.8); Alkaline Phosphatase 121 U/L (40-110); Anion Gap 15 mmol/L (10-20); BUN (Urea Nitrogen) 39 mg/dL (9.8-20.1); Bilirubin, Total 0.9 mg/dL (0.2-1.2); Calc. Creatinine Clearance 18 mL/min (70-130); Calcium 8.4 mg/dL (7.8-10.44); Carbon Dioxide 17 mmol/L (23-31); Chloride 112 mmol/L (98-107); Estimated GFR-MDRD 17; Globulin 2.5 g/dL (2.4-3.5); Glucose 103 mg/dL (83-110); Potassium 4.2 mmol/L (3.5-5.1); Sodium 140 mmol/L (136-145)
[2019-04-10] MEDS ORDERED: Furosemide 20 MG/2 ML VIAL SLOW IVP SCH ×2 (20:15→23:00)
[2019-04-10 20:19] LABS: Anisocytosis SLIGHT = 6-15 cells (100X) (0-5/hpf); Band 6 % (5-11); Lymphocytes 9 % (21-51); MDiff Complete? YES; Monocytes 3 % (0-10); Neutrophil 82 % (42-75); Ovalocytes SLIGHT = 2-5 cells (100X) (0-1/hpf); Platelet Morphology Comment Appears Increased; Polychromasia SLIGHT = 2-3 cells (100X) (0-2/hpf); Schistocytes SLIGHT = 2-5 cells (100X) (0-1/hpf)
[2019-04-10] MEDS ORDERED: methylPREDNISolone Sod Succ 40 MG VIAL IVP SCH (20:30)
--- NOTE | 2019-04-10 20:42 | RAD ---
AP CHEST: HISTORY: Shortness of breath. COMPARISON: 04/10/2019 at 9:16 a.m. FINDINGS: Bilateral infiltrates are again noted. A confluent infiltrate in the right upper lobe does not appear significantly changed. Infiltrates in the left upper and left lower lobes appear more extensive. The re is vascular congestion. Evidence of bilateral effusions. IMPRESSION: Bilateral infiltrates possibly worse on the left when compared to earlier examination. POS: AGW
[2019-04-10] MEDS: methylPREDNISolone Sod Succ 40 MG VIAL IVP SCH (23:07)
[2019-04-10] MEDS ORDERED: methylPREDNISolone Sod Succ/PF 125 MG/2 ML VIAL IVP SCH (23:59)
[2019-04-10] MEDS ORDERED: Vancomycin HCl 500 MG in Sodium Chloride 0.9% 100 ML IVPB SCH (23:59)
--- NOTE | 2019-04-11 00:45 | CON ---
DATE OF CONSULTATION: HISTORY OF PRESENT ILLNESS: Mary Kay Gannon is a very pleasant 73-year-old female. The history is obtained from the son. Apparently, she has had a bad last couple years. She was diagnosed with systemic vasculitis that she says left her with multiple nonhealing ulcers of her lower extremities. One of these progressed to a point where bones in her ankle and tendons were visible. She eventually had a [id number]-ngy-pimx amputation on the left, which her son says it is taking over a year to heal. She just now was fitted for a prosthesis for lower extremity. She has been able to ambulate around the house. Left lower extremity resting on a walker seat and the right lower extremity pushing. She was admitted with cough and shortness of breath. She has been placed on BiPAP this morning and actually looks comfortable now. She was taken off for 2 hours, became tachypneic and required replacement of the BiPAP. PAST MEDICAL HISTORY: Remarkable for; 1. Recent ulcer diagnosed with Dr. Hernandez after not eating for 3 weeks. She was not having abdominal pain from what I can tell. 2. History of prerenal azotemia. 3. History of 20+ pound weight loss according to the son. 4. History of vasculitis. 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 5. History of hypertension. 6. Chronic kidney disease. 7. History of urinary incontinence. 8. History of hip arthroplasty after a fall. 9. History of multiple falls. 10. History of carpal tunnel surgery. 11. History of cataract surgery. FAMILY HISTORY: Positive for cancer. MEDICATIONS: Prior to admission, she was on hydrochlorothiazide, Mobic, simvastatin, Ambien, Benadryl, bisoprolol, folate, prednisone, gabapentin. REVIEW OF SYSTEMS: Otherwise negative per the son. PHYSICAL EXAMINATION: GENERAL: She is in no distress when she is on BiPAP; off BiPAP, she had a respiratory rate in the 30s. The respiratory therapist and the nurse this morning duly placed her on BiPAP when they came in noticing her distress. VITAL SIGNS: She is afebrile. Heart rate is 110, blood pressure 133/77, respiratory rate is in the high 20s. HEENT: Pupils are equal. Sclerae are anicteric. NECK: Supple. No lymphadenopathy. LUNGS: Distant clear. HEART: Regular rhythm. ABDOMEN: Soft and nontender. Her stump is healed on the left. The right lower extremity is unremarkable. NEUROLOGIC: Could not be assessed. LABORATORY DATA: Chest radiograph shows patchy bilateral alveolar infiltrates. White count 15.5, hemoglobin 7.6, and platelets 491. Sodium 140, potassium 4.2, chloride 112, bicarb 19, BUN 39, creatinine 2.79. PH 7.44, CO2 26, PO2 69. IMPRESSION: 1. Pneumonia, likely aspiration mediated. 2. Severe deconditioning. 3. Prerenal azotemia. 4. Status post xgsum-flb-nnry amputation, left. 5. P-ANCA vasculitis. 6. Agree with broad antimicrobial therapy. 7. There is a possibility that her pulmonary infiltrates are related to her vasculitis given that it is an ANCA positive vasculitis. She definitely needs a generous dose steroids at this time. I will be happy to follow the other physicians caring for. Job ID: [id number]
[2019-04-11] MEDS: Piperacillin/Tazobactam 2.25 GM in Sodium Chloride 0.9% 100 ML IVPB SCH ×4 (02:39→20:40)
[2019-04-11 04:45] LABS: PT - Undiluted 19.2 SEC (12.0-14.7); PTT - Undiluted 39.9 SEC (22.9-36.1)
[2019-04-11 04:49] LABS: #Lymphocytes 0.6 thou/uL (1.20-3.40); #Monocytes 0.3 thou/uL (0.11-0.59); #Neutrophils 13.5 thou/uL (1.40-6.50); %Basophils 0.1 % (0.0-1.0); %Eosinophils 0.2 % (0.0-10.0); %Lymphocytes 3.9 % (21.0-51.0); %Neutrophils 93.8 % (42.0-75.0); Hemoglobin 8.2 g/dL (12.0-16.0); Mean Corpuscular HGB CONC 33.4 g/dL (32.0-36.0); Mean Corpuscular Hemoglobin 28.4 pg (27.0-31.0); Mean Corpuscular Volume 84.9 fL (78.0-98.0); Platelet Count 385 thou/uL (130-400); RBC Distribution Width 14.9 % (11.5-14.5); Red Blood Cell (RBC) Count 2.89 mill/uL (4.20-5.40); White Blood Cell (WBC) Count 14.4 thou/uL (4.8-10.8)
[2019-04-11 05:02] LABS: ALT (SGPT) 16 U/L (8-55); AST (SGOT) 13 U/L (5-34); Albumin 2.4 g/dL (3.4-4.8); Alkaline Phosphatase 105 U/L (40-110); Anion Gap 17 mmol/L (10-20); BUN (Urea Nitrogen) 41 mg/dL (9.8-20.1); Calc. Creatinine Clearance 18 mL/min (70-130); Calcium 8.7 mg/dL (7.8-10.44); Carbon Dioxide 19 mmol/L (23-31); Chloride 108 mmol/L (98-107); Estimated GFR-MDRD 16; Glucose 146 mg/dL (83-110); Iron 13 ug/dL (50-170); Iron Binding Capacity, Total 105 mcg/dL (265-497); Iron Binding Capacity, Total 106 mcg/dL (265-497); Potassium 3.9 mmol/L (3.5-5.1); Protein, Total 5.4 g/dL (6.0-8.3); Sodium 140 mmol/L (136-145)
[2019-04-11] MEDS: methylPREDNISolone Sod Succ 40 MG VIAL IVP SCH ×3 (06:01→17:24)
--- NOTE | 2019-04-11 06:01 | PDOC.FM ---
- Subjective Subjective: Patient remained agitated and tachypneic into 30s overnight on bipap. Due to lungs appearing fluid overloaded, was given dose of lasix last evening. WBC mildly improved this AM to 14.4, however procal trended upward to 1.16. - Objective Vital Signs & Weight: Vital Signs (12 hours) Temp Pulse Resp Pulse Ox 04/11/19 04:00 98.6 F 04/11/19 02:03 107 H 04/11/19 01:51 95 04/11/19 00:00 98.9 F 04/10/19 23:00 98.9 F 04/10/19 22:45 98.9 F 04/10/19 22:26 108 H 04/10/19 21:00 98.7 F 04/10/19 20:16 98.7 F 04/10/19 20:02 99.5 F 04/10/19 20:00 99.5 F 04/10/19 19:56 99.5 F 04/10/19 19:30 93 L 04/10/19 18:44 104 H 04/10/19 18:42 103 H 37 H 93 L Weight Admit Weight 63.2 kg Weight 63.2 kg Most Recent Monitor Data Heart Rate from ECG 95 NIBP 111/68 NIBP BP-Mean 82 Respiration from ECG 31 SpO2 92 I&O: 04/09/19 04/10/19 04/11/19 06:59 06:59 06:59 Intake Total 1056 3186 Output Total 300 1915 Balance 756 1271 Result Diagrams: 04/11/19 04:25 04/11/19 04:25 Phys Exam - Physical Examination sleeping in bed, pale appearing, on bipap Neck: no nodes, supple diminished breath sounds diffusely, wheezing diffusely Cardiovascular: RRR, no significant murmur distended, mild guarding in all quadrants, +BS, soft Musculoskeletal: no edema, pulses present L BKA Mild swelling LUE Neurological: non-focal, moves all 4 limbs Psychiatric: normal affect Skin: no rash, normal turgor, cap refill <2 seconds Dx/Plan (1) Elevated brain natriuretic peptide (BNP) level Code(s): R79.89 - OTHER SPECIFIED ABNORMAL FINDINGS OF BLOOD CHEMISTRY Status : Acute (2) PUD (peptic ulcer disease) Code(s): K27.9 - PEPTIC ULC, SITE UNSP, UNSP AC OR CHR, W/O HEMOR OR PERF Status: Chronic (3) Acute kidney injury superimposed on chronic kidney disease Code(s): N17.9 - ACUTE KIDNEY FAILURE, UNSPECIFIED; N18.9 - CHRONIC KIDNEY DISEASE, UNSPECIFIED Status: Acute (4) Acute respiratory failure with hypoxia Code(s): J96.01 - ACUTE RESPIRATORY FAILURE WITH HYPOXIA Status: Acute (5) Aspiration pneumonia due to food (regurgitated) Code(s): J69.0 - PNEUMONITIS DUE TO INHALATION OF FOOD AND VOMIT Status: Acute (6) Cardiomegaly Code(s): I51.7 - CARDIOMEGALY Status: Acute (7) Dysphagia Code(s): R13.10 - DYSPHAGIA, UNSPECIFIED Status: Acute (8) Leukocytosis Code(s): D72.829 - ELEVATED WHITE BLOOD CELL COUNT, UNSPECIFIED Status: Acute (9) Metabolic acidosis Code(s): E87.2 - ACIDOSIS Status: Acute (10) Protein-calorie malnutrition, severe Code(s): E43 - UNSPECIFIED SEVERE PROTEIN-CALORIE MALNUTRITION Status: Acute (11) Dyslipidemia Code(s): E78.5 - HYPERLIPIDEMIA, UNSPECIFIED Status: Chronic (12) Hypertension Code(s): I10 - ESSENTIAL (PRIMARY) HYPERTENSION Status: Chronic (13) Rheumatoid vasculitis Code(s): M05.20 - RHEUMATOID VASCULITIS WITH RHEUMATOID ARTHRITIS OF [facility] SITE Status: Chronic (14) Vasculitis, ANCA positive Code(s): I77.6 - ARTERITIS, UNSPECIFIED Status: Chronic (15) Pneumonia Code(s): J18.9 - PNEUMONIA, UNSPECIFIED ORGANISM Status: Acute - Plan Plan: 73 y/o F admitted to CCU for further workup and treatment of Acute Hypoxic Respiratory Failure 2/2 Aspiration Pneumonia. # Acute Hypoxic Respiratory Failure 2/2 Aspiration Pneumonia Infiltrate stable RUL, KELLI and LLL infiltrate worsening with pleural effusions - On bipap, unable to tolerate binasal cannula yesterday - Continue Zosyn for aspiration pneumonia - Procal increased from 0.76 to 1.16, WBC improved from 15.5 to 14.4 - Concern for possible PE with tachypnea and tachycardia, however unable to perform CTA 2/2 renal function. Consider V/Q scan today. # Acute on chronic normocytic Anemia, concern for blood loss anemia Hgb now 8.2 after 2 u PRBCs. Uncertain of source for bleed or if 2/2 to renal disease - Known hx of gastric ulcers. Protonix BID. GI consulted. Unable to do CT abdomen w/ contrast 2/2 renal function. Abd XR showed no bowel obstruction, Abd US negative for acute findings. FOBT pending #Concern for DIC -DIC panel showed elevated FDP, PT and PTT. However, Fibrinogen is also high. Platelet count WNL. Heme consult 04/10, appreciate recs. -Anticoagulation held due to decrease in Hgb #Elevated BNP - Pt given dose of lasix as CXR appeared fluid overloaded yesterday. Repeat CXR pending - Echo showed EF 50-55% 04/10/19 # Dysphagia - Regurgitating foods and difficulty swallowing with even liquids. - Speech eval pending once pt more stable # Severe Protein Calorie Malnutrition - Failure to thrive - Wt loss of 9.7% total body weight over last 6 weeks - Will restart TID Su[place] once speech eval and recommendations complete - Resort Host consulted, appreciate recs - Prealbumin low at 8.0, TSH wnl # Acute on Chronic Kidney Disease Pt remains above baseline, but not as uremic as past hospitalization. There was concern for intrinsic cause with h/o ANCA vasculitis. - Cr. stable 2.87. UOP adequate. - Consult nephrology, Dr. Ferrer. Appreciate recs. - continue IVF D5W with 100 meq bicarb @ 100 mL/hr -albumin and lasix - renally dose medications # P-ANCA Vasculitis - Appreciate Nephrology Recs - continue methylprednisolone # Hx of RA # Hx of HTN - Holding home HTN medications - BP stable # Hx of PUD - Continue Protonix IV Code Status: full code Diet: NPO DVT ppx: hold DVT ppx due to concern for bleed. Palliative consulted for goals of care. Addendum - Attending - Attending Attestation Date/Time: 04/11/19 0908 I personally evaluated the patient and discussed the management with Dr. Hansen I agree with the History, Examination, Assessment and Plan documented above with any addition or exceptions noted below. Continues to require BiPAP. Pulm following. Continue high dose IV steroids. Check CRP/ESR. Procal borderline. Will continue antibx at this time. Nephro following. GI discussed nutrition options with PEG tube. Family to decide this afternoon. ABrayMD
[2019-04-11 06:15] LABS: Magnesium 1.8 mg/dL (1.6-2.6); Phosphorus 4.9 mg/dL (2.3-4.7)
[2019-04-11] MEDS: Albuterol Sulfate 2.5 mg/3 ml Neb NEB SCH ×4 (07:01→18:28)
--- NOTE | 2019-04-11 07:38 | RAD ---
Portable chest: 04/11/2019 COMPARISON: 04/10/2019 HISTORY: Dyspnea FINDINGS: Stable nonspecific bilateral perihilar, bilateral upper lobe (right greater than left), and left basilar airspace disease. No pneumothorax. Heart and mediastinal contours are stable. IMPRESSION: Stable nonspecific multifocal airspace disease.
--- NOTE | 2019-04-11 08:17 | CON ---
DATE OF CONSULTATION: 04/10/2019 REASON FOR CONSULTATION: Anemia with possibility of GI bleeding. HISTORY OF PRESENT ILLNESS: Ms. Mary Kay Gannon is a very pleasant 73-year-old female, known to me from before. The patient has had a below-knee amputation of left leg a few months ago. She had a complicated course after surgery and has had infection and very protracted postop course. Subsequently, she was fitted for prosthesis and the prosthesis has to be taken out because it does not really seating properly. As per her , she was also kind of mentally down after this happened. She saw me 3 weeks ago because of history of dysphagia to solid food. She had an EGD done which revealed no esophageal obstruction. The esophagus was open completely. She did have a couple of small gastric ulcers. The ulcers are very shallow and not very impressive. She was placed on PPI and was advised to increase oral intake. The patient was hospitalized about 10 days ago in this hospital because of anemia, acute on chronic kidney injury and was seen by Dr. Micheal Ferrer. I did see her last Wednesday and she was actually very much awake and alert, communicative. I tried to increase oral intake. She was subsequently transferred to [facility] in [place]. Apparently, she had also respiratory failure and was brought back yesterday. She is on BiPAP at the present time. The patient has no history of overt GI bleeding. Also after admission, she has had no stool and also I did speak to her . The patient apparently had a couple of stools, but both times they did not have any bleeding. The anemia appears more of nutritional and anemia of chronic disease. She has no history of bleeding at least to my knowledge. She has been transfused 1 unit of packed RBCs today. She has no stool today. Chest x-ray done on admission showed pulmonary infiltrate indicative of aspiration pneumonia. She is on broad-spectrum antibiotic therapy at the present time. No other relevant history. MEDICAL ILLNESSES: 1. Rheumatoid arthritis. 2. vasculitis. 3. Hypertension. 4. Acute on chronic kidney disease. 5. Gastric ulcer. 6. Lumbosacral stenosis. 7. Hyperlipidemia. 8. Anemia, probably nutritional and possibly anemia of chronic disease. 9. Urinary incontinence. PAST SURGICAL HISTORY: 1. Status post BKA, nonhealing, had a very protracted postop course. 2. Right hip replacement. 3. Tubal ligation. 4. Bilateral carpal tunnel syndrome release. 5. Cataract surgery. 6. Colonoscopy with polypectomy 7 years ago. FAMILY HISTORY: Father, prostate cancer. Mother, breast cancer and dementia. Uncle, diabetes mellitus. MEDICATIONS: Medication list reviewed. REVIEW OF SYSTEMS: Not obtainable because she is very sleepy and not able to give any history. PHYSICAL EXAMINATION: GENERAL: She is mildly short winded. She is on BiPAP. VITAL SIGNS: Her pulse is 96, blood pressure is 140/70. Her PO2 is 96. NECK: Supple. CARDIOVASCULAR: First and second heart sounds are normal. LUNGS: Bilateral coarse . ABDOMEN: Soft. Abdomen is nontender. No organomegaly. No masses. EXTREMITIES: Left BKA. LABORATORY DATA: Admitting WBC 16,400, hemoglobin 6.5, hematocrit 20.1, MCV 85, platelet count is 416,000, polymorphs 86, lymphocytes 7. Repeat H and H after 1 unit 7.7 hemoglobin, hematocrit 24.0. Repeat at 4:30 today hemoglobin 7.1, hematocrit 28.4. Chem-7 is normal. CO2 14, BUN is 34, creatinine is 2.93, glucose is 111, calcium 9.1, bilirubin 0.6, AST 16, ALT 24, alkaline phophatase 147, BNP very high 840. Albumin is 2.4. Chest x-ray shows bilateral infiltrates suggestive of aspiration pneumonia. CLINICAL IMPRESSION: A 73-year-old female with status post below-knee amputation earlier this year and had a very complicated protracted course. The patient was seen by me about 3 weeks ago because of dysphagia. The EGD did not show any esophageal obstruction. However, she has small gastric ulcers. The patient's mental status was very good a couple of weeks ago. She was ambulating with a walker. She was in swing bed in [place], appears to have aspiration pneumonia. She also has respiratory failure. She is on BiPAP and also on IV antibiotics. Although she has anemia, I do not have any history of any gastrointestinal bleeding. Since her last admission, she is anemic. I believe anemia is mostly from anemia of chronic disease, possibly nutritional. RECOMMENDATION: My recommendations are as follows. 1. Continue BiPAP and also IV antibiotics. 2. Transfuse p.r.n. 3. IV PPI. 4. Repeat possible EGD and PEG tube placement as she needs to have some nutrition. I did talk to the patient's and he is agreeable. I will talk to Dr. Randal Vieyra tomorrow and see whether EGD and PEG tube can be done in the next 24 to 48 hours. Job ID: [id number]
[2019-04-11] MEDS: Pantoprazole 40 MG VIAL IVP SCH ×2 (08:40→20:46)
[2019-04-11] MEDS: Sodium Chloride 0.9% (PF) 10 ML VIAL FS PRN (08:40)
[2019-04-11] MEDS ORDERED: Furosemide 40 MG/4 ML VIAL SLOW IVP SCH (08:45)
[2019-04-11] MEDS: Albumin 25% 25 GM/100 ML BOT IVPB SCH ×3 (09:45→20:46)
[2019-04-11 09:46] LABS: PT 1:1 37C-90 min. Incubation 15.2 SEC; PTT 1:1 37C/90 MIN Incubation 39.1 SEC; PTT 1:1 Mix 33.8 SEC
[2019-04-11] MEDS: Sodium Chloride 38.44 MEQ, Sodium Bicarbonate 100 MEQ in Sterile Water Injection 990.39 ML IV SCH (09:46)
--- NOTE | 2019-04-11 09:47 | PRG ---
DATE OF SERVICE: 04/11/2019 SERVICE: Renal Medicine. SUBJECTIVE: Ms. 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 The possibility that she may have renal vasculitis remain due to positive ANCA. Chest x-ray, infiltrate. She was also nonspecific, which showed multifocal airspace disease. Consideration that this could be related to a vasculitis. Also remains aside from the possibility of aspiration pneumonia. Yesterday, she became more agitated. She was given 2 doses of Lasix. This morning, she is more relaxed. No new complaints. Currently, on BiPAP. OBJECTIVE: VITAL SIGNS: Blood pressure is noted at 131/86, heart rate 98, respiratory rate 27, and pulse ox 95%. GENERAL: The patient is sleeping, but arousable, not in distress. SKIN: Adequate turgor. HEENT: She has slightly pale conjunctivae. Anicteric sclerae. NECK: No neck mass. No carotid bruits. No JVD. CHEST: No deformities. LUNGS: Decreased breath sounds. HEART: Normal sinus rhythm. No murmur. No gallops. No rubs. ABDOMEN: Globular, soft, and nontender. No masses. EXTREMITIES: Trace edema. MEDICATIONS: Medications of April 11, 2019, was reviewed. LABORATORY DATA: Laboratories of April 11, 2019; white count 14.4, hemoglobin 8.2. Sodium 140, potassium 3.9, chloride 108, carbon dioxide 19, BUN 41, creatinine 2.87, calcium 8.7, AST 13, ALT 16, albumin 2.4. Procalcitonin 1.16. Magnesium 1.8, phosphorus 4.9. Chest x-ray of April 11, 2019, shows nonspecific multifocal airspace disease. ASSESSMENT AND PLAN: 1. 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 Consideration for renal vasculitis is being entertained. We will proceed with renal biopsy once the patient is more stable. Please note, there is no indication for any dialytic intervention. 2. Aspiration pneumonia/pulmonary vasculitis ? - on empiric IV steroids. Currently, on methylprednisolone 40 mg IV q.6 hours. We are awaiting with the renal biopsy with this patient. We will proceed if she is more stable. 3. Hypoalbuminemia. Continue to optimize hemodynamics. So far albumin 25 g IV q.6 was ordered. 4. The patient's total 24-hour urine output was noted at 1815. We will give another one time dose of Lasix together with her albumin - Lasix 40 mg IV one dose. Job ID: [id number]
--- NOTE | 2019-04-11 09:55 | PDOC.PALCO ---
Palliative Care Consult - Consult Details Requesting Physician: Dr Hansen Reason for Consult: goals of care, advance directives assistance, family support Family Members Present: Chinyere personal injury litigation paralegal at bedside - Pertinent HPI 73 year old female who was previously at [facility] and transferred to [facility] for rehab anter a recent exacerbation of P-ANCA vasculitis, CKD, BKA, LLE, HTN, RA< and gastric ulcer. Patient reports recent increase in difficulty in swallowing foods, and facility in [place] noted a trend in her renal function highlighting dysfunction. CxR in [place] identified pneumonia, and they were unable to access peripheral venous access secondary to dehydration. Transferred to CCU for a higher level of care for management of what was initially thought to be aspiration pneumonia. - Social History Smoking Status: Former smoker Smoking: quit greater than 1 year Alcohol Use: none Drug Use History: none Living Situation: (Also daily caregiver Chinyere who is at bedside) - Medications MAR Reviewed: Yes - Allergies Allergies/Adverse Reactions: Allergies Allergy/AdvReac Type Severity Reaction Status Date / Time No Known Allergies Allergy Verified 04/09/19 22:33 - Objective Vital Signs: Vital Signs - Most Recent Temp Pulse Resp BP Pulse Ox 98.6 F 89 30 H 136/78 95 04/11/19 08:00 04/11/19 07:01 04/11/19 07:01 04/10/19 11:41 04/11/19 07:01 Palliative Performance Scale: 30 - Physical Exam Constitutional: confusion, mild distress Deviation from normal: Chroically ill appearing, HEENT: moist MMs, sclera anicteric, EOMI Respiratory: tachypnea Deviation from normal: labored respirations, diminished to bases, Gastrointestinal: soft, non-tender, positive bowel sounds Musculoskeletal: no edema, pulses present Deviation from normal: left bka, thready right pedal pulse Neurological: moves all 4 limbs Psychiatric: normal affect, A&O x 3 Skin: normal turgor Deviation from normal: Pallor - Problem List (1) Palliative care encounter Code(s): Z51.5 - ENCOUNTER FOR PALLIATIVE CARE Current Visit: Yes Status: Acute (2) Acute respiratory failure with hypoxia Code(s): J96.01 - ACUTE RESPIRATORY FAILURE WITH HYPOXIA Current Visit: Yes Status: Acute (3) Aspiration pneumonia due to food (regurgitated) Code(s): J69.0 - PNEUMONITIS DUE TO INHALATION OF FOOD AND VOMIT Current Visit : Yes Status: Acute (4) Cardiomegaly Code(s): I51.7 - CARDIOMEGALY Current Visit: Yes Status: Acute (5) Protein-calorie malnutrition, severe Code(s): E43 - UNSPECIFIED SEVERE PROTEIN-CALORIE MALNUTRITION Current Visit: Yes Status: Acute (6) Acute encephalopathy Code(s): G93.40 - ENCEPHALOPATHY, UNSPECIFIED Current Visit: No Status: Acute - Plan/Recommendations Plan: Initial contact this morning. Met with patient and Chinyere patient caregiver. Establish rapor. Follow up family meeting this afternoon to discuss goals of care for patient. , both sons and both [id number] present for family meeting as well as Dr Hansen and Brigette ORTHOPEDIC RN. Discussed resuscitation status, goal that patient hopes to get stronger so possible dobhoff for the next two weeks. Family would like to wait on PEG. Patient states she would like to get stronger to have renal biopsy. *DNAR *NG/dobhoff for nutritional support if needed *Wait on PEG *Continue to support patient and family [80] minutes spent on this encounter with >50% of the time in counseling and coordination of care. Thank you for this very appropriate consult.
[2019-04-11] MEDS ORDERED: Haloperidol Lactate 5 MG/ML VIAL IM PRN (12:34)
--- NOTE | 2019-04-11 16:03 | PDOC.EVN ---
Event Note - Event Note Event Note: Spoke with family at 1400 along with palliative care. Family and patient wish to be DNAR at this time. Later returned to discuss risk/benefits of tube feeds through Dobhoff with patient and family. They request that it is placed tomorrow during the daytime, as she tends to get agitated in the evenings. Plan to place dobhoff tomorrow AM.
--- NOTE | 2019-04-11 17:08 | PRG ---
DATE OF SERVICE: 04/11/2019 SUBJECTIVE: Ms. Gannon is clinically unchanged. She is too weak to come off BiPAP. Family is to have palliative care meeting today, make decisions about intubation or not. OBJECTIVE: VITAL SIGNS: She is afebrile. FiO2 is at 40%. Heart rates in the 90s, blood pressure 123/66. She is on BiPAP. GENERAL: She is reasonably comfortable. LUNGS: Remarkable for mild rhonchi. HEART: Regular rhythm. ABDOMEN: Soft. EXTREMITIES: Without asymmetry. LABORATORY DATA: White count 14.4, hemoglobin 8.2, platelets 385. Sodium 140, potassium 3.9, chloride 108, bicarb 19, BUN 41, and creatinine 2.87. IMPRESSION: 1. Probable pneumonia, less likely ANCA positive vasculitis, pulmonary infiltrates. 2. Chronic kidney disease. 3. Respiratory muscle insufficiency. 4. Status post left lower extremity amputation. 5. Anorexia for at least 3 weeks. 6. Recent ulcer disease. 7. Hypoalbuminemia with protein-calorie malnutrition. 8. Anemia of chronic disease. We will continue supportive care, pending family's decision. Should if she is not better by tomorrow, she will need intubation unless family decides that they do not want this. Job ID: [id number] Critical care time 30 minutes [facility]
[2019-04-11] MEDS: Bacteriostatic Water 30 ML VIAL FS PRN (17:24)
--- NOTE | 2019-04-11 18:14 | PRG ---
DATE OF SERVICE: 04/11/2019 SUBJECTIVE: This 73-year-old female with multiple problems including aspiration pneumonia, vasculitis, chronic kidney disease, anemia, respiratory failure. She is on BiPAP. She is awake and alert and communicative. She has had no nausea or vomiting. She had a stool today. No active bleeding seen. She has been transfused 2 units of blood since admission. Her blood count today is 8.4. Her oral intake has been poor in the last 3 weeks. I did meet family and explained to them that there is a possibility of putting a gastrostomy feeding tube for nutrition support. However, when I spoke with Dr. Randal Vieyra this afternoon, he informed that the patient's family did not want to have anything aggressive done and does not need to intubate the patient. They have only asked for comfort measures. Apparently, they requested Dobhoff feeding. OBJECTIVE: GENERAL: She is very weak and dyspneic on BiPAP. VITAL SIGNS: Afebrile, pulse is 96, and blood pressure 123/62. CARDIOVASCULAR SYSTEM: First and second heart sounds heard. LUNGS: Bilateral rales on lungs. ABDOMEN: Soft. Abdomen nontender. No organomegaly or masses. LABORATORY DATA: From today, CBC; WBC 14,400, hemoglobin 8.2, hematocrit 24.5, and platelet count 385,000. Chem-7; BUN is 41, creatinine 2.87. RECOMMENDATION: 1. Comfort measures. 2. If the patient's family change their mind, please let we know about the feeding tube. I will sign off from today. Job ID: [id number]
[2019-04-11] MEDS: Lorazepam 2 MG/ML VIAL SLOW IVP PRN (18:59)
--- NOTE | 2019-04-11 19:06 | CON ---
DATE OF CONSULTATION: REASON FOR CONSULT: Elevated PTT. HISTORY OF PRESENT ILLNESS: Ms. Gannon is a 73-year-old female with a history of p-ANCA vasculitis, chronic kidney disease, RA, left BKA, who was at [facility] and transferred to this facility for aspiration pneumonia. She was discharged from this facility in mid-March for tsgtb-oo-zslhmal kidney disease and ANCA vasculitis flare. She apparently aspirated her food and showed signs of pneumonia with shortness of breath, leukocytosis. X-ray showed a right upper lobe pneumonia. She was admitted to the ICU and started on antibiotics. She is also on BiPAP for hypoxia. She has a history of elevated PTT and has been seen by Dr. Richards in 2015, when her PT was 16, INR was 1.3, and PTT was 33.5. Mixing study corrected, and there was no evidence of an inhibitor. It was felt that it was due to malnutrition and she was supplemented with vitamin K. This admission, her INR is 1.6, hgb dropped to 6.5. She has been seen by GI and there is no evidence of bleeding. She apparently has lost approximately 10% of her body weight in the past few weeks due to poor appetite and dysphagia. She is currently resting comfortably. She remains on BiPAP. History was obtained from review of chart and discussion with family at bedside. PAST MEDICAL HISTORY: 1. Rheumatoid arthritis. 2. P-ANCA vasculitis. 3. Hypertension. 4. Chronic kidney disease. 5. Gastric ulcer. 6. Hyperlipidemia. 7. Normocytic anemia. PAST SURGICAL HISTORY: 1. Left BKA. 2. EGD and colonoscopy. 3. Hip arthroscopy. 4. Tubal ligation. 5. Carpal tunnel surgery. ALLERGIES: NO KNOWN DRUG ALLERGIES. HOME MEDICATIONS: 1. Folic acid. 2. Megestrol. 3. Zofran. 4. Norvasc. 5. Dulcolax. 6. Zebeta. 7. Iron. 8. Heparin. 9. Remeron. 10. Protonix. 11. Zocor. FAMILY HISTORY: No history of autoimmune disease. SOCIAL HISTORY: . Has grown children. [id number] history of smoking. No alcohol or illicit drug use. REVIEW OF SYSTEMS: Unable to obtain secondary to respiratory status. PHYSICAL EXAMINATION: VITAL SIGNS: Temperature 98.8, pulse is 103, respiratory rate 33. She is 98% on 40% FiO2. Blood pressure is 138/86. GENERAL: Chronically ill-appearing female, in no acute distress. HEENT: Normocephalic and atraumatic. NECK: Supple. CV: Regular rate and rhythm. She has tachycardia. LUNGS: Clear anterior. ABDOMEN: Soft and nontender. Bowel sounds are positive. EXTREMITIES: She has no clubbing or cyanosis. She has a left BKA. NEUROLOGIC: Deferred. PERTINENT LABS AND X-RAYS: Current WBCs 14.4, hemoglobin 8.2, hematocrit 24.5, platelet count is 385. PT is 18.7, INR is 1.6, and PTT is 43.6. Sodium 140, potassium 3.9, chloride 108, CO2 is 19, BUN is 41, creatinine 2.87, calcium 8.7, bilirubin 1.0, AST is 13, ALT is 16, alkaline phosphatase is 105. Iron is 13, TIBC is 106, iron saturation is 12, ferritin is 794. BNP is 369. Serum total protein 5.4, albumin 2.4, globulin 3.0. ASSESSMENT: 1. Aspiration pneumonia. 2. Acute hypoxic respiratory failure secondary to pneumonia. 3. Elevated PT and PTT. 4. ANCA vasculitis. 5. Anemia of chronic disease. DISCUSSION: The patient had a mixing study. PT and PTT both corrected in vitro with 1:1 mix of plasma. After incubation, both PT and PTT are elevated, favoring a factor inhibitor such as lupus anticoagulant. Fortunately, the patient has no evidence of bleeding. Her hemoglobin has improved with 2 units of blood. We feel this is likely due to nutrition status as she has lost almost 10% of her body weight in the last 6 weeks. B12 and folate are normal. We will continue to monitor the patient's blood counts at this time. She has anemia of chronic disease. Although her iron saturation is low, she may benefit from IV iron. We will continue to watch her CBC for now. Case has been discussed with Dr. Maloney and Dr. Richards. Thank you for the consult. Job ID: [id number] [facility]
[2019-04-12] MEDS: methylPREDNISolone Sod Succ 40 MG VIAL IVP SCH ×3 (00:16→10:20)
[2019-04-12] MEDS: Sodium Chloride 38.44 MEQ, Sodium Bicarbonate 100 MEQ in Sterile Water Injection 990.39 ML IV SCH ×2 (00:16→14:57)
[2019-04-12] MEDS: Bacteriostatic Water 30 ML VIAL FS PRN ×2 (00:16→05:29)
[2019-04-12] MEDS: Piperacillin/Tazobactam 2.25 GM in Sodium Chloride 0.9% 100 ML IVPB SCH ×3 (02:55→14:57)
[2019-04-12] MEDS: Albumin 25% 25 GM/100 ML BOT IVPB SCH (02:56)
[2019-04-12 05:00] LABS: #Lymphocytes 0.8 thou/uL (1.20-3.40); #Monocytes 0.7 thou/uL (0.11-0.59); #Neutrophils 16.9 thou/uL (1.40-6.50); %Eosinophils 0.1 % (0.0-10.0); %Lymphocytes 4.4 % (21.0-51.0); %Neutrophils 91.5 % (42.0-75.0); Hemoglobin 7.6 g/dL (12.0-16.0); Mean Corpuscular HGB CONC 33.9 g/dL (32.0-36.0); Mean Corpuscular Hemoglobin 28.9 pg (27.0-31.0); Mean Corpuscular Volume 85.4 fL (78.0-98.0); Mean Platelet Volume 6.7 fL (7.4-10.4); Platelet Count 428 thou/uL (130-400); Red Blood Cell (RBC) Count 2.61 mill/uL (4.20-5.40); White Blood Cell (WBC) Count 18.5 thou/uL (4.8-10.8)
[2019-04-12 05:17] LABS: ALT (SGPT) 13 U/L (8-55); AST (SGOT) 13 U/L (5-34); Albumin 3.9 g/dL (3.4-4.8); Alkaline Phosphatase 88 U/L (40-110); Anion Gap 21 mmol/L (10-20); BUN (Urea Nitrogen) 48 mg/dL (9.8-20.1); Bilirubin, Total 1.3 mg/dL (0.2-1.2); Calc. Creatinine Clearance 18 mL/min (70-130); Carbon Dioxide 22 mmol/L (23-31); Chloride 104 mmol/L (98-107); Estimated GFR-MDRD 16; Globulin 2.8 g/dL (2.4-3.5); Glucose 160 mg/dL (83-110); Magnesium 1.8 mg/dL (1.6-2.6); Phosphorus 4.9 mg/dL (2.3-4.7); Protein, Total 6.7 g/dL (6.0-8.3); Sodium 144 mmol/L (136-145)
[2019-04-12 05:20] LABS: Potassium 2.9 mmol/L (3.5-5.1)
[2019-04-12] MEDS: Lorazepam 2 MG/ML VIAL SLOW IVP PRN ×2 (05:29→07:53)
[2019-04-12] MEDS ORDERED: Potassium Chloride 40 MEQ in Premix Bag 1 BAG IVPB SCH ×2 (06:00→10:00)
--- NOTE | 2019-04-12 06:54 | PDOC.FM ---
- Subjective Subjective: She states she is tired. She is asking to take the mask off. Patient remained on bipap overnight. Respiratory status is not improved, she appears to be working hard to breathe. She received one dose of ativan overnight for agitation. - Objective Vital Signs & Weight: Vital Signs (12 hours) Temp Pulse Pulse Ox 04/12/19 04:00 98.5 F 04/12/19 02:06 81 04/12/19 01:03 96 04/12/19 00:00 98.1 F 04/11/19 22:04 89 04/11/19 20:00 99.1 F Weight Admit Weight 63.2 kg Weight 63.2 kg Most Recent Monitor Data Heart Rate from ECG 112 NIBP 156/94 NIBP BP-Mean 114 Respiration from ECG 30 SpO2 89 I&O: 04/10/19 04/11/19 04/12/19 06:59 06:59 06:59 Intake Total 1056 3186 3021 Output Total 300 1965 1295 Balance 756 1221 1726 Result Diagrams: 04/12/19 04:45 04/12/19 04:45 Phys Exam - Physical Examination Constitutional: NAD awake and alert, states she is tired HEENT: PERRLA, moist MMs Decreased breath sounds on L side, crackles and wheezing on right. Retracting Cardiovascular: RRR Gastrointestinal: soft, no distention, positive bowel sounds Musculoskeletal: no edema, pulses present Neurological: non-focal, moves all 4 limbs Psychiatric: normal affect Skin: normal turgor, cap refill <2 seconds Dx/Plan (1) Elevated brain natriuretic peptide (BNP) level Code(s): R79.89 - OTHER SPECIFIED ABNORMAL FINDINGS OF BLOOD CHEMISTRY Status : Acute (2) PUD (peptic ulcer disease) Code(s): K27.9 - PEPTIC ULC, SITE UNSP, UNSP AC OR CHR, W/O HEMOR OR PERF Status: Chronic (3) Acute kidney injury superimposed on chronic kidney disease Code(s): N17.9 - ACUTE KIDNEY FAILURE, UNSPECIFIED; N18.9 - CHRONIC KIDNEY DISEASE, UNSPECIFIED Status: Acute (4) Acute respiratory failure with hypoxia Code(s): J96.01 - ACUTE RESPIRATORY FAILURE WITH HYPOXIA Status: Acute (5) Aspiration pneumonia due to food (regurgitated) Code(s): J69.0 - PNEUMONITIS DUE TO INHALATION OF FOOD AND VOMIT Status: Acute (6) Cardiomegaly Code(s): I51.7 - CARDIOMEGALY Status: Acute (7) Dysphagia Code(s): R13.10 - DYSPHAGIA, UNSPECIFIED Status: Acute (8) Leukocytosis Code(s): D72.829 - ELEVATED WHITE BLOOD CELL COUNT, UNSPECIFIED Status: Acute (9) Metabolic acidosis Code(s): E87.2 - ACIDOSIS Status: Acute (10) Protein-calorie malnutrition, severe Code(s): E43 - UNSPECIFIED SEVERE PROTEIN-CALORIE MALNUTRITION Status: Acute (11) Dyslipidemia Code(s): E78.5 - HYPERLIPIDEMIA, UNSPECIFIED Status: Chronic (12) Hypertension Code(s): I10 - ESSENTIAL (PRIMARY) HYPERTENSION Status: Chronic (13) Rheumatoid vasculitis Code(s): M05.20 - RHEUMATOID VASCULITIS WITH [facility]RITIS OF [facility] Status: Chronic (14) Vasculitis, ANCA positive Code(s): I77.6 - ARTERITIS, UNSPECIFIED Status: Chronic (15) Pneumonia Code(s): J18.9 - PNEUMONIA, UNSPECIFIED ORGANISM Status: Acute - Plan Plan: 73 y/o F admitted to CCU for further workup and treatment of Acute Hypoxic Respiratory Failure 2/2 Aspiration Pneumonia vs Vasculitis. # Acute Hypoxic Respiratory Failure 2/2 Aspiration Pneumonia vs Vasculitis Infiltrate stable RUL, KELLI and LLL infiltrate, worsening with pleural effusions. Repeat CXR pending - Remains on bipap, respirations in 20s and 30s, O2 sats drop to 80s off of bipap yesterday. Pt is now retracting, working hard to breathe. Respiratory status declining - Zosyn for aspiration pneumonia - Methylprednisolone 40 q6 for vasculitis - crackles on exam, will repeat lasix dose, CXR pending - Pt made DNAR yesterday, Dr. Vieyra discussed removing bipap with patient's today and keeping patient comfortable, is not sure at this time. # Acute on chronic normocytic Anemia, concern for blood loss anemia -Hgb decreased 8.2 to 7.6, continue to monitor - s/p 2 u PRBCs 04/10. Uncertain of source for bleed or if 2/2 to renal disease -GI Dr. Hernandez consulted. Known hx of gastric ulcers. Protonix BID. -Discussed NG tube temporarily for nutrition, however respiratory status has declined -Heme consulted for concern for DIC, ruled out -Anemia of chronic disease, abnormalities likely 2/2 nutrition status #Elevated BNP, improved - CXR fluid overload - Echo showed EF 50-55% 04/10/19 # Dysphagia - Regurgitating foods and difficulty swallowing with even liquids. - Speech eval pending once pt more stable - Family desires dobhoff # Severe Protein Calorie Malnutrition - Failure to thrive - Wt loss of 9.7% total body weight over last 6 weeks - Prealbumin low at 8.0, TSH wnl - Unable to start dobhoff today as pt's respiratory status worsened # Acute on Chronic Kidney Disease Pt remains above baseline, but not as uremic as past hospitalization. There was concern for intrinsic cause with h/o ANCA vasculitis. - Cr. stable 2.87. UOP adequate. - Consult nephrology, Dr. Ferrer. Appreciate recs. - continue IVF D5W with 75 meq bicarb @ 100 mL/hr -albumin and lasix - renally dose medications # P-ANCA Vasculitis - Appreciate Nephrology Recs - continue methylprednisolone # Hx of RA # Hx of HTN - Holding home HTN medications - BP stable # Hx of PUD - Continue Protonix IV Code Status: DNAR Diet: NPO DVT ppx: hold DVT ppx due to concern for bleed. Addendum - Attending - Attending Attestation Date/Time: 04/12/19 0800 I personally evaluated the patient and discussed the management with Dr. Hansen I agree with the History, Examination, Assessment and Plan documented above with any addition or exceptions noted below. HD#3 Patient continues to have respiratory failure. Not able to wean BiPAP. Would actually benefit from intubation but patient does not wish to be ventilated. Appears to have worsening of vasculitis with possible complication of aspiration pneumonitis. Currently on high dose steroids and antibiotics. Patient requesting to stop treatments and transition to palliative care. Team consulted this AM. Will start to make patient comfortable. Chris
[2019-04-12] MEDS ORDERED: Furosemide 40 MG/4 ML VIAL SLOW IVP SCH (07:00)
[2019-04-12] MEDS: Albuterol Sulfate 2.5 mg/3 ml Neb NEB SCH ×3 (07:50→15:36)
[2019-04-12] MEDS: Pantoprazole 40 MG VIAL IVP SCH (07:53)
[2019-04-12] MEDS ORDERED: levETIRAcetam In NaCl (Iso-Os) 1,000 MG in Premix Bag 1 BAG IVPB STA (09:34)
--- NOTE | 2019-04-12 09:45 | PRG ---
DATE OF SERVICE: 04/12/2019 SERVICE: Renal Medicine. SUBJECTIVE: Ms. Gannon is a 73-year-old white female, who was initially admitted for acute respiratory failure. She had a presumptive diagnosis of multifocal pneumonia. Currently, on IV antibiotics. She still is unable to wean off her BiPAP. In addition, the patient was recently diagnosed with a positive ANCA. We are waiting for clinical improvement before we will proceed with a renal biopsy with this patient. No other acute events noted last night. OBJECTIVE: VITAL SIGNS: Blood pressure is 133/80, heart rate 93, respiratory rate 27, and pulse ox 99%. GENERAL: The patient is awake, supine, on BiPAP. HEENT: She has slightly pale conjunctivae. Anicteric sclerae. NECK: No neck mass. No carotid bruits. No JVD. CHEST: No deformities. LUNGS: Decreased breath sounds, occasional crackles. HEART: Normal sinus rhythm. No murmurs, no gallops, no rubs. ABDOMEN: Globular, soft, nontender. No masses. EXTREMITIES: No edema. MEDICATIONS: Medications of April 12, 2019, were reviewed. LABORATORY DATA: Laboratories of April 12, 2019; white count 18.5, hemoglobin 17.6. Sodium 144, potassium 2.9, chloride 104, carbon dioxide 22, BUN 48, creatinine 2.93, phosphorus 4.9, magnesium 1.8, and albumin is 3.9. ASSESSMENT AND PLAN: 1. Chronic renal failure-consider chronic glomerulonephritis. Still unable to proceed with renal biopsy due to the unstable condition with this patient. Continue supportive care. There is no indication for any dialytic intervention. 2. Pneumonia, on empiric IV antibiotics. 3. Acute respiratory failure-agree with p.r.n. Lasix. Consider increasing Lasix dose as needed. 4. Anemia. The patient is currently on a p.r.n. blood transfusion. In addition, we could consider starting her Epogen if the patient will further stabilize. Overall, prognosis remains guarded. Job ID: [id number]
--- NOTE | 2019-04-12 09:55 | RAD ---
CHEST ONE VIEW: INDICATIONS: History of dyspnea. COMPARISON: 04/09/2019 FINDINGS: Bilateral air space disease and cardiomegaly are stable. Small bilateral pleural effusions persist. N o pneumothorax is evident. IMPRESSION: Stable examination. POS: OFF
[2019-04-12] MEDS ORDERED: Morphine 4 MG/ML VIAL ONE (10:14)
[2019-04-12] MEDS: Morphine 4 MG/ML VIAL SLOW IVP PRN ×5 (12:15→22:12)
--- NOTE | 2019-04-12 13:25 | PDOC.PALPN ---
Palliative Progress Note - Subjective Labored respirations with accessory muscle use, non responsive. ROS: Not obtainable secondary to patient state. O2 via NC - Objective Vital Signs: Vital Signs - Most Recent Temp Pulse Resp BP Pulse Ox 98.3 F 130 H 22 H 136/78 96 04/12/19 12:00 04/12/19 10:42 04/12/19 07:50 04/10/19 11:41 04/12/19 07:50 - Physical Exam Constitutional: moderate distress HEENT: sclera anicteric Respiratory: tachypnea Deviation from normal: irregular respirations Gastrointestinal: soft, non-tender Deviation from normal: non responsive Deviation from normal: pallor, brusing - Assessment (1) Palliative care encounter Code(s): Z51.5 - ENCOUNTER FOR PALLIATIVE CARE Current Visit: Yes Status: Acute (2) Acute respiratory failure with hypoxia Code(s): J96.01 - ACUTE RESPIRATORY FAILURE WITH HYPOXIA Current Visit: Yes Status: Acute (3) Aspiration pneumonia due to food (regurgitated) Code(s): J69.0 - PNEUMONITIS DUE TO INHALATION OF FOOD AND VOMIT Current Visit : Yes Status: Acute (4) Cardiomegaly Code(s): I51.7 - CARDIOMEGALY Current Visit: Yes Status: Acute (5) Protein-calorie malnutrition, severe Code(s): E43 - UNSPECIFIED SEVERE PROTEIN-CALORIE MALNUTRITION Current Visit: Yes Status: Acute (6) Acute encephalopathy Code(s): G93.40 - ENCEPHALOPATHY, UNSPECIFIED Current Visit: No Status: Acute - Plan Plan: Chinyere caregiver, and both sons at bedside. Family wishing to seek comfort measures. Communicated with Dr Vieyra, [30] minutes spent on this encounter with >50% of the time in counseling and coordination of care.
[2019-04-12 19:48] VITALS: TEMP 98.2
[2019-04-13] MEDS: Morphine 4 MG/ML VIAL SLOW IVP PRN ×3 (03:41→11:40)
[2019-04-13] MEDS: Lorazepam 2 MG/ML VIAL SLOW IVP PRN (05:12)
--- NOTE | 2019-04-13 06:36 | PDOC.FM ---
- Subjective Subjective: Seen at bedside this morning resting comfortably. Patient was moved from CCU to Onc yesterday. Following a conversation between palliative and family it was decided that only comfort measures should be provided. Over night there were no acute events. Patient has been getting PRN ativan and morphine. There has been a general down trending in pulse ox, and nursing is giving O2 for comfort by mask - Objective MAR Reviewed: Yes Vital Signs & Weight: Vital Signs (12 hours) Temp Pulse Resp BP Pulse Ox 04/12/19 20:00 86 L 04/12/19 19:47 98.2 F 110 H 24 H 166/85 H 86 L Weight Admit Weight 63.2 kg Weight 63.2 kg Most Recent Monitor Data Heart Rate from ECG 96 NIBP 143/86 NIBP BP-Mean 105 Respiration from ECG 17 SpO2 94 I&O: 04/11/19 04/12/19 04/13/19 06:59 06:59 06:59 Intake Total 3186 3021 870 Output Total 1965 1335 1003 Balance 1221 1686 -133 Result Diagrams: 04/12/19 04:45 04/12/19 04:45 Phys Exam - Physical Examination Constitutional: NAD HEENT: moist MMs Neck: supple Wheezing throughout. Rhonchi in RLL Cardiovascular: RRR, no significant murmur Gastrointestinal: soft, no distention, positive bowel sounds Musculoskeletal: no edema Neurological: moves all 4 limbs Deviation from normal: A&O x0. Will attempt to respond to questions, however produces no words Skin: no rash Dx/Plan (1) Acute kidney injury superimposed on chronic kidney disease Code(s): N17.9 - ACUTE KIDNEY FAILURE, UNSPECIFIED; N18.9 - CHRONIC KIDNEY DISEASE, UNSPECIFIED Status: Acute (2) Acute respiratory failure with hypoxia Code(s): J96.01 - ACUTE RESPIRATORY FAILURE WITH HYPOXIA Status: Acute (3) Aspiration pneumonia due to food (regurgitated) Code(s): J69.0 - PNEUMONITIS DUE TO INHALATION OF FOOD AND VOMIT Status: Acute (4) Cardiomegaly Code(s): I51.7 - CARDIOMEGALY Status: Acute (5) Dysphagia Code(s): R13.10 - DYSPHAGIA, UNSPECIFIED Status: Acute (6) Elevated brain natriuretic peptide (BNP) level Code(s): R79.89 - OTHER SPECIFIED ABNORMAL FINDINGS OF BLOOD CHEMISTRY Status : Acute (7) Leukocytosis Code(s): D72.829 - ELEVATED WHITE BLOOD CELL COUNT, UNSPECIFIED Status: Acute (8) Metabolic acidosis Code(s): E87.2 - ACIDOSIS Status: Acute (9) Protein-calorie malnutrition, severe Code(s): E43 - UNSPECIFIED SEVERE PROTEIN-CALORIE MALNUTRITION Status: Acute (10) Dyslipidemia Code(s): E78.5 - HYPERLIPIDEMIA, UNSPECIFIED Status: Chronic (11) Hypertension Code(s): I10 - ESSENTIAL (PRIMARY) HYPERTENSION Status: Chronic (12) PUD (peptic ulcer disease) Code(s): K27.9 - PEPTIC ULC, SITE UNSP, UNSP AC OR CHR, W/O HEMOR OR PERF Status: Chronic (13) Rheumatoid vasculitis Code(s): M05.20 - RHEUMATOID VASCULITIS WITH RHEUMATOID ARTHRITIS OF UNSP SITE Status: Chronic (14) Vasculitis, ANCA positive Code(s): I77.6 - ARTERITIS, UNSPECIFIED Status: Chronic (15) Acute encephalopathy Code(s): G93.40 - ENCEPHALOPATHY, UNSPECIFIED Status: Acute (16) Hypokalemia Code(s): E87.6 - HYPOKALEMIA Status: Acute (17) Pneumonia Code(s): J18.9 - PNEUMONIA, UNSPECIFIED ORGANISM Status: Acute - Plan Plan: 73 y/o F admitted to CCU for further workup and treatment of Acute Hypoxic Respiratory Failure 2/2 Aspiration Pneumonia vs Vasculitis. 1. Acute Hypoxic Respiratory Failure 2/2 Aspiration Pneumonia vs Vasculitis - Given worsening O2 sat, would expect continued effusions with possible worsening. Pt is on comfort care only at this time. Will continue O2 my mask as needed for comfort. - Morphine for air hunger - Scopolamine for secretions. - Will discuss inpatient hospice with family later today 2. Acute on chronic normocytic Anemia, concern for blood loss anemia - due to new plan for comfort care only, will no longer monitor 3. Elevated BNP, improved 4. Dysphagia - NPO at this time Code Status: DNAR Diet: NPO Dispo: patient is now comfort care only and in the early stages of active . Would expect over the course of the next 1-2 days. Addendum - Attending - Attending Attestation Date/Time: 04/13/19 0803 I personally evaluated the patient and discussed the management with Dr. Brar I agree with the History, Examination, Assessment and Plan documented above with any addition or exceptions noted below. HD#4 Patient now on comfort care. Will determine home hospice vs inpatient hospice this afternoon. Family at bedside. Patient without pain but request "cold vanilla boost" ABrayMD
[2019-04-13] MEDS ORDERED: Scopolamine 1.5 mg/72 hour Patch TD SCH (08:00)
[2019-04-13 08:41] VITALS: BP 144/94
--- NOTE | 2019-04-13 10:38 | PRG ---
DATE OF SERVICE: 04/12/2019 SUBJECTIVE: Ms. Gannon is worse today. She is starting to look fatigued on BiPAP. OBJECTIVE: LUNGS: Remarkable for rhonchi bilaterally. HEART: Regular rhythm. ABDOMEN: Soft LABORATORY DATA: White count 2.87 yesterday. IMPRESSION: Changed secretions, pneumonia, history of a p-ANCA vasculitis with respiratory failure secondary to extreme muscle deconditioning. I have met with the at bedside. Asked him to call the children and get them to attend at the bedside. I think Ms. Gannon will pass away. No matter how aggressive we are. The is leaning toward comfort care and this afternoon he will have his two sons arrive and they have decided they want to proceed forward with just comfort care. CRITICAL CARE TIME: 30 minutes. Job ID: [id number]
[2019-04-13] MEDS ORDERED: Lorazepam 2 MG/ML VIAL SLOW IVP PRN (11:13)
--- NOTE | 2019-04-14 04:59 | DIS ---
DATE OF ADMISSION: 04/09/2019 DATE OF DISCHARGE: 04/13/2019 RESIDENT: Ashley Hansen MD CONSULTS: 1. Nephrology, Dr. Ferrer, 04/10/2019. 2. Gastroenterology, Dr. Hughes, 04/10/2019. 3. Dr. Maloney, hematology, 04/10/2019. 4. Dr. Vieyra, Pulmonology, 04/10/2019. PROCEDURES: 1. Abdominal ultrasound, 04/10/2019, no acute findings. 2. Chest x-ray, 04/10/2019, multifocal interstitial and alveolar opacity. 3. Abdomen x-ray, 04/10/2019, nonobstructive bowel gas pattern. 4. Chest x-ray, 04/10/2019, impression, stable multifocal pneumonia. 5. Echocardiogram, 04/10/2019, ejection fraction visually estimated at 50% to 55 %. Normal-sized left atrium. Mildly enlarged right ventricular cavity. Left ventricular size is normal. Mild mitral regurgitation present. Mild tricuspid regurgitation. Right ventricular systolic pressure was mildly elevated. 6. Chest x-ray 04/10/2019, impression, bilateral infiltrates, possibly worse in the left when compared to earlier examination. 7. Chest x-ray, 04/11/2019, impression, stable nonspecific multifocal airspace disease. 8. Chest x-ray, 04/12/2019, impression, stable examination. PRIMARY DIAGNOSIS: Acute hypoxic respiratory failure secondary to aspiration pneumonia and vasculitis. SECONDARY DIAGNOSES: 1. Acute on chronic normocytic anemia. 2. Concern for blood loss anemia. 3. Elevated BNP. 4. Dysphagia. 5. Severe protein-calorie malnutrition. 6. Acute on chronic kidney disease. 7. P-ANCA vasculitis. 8. Rheumatoid arthritis. 9. Hypertension. 10. Peptic ulcer disease. DISCHARGE MEDICATIONS: Comfort measures only. HISTORY OF PRESENT ILLNESS/HOSPITAL COURSE: This is a 73-year-old female with past medical history of P-ANCA vasculitis, CKD, BKA of left lower extremity, hypertension, rheumatoid arthritis, and gastric ulcers, presented as a transfer from [facility]. The patient is discharged from [place] on April 04. Dr. Ferrer was seeing the patient for acute on chronic kidney disease and vasculitis flare. She showed improvement of renal function prior to discharge. On admission, the patient reported she was unable to swallow her food, was spitting her food back up and regurgitating since leaving the hospital. The patient's labs had started to show renal function deterioration in [place] that was unresponsive to IV fluids. Her creatinine peaked at 3.37 and improved down to 2.93 on admission. She had increased shortness of breath, elevated white count, and dysphagia. A chest x-ray showed a right upper lobe pneumonia with increased opacity in all lung kuh[place]. The patient had lost IV access in [place] and was sent here for higher level of care. The patient was started on BiPAP for acute hypoxic respiratory failure. Vancomycin and Zosyn were started to treat possible aspiration pneumonia. Steroids were started for vasculitis. Vancomycin was later discontinued. Procalcitonin was drawn which was indeterminate at 0.76 then increased to 1.16. Palliative Care was consulted, came and spoke with the family and it was decided to make the patient DNAR. The patient showed no improvement over a few days and was starting to show signs of fatigue. Palliative again talked with the family, the family opted for hospice care. The patient was taken off of bipap and the patient was discharged to inpatient hospice. The patient had a hemoglobin drop on admission from 8.8 to 6.5. The patient was given 2 units of packed red blood cells on 04/10. It is uncertain if the patient had a bleed or if it was secondary to renal disease and decreased production of red blood cells. GI, Dr. Hernandez was consulted. The patient was started on Protonix b.i.d. Her hemoglobin remained stable after that point and no further interventions were done. The patient had an elevated BNP on admission and chest x-ray showed fluid overload. An echo was done, which showed ejection fraction of 50% to 55% on 04/10/2019. Dysphagia. The patient was n.p.o. until she was placed on hospice care. The patient had severe protein-calorie malnutrition with a weight loss of 9.7% over the prior 6 weeks. Her prealbumin was low at 8.0. She was discharged on comfort measures. Acute on chronic kidney disease. Dr. Ferrer was consulted. The patient was given albumin and Lasix. It is likely that her creatinine was elevated due to intrinsic cause with ANCA vasculitis. The patient was started on methylprednisolone and continued until she opted out of IVs or medications and wanted to be only on comfort measures and hospice care. DISPOSITION: Guarded. DISCHARGE INSTRUCTIONS: 1. Location: Inpatient hospice. 2. Diet: Comfort measures. 3. Activity: Comfort measures. 4. Followup: None. Job ID: [id number] MTDD
--- NOTE | 2019-04-14 10:03 | EKG ---
Test Reason : STAT Blood Pressure : / mmHG Vent. Rate : 110 BPM Atrial Rate : 110 BPM P-R Int : 146 ms QRS Dur : 082 ms QT Int : 290 ms P-R-T Axes : 038 -41 190 degrees QTc Int : 392 ms Sinus tachycardia Left axis deviation Nonspecific ST and T wave abnormality Abnormal ECG Confirmed by YULI GARZA, MAIN ([id number]) on 04/14/2019 10:03:17 AM Referred By: Sherri ZAZUETA Confirmed By:MAIN ROLDAN MD
== END 2019-04-13 14:32 | disposition hospice, inpatient (51) | DRG 177 ==
LOC: CCU 22:02 → ONC 04-12 18:14
PROVIDERS: ADMIT Family Medicine; ATTEND Family Medicine
PROC: 5A09457 Assistance with Respiratory Ventilation, 24-96 Consecutive Hours, Continuous Positive Airway Pressure (ICD-10-PCS; principal; 2019-04-10)
DX: J69.0 Pneumonitis due to inhalation of food and vomit (principal); E43 Unspecified severe protein-calorie malnutrition; J96.01 Acute respiratory failure with hypoxia; N17.9 Acute kidney failure, unspecified; G93.40 Encephalopathy, unspecified; E87.2 Acidosis; K27.9 Peptic ulcer, site unspecified, unspecified as acute or chronic, without hemorrhage or perforation; I51.7 Cardiomegaly; Z51.5 Encounter for palliative care; D63.8 Anemia in other chronic diseases classified elsewhere; I77.6 Arteritis, unspecified; E78.5 Hyperlipidemia, unspecified; R53.81 Other malaise; M05.20 Rheumatoid vasculitis with rheumatoid arthritis of unspecified site; G62.9 Polyneuropathy, unspecified; N18.9 Chronic kidney disease, unspecified; I12.9 Hypertensive chronic kidney disease with stage 1 through stage 4 chronic kidney disease, or unspecified chronic kidney disease; Z89.519 Acquired absence of unspecified leg below knee; Z96.641 Presence of right artificial hip joint; Z98.51 Tubal ligation status
CPT/HCPCS: 36415; 36416; 36430; 71045; 74019; 76700; 80053; 80500; 81001; 82274; 82533; 82570; 82728; 82805; 83540; 83550; 83735; 83880; 84100; 84134; 84145; 84156; 84300; 84443; 84484; 85025; 85362; 85379; 85384; 85610; 85611; 85652; 85730; 85732; 86140; 86850; 86900; 86901; 93005; 93010; 93306; 94640; 94660; A4217; C1751; C9113; J1630; J1940; J2060; J2270; J2543; J2920; J3370; J3480; J3490; J7050; J7611; P9016; P9047

== ENCOUNTER 2019-04-13 14:50 | Inpatient (IN) | payer OTHER ==
[2019-04-13] MEDS ORDERED: Ondansetron PF 4 MG/2 ML Vial IVP PRN (15:24)
[2019-04-13] MEDS ORDERED: diphenhydrAMINE 50 MG/ML VIAL IVP PRN (15:24)
[2019-04-13] MEDS ORDERED: Scopolamine 1.5 mg/72 hour Patch TOP PRN (15:24)
[2019-04-13] MEDS ORDERED: Acetaminophen 650 MG Suppository PR PRN (15:24)
[2019-04-13] MEDS ORDERED: Morphine 4 MG/ML VIAL SLOW IVP PRN (15:26)
[2019-04-13 15:40] VITALS: BMI 25.4
[2019-04-13] MEDS: Morphine 4 MG/ML VIAL SLOW IVP SCH ×3 (17:41→23:54)
[2019-04-13] MEDS: Lorazepam 2 MG/ML VIAL SLOW IVP SCH ×5 (17:42→23:53)
[2019-04-13 19:46] VITALS: BP 113/69; TEMP 97.9
[2019-04-14] MEDS: Lorazepam 2 MG/ML VIAL SLOW IVP SCH ×3 (02:11→06:34)
[2019-04-14] MEDS: Morphine 4 MG/ML VIAL SLOW IVP SCH (04:08)
--- NOTE | 2019-04-17 13:58 | DIS ---
DATE OF ADMISSION: 04/13/2019 DATE OF DISCHARGE: 04/14/2019 DATE OF : The patient's date of was April 14, 2019 at 0555 hours. REASON FOR ADMISSION: To inpatient hospice was: 1. Sepsis secondary to aspiration pneumonia with acute respiratory failure. 2. History of recently diagnosed malignancy with plans for no intervention or further treatment. 3. Acute encephalopathy secondary to #1 and #2 above. BRIEF SUMMARY OF HISTORY AND PHYSICAL: The patient is a 73-year-old white female, who recently underwent a BKA secondary to complications related to her ANCA vasculitis. The patient was transferred from [facility] to [place], where she was undergoing rehab. The patient had overall deterioration status with failure to thrive with severe protein-calorie malnutrition and appeared to have developed an aspiration pneumonia and was transferred back to [facility]. While in [facility], the patient continued to decline and deteriorates to the point where family felt it was most appropriate for palliative and comfort care measures only, especially with newly diagnosed terminal malignancy as well as her failure to respond to aggressive therapy for her aspiration pneumonia. The patient was admitted to inpatient hospice on April 13, 2019. She required inpatient status due to significant air hunger requiring IV morphine as well as IV Ativan for terminal restlessness. She was given other comfort measures including scopolamine patch and positional changes to help with her overall discomfort. The patient within 24 hours on April 14, 2019 at 0555 hours. The patient was found by a nurse to have lack of respirations, no pulse, no response to stimuli and was pronounced at that time. Cause of was likely asystole secondary to cardiac arrhythmia from acute respiratory failure. Family was consoled and body was released to home. Job ID: [id number]
== END 2019-04-14 08:50 | disposition expired | DRG 951 ==
LOC: ONC 14:50
PROVIDERS: ADMIT Family Medicine; ATTEND Family Medicine
DX: Z51.5 Encounter for palliative care (principal); J69.0 Pneumonitis due to inhalation of food and vomit; E43 Unspecified severe protein-calorie malnutrition; J96.01 Acute respiratory failure with hypoxia; A41.9 Sepsis, unspecified organism; G93.41 Metabolic encephalopathy; N17.9 Acute kidney failure, unspecified; I12.9 Hypertensive chronic kidney disease with stage 1 through stage 4 chronic kidney disease, or unspecified chronic kidney disease; N18.9 Chronic kidney disease, unspecified; Z89.512 Acquired absence of left leg below knee; Z79.899 Other long term (current) drug therapy; F32.9 Major depressive disorder, single episode, unspecified; E78.5 Hyperlipidemia, unspecified; Z96.641 Presence of right artificial hip joint; Z98.42 Cataract extraction status, left eye; Z98.41 Cataract extraction status, right eye; Z87.891 Personal history of nicotine dependence; I51.7 Cardiomegaly; I77.6 Arteritis, unspecified; D72.829 Elevated white blood cell count, unspecified; M05.20 Rheumatoid vasculitis with rheumatoid arthritis of unspecified site; G62.9 Polyneuropathy, unspecified; Z68.25 Body mass index [BMI] 25.0-25.9, adult
CPT/HCPCS: J2060; J2270